=== PATIENT | male | born 1960 | race Hispanic/Latino ===

== ENCOUNTER → 2016-08-05 | Outpatient (REF) | payer MEDICARE, MEDICAID | LOC: M SFHCPLAZ 12:22 | PROVIDERS: ATTEND Family Medicine | DX: E11.9 Type 2 diabetes mellitus without complications (principal); Z86.39 Personal history of other endocrine, nutritional and metabolic disease | CPT/HCPCS: 36415; 82043; 83036; 84443; G0463 ==

== ENCOUNTER → 2016-09-15 | Outpatient (REF) | payer MEDICARE, MEDICAID | LOC: M SFHCPLAZ 14:24 | PROVIDERS: ATTEND Family Medicine | DX: N52.9 Male erectile dysfunction, unspecified (principal); E03.9 Hypothyroidism, unspecified | CPT/HCPCS: 36415; 84403; 84443; G0463 ==

== ENCOUNTER → 2016-10-29 | Outpatient (REF) | payer MEDICARE, MEDICAID | LOC: M LABDRAW1 13:55 | PROVIDERS: ATTEND Family Medicine | DX: M25.562 Pain in left knee (principal); E03.9 Hypothyroidism, unspecified; R73.01 Impaired fasting glucose ==

== ENCOUNTER → 2016-11-10 | Outpatient (REF) | payer MEDICARE, MEDICAID | LOC: M SFHCPLAZ 09:46 | PROVIDERS: ATTEND Family Medicine | DX: E11.65 Type 2 diabetes mellitus with hyperglycemia (principal) | CPT/HCPCS: 36415; 80061; 94010; G0463 ==

== ENCOUNTER → 2016-11-14 | Outpatient (CLI) | payer MEDICARE, MEDICAID ==
--- NOTE | 2016-11-14 12:00 | REP ---
Chest two views HISTORY: Shortness of breath Comparison: None The lungs are clear. The heart is normal in size. The pulmonary vasculature is normal in appearance. The bony structure is intact. IMPRESSION: No acute disease. Signed by Georges Young MD 11/14/2016 11:52 A
== END ==
LOC: M RAD 11:27
PROVIDERS: ATTEND Family Medicine
DX: R06.02 Shortness of breath (principal)

== ENCOUNTER → 2016-11-28 | Outpatient (CLI) | payer MEDICARE, MEDICAID ==
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
== END ==
LOC: M PAIN 10:00
PROVIDERS: ATTEND Anesthesiology
DX: G89.21 Chronic pain due to trauma (principal); M51.17 Intervertebral disc disorders with radiculopathy, lumbosacral region; M47.816 Spondylosis without myelopathy or radiculopathy, lumbar region; M47.817 Spondylosis without myelopathy or radiculopathy, lumbosacral region; M79.1 Myalgia; E11.42 Type 2 diabetes mellitus with diabetic polyneuropathy; E03.9 Hypothyroidism, unspecified; F51.01 Primary insomnia; F17.210 Nicotine dependence, cigarettes, uncomplicated; Z79.4 Long term (current) use of insulin; Z79.82 Long term (current) use of aspirin; Z79.899 Other long term (current) drug therapy; Z86.59 Personal history of other mental and behavioral disorders

== ENCOUNTER → 2016-12-02 | Outpatient (CLI) | payer MEDICARE, MEDICAID ==
--- NOTE | 2016-12-02 09:08 | REP ---
MR LUMBAR SPINE WITHOUT CONTRAST: HISTORY: Back pain. A rudimentary disc is present at the S1-2 level. Decreased signal intensity on T2-weighted images is present in the L5-S1 intervertebral disc. The disc is decreased in height. These findings are consistent with disc degeneration. There is no disc bulge or herniation at the L1-2 and L2-3 levels. The nerves exit the neural foramina without compression. A diffuse disc bulge is present at the L3-4 level. There is minimal compression of the thecal sac. The L3 nerves exit the neural foramina without compression. A diffuse disc bugle is present at the L4-5 level. There is minimal compression of the thecal sac. The L4 nerves exit the neural foramina without compression. A 5 mm cyst is present posterior to the left L4-5 facet joint. A diffuse disc bulge is present at the L5-S1 level. There is minimal compression of the thecal sac. There is hypertrophy of the posterior articulating facets. The L5 nerves exit the neural foramina without compression. The conus medullaris is normal in appearance terminating at the level of the T12-L1 intervertebral disc. A hemangioma is present in the L2 vertebral body. Normal signal intensity is present in the remaining lumbar vertebral bodies. IMPRESSION: Diffuse disc bulges at the L3-4 through L5-S1 levels with minimal thecal sac compression. Signed by Georges Young MD 12/02/2016 09:10 A
== END ==
LOC: M RAD 07:21
PROVIDERS: ATTEND Anesthesiology
DX: M51.86 Other intervertebral disc disorders, lumbar region (principal); M51.87 Other intervertebral disc disorders, lumbosacral region

== ENCOUNTER → 2016-12-17 | Outpatient (CLI) | payer MEDICARE, MEDICAID ==
--- NOTE | 2017-01-07 01:40 | ECWPNPC ---
PATIENT NAME: JESSICA MURRAY : 1960 GENDER: MALE VISIT DATE: 12/17/2016 DISCHARGE DATE: 12/17/16 1436 VISIT LOCKED DATE TIME: PHYSICIAN: FIDELIA ANDRADE RESOURCE: FIDELIA ANDRADE REASON FOR APPOINTMENT 1. LOW BACK PAIN-NEEDS ASSISTANCE W/PAPERWORK HISTORY OF PRESENT ILLNESS HISTORY OF PRESENT ILLNESS: PAIN THE PATIENT DESCRIBES THE PAIN... FALL RISK SCREENING: SCREENING :NO FALLS IN THE PAST YEAR TODAY'S VISIT: NOTES: RATES PAIN TODAY 7/10. DESCRIBES PAIN CENTERED ACROSS THE LOW BACK AND IS ACHING. CURRENT MEDICATIONS TAKING TRAMADOL HCL 50 MG TABLET 1 TABLET NEEDED ORALLY TWICE DAILY NEEDED FOR SEVERE PAIN. MDD: 2 TAKING CHANTIX STARTING MONTH EVON 0.5 MG X 11 & 1 MG X 42 TABLET DIRECTED ORALLY DIRECTED, NOTES: FOR SMOKING. TAKE 0.5 MG DAILY FOR THREE DAYS, THEN 0.5 MG TWICE DAILY FOR 3 DAYS, THEN 1 MG TWICE DAILY THEREAFTER. TAKING LEVOTHYROXINE SODIUM 75 MCG TABLET 1 TABLET ON AN EMPTY STOMACH IN THE MORNING ORALLY ONCE A DAY, NOTES: STOP 50 MCG TABS AND START 75 MCG TABS TAKING TERBINAFINE HCL 250 MG TABLET 1 TABLET ORALLY ONCE A DAY TAKING LAC-HYDRIN 12 % LOTION 2 GRAM, 2 PEA-SIZED AMOUNT, FOR THE BOTTOM OF EACH FOOT APPLICATION TO AFFECTED AREA EXTERNALLY TWICE A DAY TAKING GABAPENTIN 300 MG CAPSULE 1 TABLET ORALLY THREE TIMES A DAY TAKING PEN NEEDLES 1/2" 29G X 12MM MISCELLANEOUS DIRECTED SUBCUTANEOUSLY DAILY. DX: Z79.4 TAKING LISINOPRIL 2.5 MG TABLET 1 TABLET ORALLY ONCE A DAY TAKING VENLAFAXINE HCL ER 37.5 MG CAPSULE EXTENDED RELEASE 24 HOUR 1 CAPSULE WITH FOOD ORALLY ONCE A DAY TAKING ZYPREXA 5 MG TABLET 1 TABLET ORALLY AT BEDTIME, NOTES: FOR YOUR SCHIZOPHRENIA. TAKING TRAZODONE HCL 100 MG TABLET 1 TABLET AT BEDTIME ORALLY DAILY AT BEDTIME TAKING CHANTIX CONTINUING MONTH EVON 1 MG TABLET 1 TABLET ORALLY TWICE A DAY TAKING CIALIS 5 MG TABLET 1/2 TABLET ORALLY ONCE A DAY TAKING PROAIR HFA 108 (90 BASE) MCG/ACT AEROSOL SOLUTION 2 PUFFS NEEDED INHALATION EVERY 4 HRS TAKING FLUTICASONE PROPIONATE 50 MCG/ACT SUSPENSION 1 SPRAY IN EACH NOSTRIL NASALLY DAILY BEFORE BEDTIME TAKING METFORMIN HCL 500 MG TABLET 2 TABS ORALLY BEFORE BREAKFAST AND DINNER TAKING TOUJEO SOLOSTAR PENS 450 U/1.5ML PREFILLED PENS 55 UNITS SUBCUTANEOUSLY AT BREAKFAST, NOTES: CALL MD IF FASTING SUGARS ARE BELOW 80 OR GREATER THAN 150 FOR HELP WITH TITRATION. TAKING ATORVASTATIN CALCIUM 20 MG TABLET 1 TABLET ORALLY ONCE A DAY TAKING ASPIR-81 81 MG TABLET DELAYED RELEASE 1 TABLET ORALLY ONCE A DAY NOT-TAKING OXYCODONE HCL 30 MG TABLET 1 TABLET NEEDED ORALLY BID, NOTES: NO LONGER TAKING NOT-TAKING ROXICODONE 30 MG TABLET 1 TABLET NEEDED ORALLY BEFORE BEDTIME, NOTES: NO LONGER TAKING NOT-TAKING GABAPENTIN 300 MG CAPSULE 1 CAPSULE ORALLY THREE TIMES A DAY NOT-TAKING TRAMADOL HCL 50 MG TAB TAKE ONE TABLET BY MOUTH TWICE A DAY NEEDED FOR SEVERE PAIN MAXIMUM DAILY DOSE = 2 TABLETS , NOTES: DUPLICATE NOT-TAKING HUMULIN 70/30 (70-30) 100 UNIT/ML SUSPENSION INJ 30 UNITS SQ AT 9 AM AND 25 UNITS AT 9 PM SUBCUTANEOUS TWICE A DAY NOT-TAKING RESTORIL 30 MG CAPSULE 1 CAPSULE AT BEDTIME NEEDED ORALLY ONCE A DAY, NOTES: HAS NOT TAKEN IN MONTHS..WILL OBTAIN RECORDS MEDICATION LIST REVIEWED AND RECONCILED WITH THE PATIENT PAST MEDICAL HISTORY SCHIZOPHRENIA? - [place] CHRONIC PAIN GOITER S/P RESECTION IDDM, WITH POLYNEUROPATHY, ON TOUJEO 50 UNITS HS HYPOTHYROIDISM HIGH CHOLESTEROL S/P HEAD INJURY FROM FALL 2003 ALLERGIES N.K.D.A. REVIEW OF SYSTEMS REVIEWED BY: PROVIDER: FIDELIA TORO . CONSTITUTIONAL: ANY CHANGE IN YOUR MEDICAL CONDITION? NO . CHILLS NO . FEVER NO . INFECTION: DO YOU HAVE NEW INFECTIONS? NO . DO YOU HAVE HISTORY OF MRSA? NO . MUSCULOSKELETAL: ANY NEW PATTERNS OF PAIN OR NUMBNESS? YES . GASTROENTEROLOGY: ANY NEW CHANGE IN BOWEL CONTROL? NO . GENITOURINARY: ANY NEW CHANGE IN BLADDER CONTROL? NO . IS THERE A CHANCE YOU COULD BE ? NO . HEMATOLOGY/LYMPH: DO YOU TAKE ANY BLOOD THINNERS? (FOR EXAMPLE- COUMADIN, PLAVIX, AGGRENOX, PLATEL, PRADAXA, OR XARELTO) NO . WHEN WAS YOUR LAST DOSE? DATE: TIME: . NEUROLOGY: HAVE YOU FALLEN IN THE PAST 6 MONTHS? NO . ANY NEW EXTREMITY NUMBNESS OR WEAKNESS? NO . CARDIOLOGY: DO YOU HAVE A PACEMAKER OR DEFIBRILLATOR? NO . RESPIRATORY: HAVE YOU BEEN SICK IN THE PAST WEEK? NO . FEVER NO . FLU LIKE SYMPTOMS? NO . DO YOU USE ANY TYPE OF TOBACCO (SMOKE, SMOKELESS, CHEW)? ON CHANTIX STARTING SMOKING CESSATION . COUGH NO . INTEGUMENTARY: DO YOU HAVE ANY RASHES OR OPEN SORES? NO . ALLERGIC/IMMUNO: ARE YOU ALLERGIC TO SHELLFISH OR IV DYE? NO . ANY NEW ALLERGIES? NO . PSYCHIATRIC: DO YOU HAVE THOUGHTS OF HURTING YOURSELF OR SOMEONE ELSE? NO . ARE YOU ABUSED, NEGLECTED, OR IN AN UNSAFE ENVIRONMENT? NO . ENDOCRINOLOGY: ARE YOU DIABETIC? YES - BLOOD SUGARS 90-115 . OTHER: DO YOU NEED ANY PRESCRIPTIONS? YES . IF YES, PLEASE LIST: PAIN MEDICATIONS (TOOK OXY AT OTHER CLINIC) . ANY NEW PROBLEMS WITH YOUR MEDICATIONS? NO . WHEN DID YOU LAST EAT? ____ . WHEN DID YOU LAST DRINK? ____ . WHAT DID YOU LAST DRINK? ____ . NAME OF PERSON DRIVING YOU HOME? ____ . DO YOU HAVE ANY OTHER QUESTIONS OR CONCERNS NO . VITAL SIGNS WT 213 LBS, HT 5'10.5", BMI 30.13 INDEX, BP 112/67 MM HG, HR 62 /MIN, RR 18 /MIN, OXYGEN SAT % 99, REVIEWED BY: NL. EXAMINATION GENERAL EXAMINATION: PSYCHALERT , ORIENTED X 3 . LUNGS:CLEAR TO AUSCULTATION BILATERALLY. HEART:HEART RATE REGULAR. MUSCULOSKELETAL:MUSCLE STRENGTH TESTING 5/5 BILATERAL LOWER EXTREMITIES. TENDER TO PALPATION OVER LUMBOSACRAL AXIS. 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 SPONDYLOSIS WITHOUT MYELOPATHY OR RADICULOPATHY, LUMBOSACRAL REGION INJECTION FACET JOINT/NERVE LUMBAR/SACRALFIDELIA ANDRADE 12/17/2016 2:18:14 PM > BILATERAL LUMBAR FACET BLOCK - THERAPEUTIC PREVENTIVE MEDICINE DIUSCUSSED PREPROCEDURE CARE WITH PT AND REVIEWED WITH HIS FAMILY / EXPRESSED UNDERSTANDING. PROCEDURE CODES FA211 ESTABILISHED PATIENT [facility] CHARGE G8730 PAIN ASSESS POS TOOL F/U PLAN DOC G8427 DOC MEDS VERIFIED W/PT OR RE DISPOSITION & COMMUNICATION FOLLOW UP AFTER INJECTION (REASON: CHECK AUTH FOR PT AND THERAPEUTIC LUMBAR FACET BLOCK L4-5 AND L5-S1) ELECTRONICALLY SIGNED BY DEONTE FAY ON 01/06/2017 AT 06:13 PM EDT DISCLAIMER : THIS IS A VISIT SUMMARY EXTRACTED FROM THE [employer] CHART. IT IS NOT A COPY OF THE [employer] PROGRESS NOTE. QAMAR
== END ==
LOC: M PAIN 13:15
PROVIDERS: ATTEND Nurse Practitioner Family
DX: G89.29 Other chronic pain (principal); M51.17 Intervertebral disc disorders with radiculopathy, lumbosacral region; M47.816 Spondylosis without myelopathy or radiculopathy, lumbar region; M47.817 Spondylosis without myelopathy or radiculopathy, lumbosacral region; M79.1 Myalgia; Z87.820 Personal history of traumatic brain injury; Z79.4 Long term (current) use of insulin; Z79.82 Long term (current) use of aspirin; Z79.899 Other long term (current) drug therapy

== ENCOUNTER → 2016-12-31 | Outpatient (CLI) | payer MEDICARE, MEDICAID ==
[~2016-12-31] MED LIST: BUPIVACAINE HCL 0.25% 30 ML VIAL As Ordered ONE; ISOVUE-M 300 61% 15ML VIAL (Q9967) As Ordered ONE; LIDOCAINE 1% SDV INJ 30 ML VIAL As Ordered ONE; TRIAMCINOLONE ACETONIDE SUSP 40 MG/ML VIAL (J3301) As Ordered ONE; diazePAM 5 MG TAB As Ordered ONE; oxyCODONE 5MG TAB As Ordered ONE
--- NOTE | 2016-12-31 13:32 | REP ---
Partial lumbar spine series: Single view . History: Injection procedure for pain. 19 seconds of fluoroscopy time is reported. Findings: A single fluoroscopically obtained last image hold procedural spot radiograph of the lumbar spine documents needle position and contrast injection associated with injection procedure. Signed by Reji Robles MD 12/31/2016 01:23 P
--- NOTE | 2017-01-01 00:02 | ECWPNPC ---
PATIENT NAME: JESSICA MURRAY : 1960 GENDER: MALE VISIT DATE: 12/31/2016 DISCHARGE DATE: 12/31/16 1326 VISIT LOCKED DATE TIME: PHYSICIAN: RUBY FERNANDEZ RESOURCE: RUBY FERNANDEZ REASON FOR APPOINTMENT 1. KEEGAN LUMBER FACET, THERA CURRENT MEDICATIONS TAKING LEVOTHYROXINE SODIUM 75 MCG TABLET 1 TABLET ON AN EMPTY STOMACH IN THE MORNING ORALLY ONCE A DAY, NOTES: 12-30-16 1500 TAKING TERBINAFINE HCL 250 MG TABLET 1 TABLET ORALLY ONCE A DAY, NOTES: ? TAKING LAC-HYDRIN 12 % LOTION 2 GRAM, 2 PEA-SIZED AMOUNT, FOR THE BOTTOM OF EACH FOOT APPLICATION TO AFFECTED AREA EXTERNALLY TWICE A DAY, NOTES: NONE TAKING GABAPENTIN 300 MG CAPSULE 1 TABLET ORALLY THREE TIMES A DAY, NOTES: NONE TAKING PEN NEEDLES 1/2" 29G X 12MM MISCELLANEOUS DIRECTED SUBCUTANEOUSLY DAILY. DX: Z79.4 TAKING LISINOPRIL 2.5 MG TABLET 1 TABLET ORALLY ONCE A DAY, NOTES: 12-30-16 1500 TAKING VENLAFAXINE HCL ER 37.5 MG CAPSULE EXTENDED RELEASE 24 HOUR 1 CAPSULE WITH FOOD ORALLY ONCE A DAY, NOTES: NONE TAKING ZYPREXA 5 MG TABLET 1 TABLET ORALLY AT BEDTIME, NOTES: 12-30-161499 TAKING TRAZODONE HCL 100 MG TABLET 1 TABLET AT BEDTIME ORALLY DAILY AT BEDTIME, NOTES: 12-29-16 TAKING CHANTIX CONTINUING MONTH EVON 1 MG TABLET 1 TABLET ORALLY TWICE A DAY TAKING CIALIS 5 MG TABLET 1/2 TABLET ORALLY ONCE A DAY TAKING PROAIR HFA 108 (90 BASE) MCG/ACT AEROSOL SOLUTION 2 PUFFS NEEDED INHALATION EVERY 4 HRS, NOTES: 12-30-16 TAKING FLUTICASONE PROPIONATE 50 MCG/ACT SUSPENSION 1 SPRAY IN EACH NOSTRIL NASALLY DAILY BEFORE BEDTIME, NOTES: 12-30-16 2100 TAKING METFORMIN HCL 500 MG TABLET 2 TABS ORALLY BEFORE BREAKFAST AND DINNER, NOTES: 12-30-16 0900 TAKING TOUJEO SOLOSTAR PENS 450 U/1.5ML PREFILLED PENS 55 UNITS SUBCUTANEOUSLY AT BREAKFAST, NOTES: 12-30-16 1800 TAKING ATORVASTATIN CALCIUM 20 MG TABLET 1 TABLET ORALLY ONCE A DAY, NOTES: 12-29-16 2100 TAKING ASPIR-81 81 MG TABLET DELAYED RELEASE 1 TABLET ORALLY ONCE A DAY, NOTES: 12-30-16 0900 TAKING BACLOFEN 10 MG TABLET 1 TABLET WITH FOOD OR MILK ORALLY THREE TIMES A DAY, NOTES: 12-30-162099 TAKING TRAMADOL HCL 50 MG TABLET 1 TABLET NEEDED ORALLY TWICE DAILY NEEDED FOR SEVERE PAIN. MDD: 2, NOTES: 12-30-162099 NOT-TAKING CHANTIX STARTING MONTH EVON 0.5 MG X 11 & 1 MG X 42 TABLET DIRECTED ORALLY DIRECTED, NOTES: 12-29-16 DISCONTINUED OXYCODONE HCL 30 MG TABLET 1 TABLET NEEDED ORALLY BID, NOTES: NO LONGER TAKING DISCONTINUED ROXICODONE 30 MG TABLET 1 TABLET NEEDED ORALLY BEFORE BEDTIME, NOTES: NO LONGER TAKING DISCONTINUED GABAPENTIN 300 MG CAPSULE 1 CAPSULE ORALLY THREE TIMES A DAY DISCONTINUED TRAMADOL HCL 50 MG TAB TAKE ONE TABLET BY MOUTH TWICE A DAY NEEDED FOR SEVERE PAIN MAXIMUM DAILY DOSE = 2 TABLETS , NOTES: DUPLICATE DISCONTINUED HUMULIN 70/30 (70-30) 100 UNIT/ML SUSPENSION INJ 30 UNITS SQ AT 9 AM AND 25 UNITS AT 9 PM SUBCUTANEOUS TWICE A DAY DISCONTINUED RESTORIL 30 MG CAPSULE 1 CAPSULE AT BEDTIME NEEDED ORALLY ONCE A DAY, NOTES: HAS NOT TAKEN IN MONTHS..WILL OBTAIN RECORDS MEDICATION LIST REVIEWED AND RECONCILED WITH THE PATIENT PAST MEDICAL HISTORY SCHIZOPHRENIA? - [place] CHRONIC PAIN GOITER S/P RESECTION IDDM, WITH POLYNEUROPATHY, ON TOUJEO 50 UNITS HS HYPOTHYROIDISM HIGH CHOLESTEROL S/P HEAD INJURY FROM FALL 2003 ALLERGIES N.K.D.A. VITAL SIGNS WT 208 LBS, HT 5'10.5", BMI 29.42 INDEX, BP 99/58 MM HG, HR 58 /MIN, RR 18 /MIN, TEMP 97.5 F, OXYGEN SAT % 96%, NA INITIALS AW 1111, REVIEWED BY: CM. ASSESSMENTS SPONDYLOSIS OF LUMBAR REGION WITHOUT MYELOPATHY OR RADICULOPATHY - M47.816 (PRIMARY) SPONDYLOSIS OF LUMBOSACRAL REGION WITHOUT MYELOPATHY OR RADICULOPATHY - M47.817 PROCEDURES PN LUMBAR FACET BLOCK THERAPEUTIC PRE PROCEDURE DIAGNOSIS LUMBAR SPONDYLOSIS, LUMBOSACRAL SPONDYLOSIS POST PROCEDURE DIAGNOSIS LUMBAR SPONDYLOSIS, LUMBOSACRAL SPONDYLOSIS PROCEDURE RIGHT L4-L5 AND RIGHT L5-S1 LUMBAR FACET THERAPEUTIC BLOCK SURGEON DR. RUBY FERNANDEZ SOAKERS SUPERVISOR NONE ANESTHESIA LOCAL PRE PROCEDURE NOTE THE PATIENT HAS A HISTORY OF CHRONIC LOW BACK PAIN. I EVALUATE THE PATIENT AND REVIEWED THE CHART. I WENT OVER THE RISKS, ALTERNATIVES, AND BENEFITS ASSOCIATED WITH THIS PROCEDURE. THE PATIENT WOULD LIKE TO PROCEED AND GIVE CONSENT TO PERFORMED THE PROCEDURE. THE PATIENT DENIES UNEXPLAINABLE WEIGHT LOSS, FEVER, CHILLS, OR NEW CHANGES IN URINARY OR BOWEL CONTROL DESCRIPTION OF PROCEDURE THE PATIENT WAS BROUGHT TO THE PROCEDURE ROOM AND PLACED IN THE PRONE POSITION. THE LUMBOSACRAL AREA WAS CLEANED WITH CHLORAPREP SOLUTION AND DRAPED ASEPTICALLY. THE PROCEDURE WAS DONE UNDER STERILE CONDITIONS. I CHECKED LATERALITY AND THE LEVEL WHERE THE PROCEDURE WAS GOING TO BE PERFORMED WITH THE PATIENT AND THE SUPPORTING STAFF AT THE MOMENT OF THE TIME OUT IN THE PROCEDURE ROOM. UNDER FLUOROSCOPIC GUIDANCE, THE TARGET POINT WAS SELECTED AT THE RIGHT L4-L5 AND RIGHT L5-S1 FACET JOINT. TARGET POINT WAS SELECTED AFTER LATERAL ROTATION AND TILT OF THE MAGNIFIER OF THE C-ARM. LIDOCAINE 0.5% WAS USED TO NUMB THE SKIN AND THE SUBCUTANEOUS TISSUE BELOW IT. SPINAL NEEDLES, 22-GAUGE, WERE ADVANCED UNDER FLUOROSCOPIC GUIDANCE AND FOLLOWING PATIENT FEEDBACK UNTIL THE TARGETS WERE TOUCHED. THE POSITION OF THE NEEDLES WAS VERIFIED WITH AP AND LATERAL VIEWS. AFTER PROPER POSITION OF THE NEEDLES WAS ACHIEVED, ISOVUE-M DYE 30% 0.1 ML WAS INJECTED SHOWING ADEQUATE SPREAD OF THE DYE. THEN A SOLUTION OF 1.9 ML OF BUPIVACAINE 0.125% OF KENALOG 10 MG WAS INJECTED AT EACH SITE. THERE WAS NO EVIDENCE OF BLOOD, PARESTHESIA OR CEREBROSPINAL FLUID DURING THE PROCEDURE. THE PATIENT WAS SENT TO THE RECOVERY ROOM. THE PATIENT WAS MOVING THE EXTREMITIES AND DOING WELL. THERE WAS NO COMPLICATION DURING THE PROCEDURE. FLUOROSCOPY TIME WAS 19 SECONDS POST PROCEDURE NOTE THE PATIENT WILL BE SEEN IN A FOLLOW UP IN THE NEXT FEW WEEKS. INSTRUCTIONS WERE GIVEN, QUESTIONS WERE ANSWERED, AND THE PATIENT EXPRESSED UNDERSTANDING AND AGREES WITH THE PLAN. I, PHUC GREER, DOCUMENTED THE ABOVE INFORMATION ACTING A SCRIBE FOR DR. FERNANDEZ. I HAVE REVIEWED THE ABOVE DOCUMENT, WRITTEN BY PHUC PETER AND I VERIFY THAT IT IS ACCURATE DIAGNOSTIC IMAGING [facility] FACET BLOCK (PAIN)[id number] PROCEDURE CODES 39032 INJ PARAVERT F JNT L/S 1 LEV 43597 INJ PARAVERT F JNT L/S 2 LEV 6045F RADXPS IN END [id number] PXD DISPOSITION & COMMUNICATION FOLLOW UP 3 WEEKS ELECTRONICALLY SIGNED BY RUBY FERNANDEZ MD ON 12/31/2016 AT 09:23 PM EDT DISCLAIMER : THIS IS A VISIT SUMMARY EXTRACTED FROM THE [employer] CHART. IT IS NOT A COPY OF THE [employer] PROGRESS NOTE. QAMAR
== END ==
LOC: M PAIN 11:00
PROVIDERS: ATTEND Anesthesiology
DX: G89.29 Other chronic pain (principal); M47.816 Spondylosis without myelopathy or radiculopathy, lumbar region; M47.817 Spondylosis without myelopathy or radiculopathy, lumbosacral region; F25.9 Schizoaffective disorder, unspecified; E11.9 Type 2 diabetes mellitus without complications; E03.9 Hypothyroidism, unspecified; F51.01 Primary insomnia; F17.200 Nicotine dependence, unspecified, uncomplicated; Z79.4 Long term (current) use of insulin; Z79.82 Long term (current) use of aspirin; Z79.899 Other long term (current) drug therapy
CPT/HCPCS: 64493; 64494; J3301; Q9967

== ENCOUNTER 2017-01-08 07:13 | Outpatient (RCR) | payer MEDICARE, MEDICAID | END 2017-01-10 | LOC: M PT 07:13 | PROVIDERS: ATTEND Nurse Practitioner Family | DX: Z51.89 Encounter for other specified aftercare (principal); M51.17 Intervertebral disc disorders with radiculopathy, lumbosacral region; M47.816 Spondylosis without myelopathy or radiculopathy, lumbar region; M47.817 Spondylosis without myelopathy or radiculopathy, lumbosacral region; M79.1 Myalgia | CPT/HCPCS: 97110; 97140; 97162; G8978; G8979 ==

== ENCOUNTER 2017-01-29 08:22 | Outpatient (RCR) | payer MEDICARE, MEDICAID | END 2017-02-10 | LOC: M PT 08:22 | PROVIDERS: ATTEND Nurse Practitioner Family | DX: Z51.89 Encounter for other specified aftercare (principal); M79.1 Myalgia; M51.17 Intervertebral disc disorders with radiculopathy, lumbosacral region; M47.816 Spondylosis without myelopathy or radiculopathy, lumbar region; M47.817 Spondylosis without myelopathy or radiculopathy, lumbosacral region ==

== ENCOUNTER → 2017-02-24 | Outpatient (CLI) | payer MEDICARE, MEDICAID ==
--- NOTE | 2017-03-12 00:38 | ECWPNPC ---
PATIENT NAME: JESSICA MURRAY : 1960 GENDER: MALE VISIT DATE: 02/24/2017 DISCHARGE DATE: 02/24/17 0951 VISIT LOCKED DATE TIME: PHYSICIAN: FIDELIA ANDRADE RESOURCE: FIDELIA ANDRADE REASON FOR APPOINTMENT 1. MEDS HISTORY OF PRESENT ILLNESS HISTORY OF PRESENT ILLNESS: PAIN THE PATIENT DESCRIBES THE PAIN... FALL RISK SCREENING: SCREENING :NO FALLS IN THE PAST YEAR TODAY'S VISIT: NOTES: RATES PAIN TODAY 8/10. DESCRIBES PAIN CONSTANT, SHARP AND STABBING. PAIN IS CENTED OVER LUMBAR SPINEIS S/P BI;ATERAL LUMBAR FACET BLOCK COMPLETED ON 12/31/16. REPORTS THIS WAS HELPFUL AT DECREASING PAIN IN LOW BACK. . CURRENT MEDICATIONS TAKING CHANTIX CONTINUING MONTH EVON 1 MG TABLET 1 TABLET ORALLY TWICE A DAY TAKING CHANTIX STARTING MONTH EVON 0.5 MG X 11 & 1 MG X 42 TABLET DIRECTED ORALLY DIRECTED TAKING TERBINAFINE HCL 250 MG TABLET 1 TABLET ORALLY ONCE A DAY, NOTES: ? TAKING PEN NEEDLES 1/2" 29G X 12MM MISCELLANEOUS DIRECTED SUBCUTANEOUSLY DAILY. DX: Z79.4 TAKING TRAZODONE HCL 100 MG TABLET 1 TABLET AT BEDTIME ORALLY DAILY AT BEDTIME TAKING CIALIS 5 MG TABLET 1/2 TABLET ORALLY ONCE A DAY TAKING PROAIR HFA 108 (90 BASE) MCG/ACT AEROSOL SOLUTION 2 PUFFS NEEDED INHALATION EVERY 4 HRS TAKING FLUTICASONE PROPIONATE 50 MCG/ACT SUSPENSION 1 SPRAY IN EACH NOSTRIL NASALLY DAILY BEFORE BEDTIME TAKING ADVAIR HFA 115-21 MCG/ACT AEROSOL 2 PUFFS INHALATION TWICE A DAY TAKING AEROCHAMBER W/FLOWSIGNAL - MISCELLANEOUS DIRECTED USE WITH ALBUTEROL AND ADVAIR DIRECTED. DX J44.1 TAKING TRAMADOL HCL 50 MG TABLET 1 TABLET NEEDED ORALLY TWICE DAILY NEEDED FOR SEVERE PAIN. MDD: 2 TAKING VENLAFAXINE HCL ER 75 MG TABLET EXTENDED RELEASE 24 HOUR 1 CAPSULE WITH FOOD ORALLY ONCE A DAY TAKING METFORMIN HCL 500 MG TABLET 2 TABS ORALLY BEFORE BREAKFAST AND DINNER TAKING TOUJANICE SOLOSTAR PENS 450 U/1.5ML PREFILLED PENS 28 UNITS AT BREAKFAST AND 20 UNITS AT DINNER SUBCUTANEOUSLY TWICE DAILY DIRECTED TAKING ATORVASTATIN CALCIUM 20 MG TABLET 1 TABLET ORALLY ONCE A DAY TAKING ASPIR-81 81 MG TABLET DELAYED RELEASE 1 TABLET ORALLY ONCE A DAY TAKING LEVOTHYROXINE SODIUM 75 MCG TABLET 1 TABLET ON AN EMPTY STOMACH IN THE MORNING ORALLY ONCE A DAY, NOTES: [id number] TAKING LAC-HYDRIN 12 % LOTION 2 GRAM, 2 PEA-SIZED AMOUNT, FOR THE BOTTOM OF EACH FOOT APPLICATION TO AFFECTED AREA EXTERNALLY TWICE A DAY, NOTES: NONE TAKING GABAPENTIN 300 MG CAPSULE 2 TABLET ORALLY THREE TIMES A DAY, NOTES: NONE TAKING LISINOPRIL 2.5 MG TABLET 1 TABLET ORALLY ONCE A DAY TAKING ZYPREXA 5 MG TABLET 1 TABLET ORALLY AT BEDTIME TAKING BACLOFEN 10 MG TABLET 1 TABLET WITH FOOD OR MILK ORALLY THREE TIMES A DAY MEDICATION LIST REVIEWED AND RECONCILED WITH THE PATIENT PAST MEDICAL HISTORY SCHIZOPHRENIA? - [place] CHRONIC PAIN GOITER S/P RESECTION IDDM, WITH POLYNEUROPATHY, ON TOUJEO 50 UNITS HS HYPOTHYROIDISM HIGH CHOLESTEROL S/P HEAD INJURY FROM FALL 2003 ALLERGIES N.K.D.A. SOCIAL HISTORY GENERAL: TOBACCO USE ARE YOU A:CURRENT SMOKER HOW MANY CIGARETTES A DAY DO YOU SMOKE?5 OR LESS HOW SOON AFTER YOU WAKE UP DO YOU SMOKE YOUR FIRST CIGARETTE?AFTER 60 MIN HOW OFTEN DO YOU SMOKE CIGARETTES?EVERY DAY PATIENT COUNSELED ON THE DANGERS OF TOBACCO USE AND URGED TO QUIT:08/05/2016 ARE YOU INTERESTED IN QUITTING?READY TO QUIT PREVIOUS QUIT ATTEMPTS?YES, MORE THAN 6 MONTHS AGO. COUNSELED THE PATIENT ON TOBACCO USE, CESSATION [id number]/25/2017 SMOKING CESSATION INFORMATION GIVEN08/05/2016 BMI CARE GOAL FOLLOW-UP ABOVE NORMAL BMI FOLLOW-UPGIVING ENCOURAGEMENT TO EXERCISE ALCOHOL SCREENING DID YOU HAVE A DRINK CONTAINING ALCOHOL IN THE PAST YEAR?NO POINTS0 INTERPRETATIONNEGATIVE RECREATIONAL DRUG USE DRUG USE?NO CAFFEINE CAFFEINE USE?YES COFFEE- 1 CUP A DAY, TEA- TWICE A DAY, SODA- 3 CANS A DAY SEXUAL HX HAD SEX IN THE LAST 12 MONTHS (VAGINAL, ORAL, OR ANAL)?NO HAVE YOU EVER HAD AN STD?NO HIV / HEP-C SCREENING HIV TEST OFFERED TO PATIENT:YES DATE OFFERED:08/05/2016 TEST ACCEPTED:NO REASON:PATIENT DECLINED HEP-C TEST OFFERED TO PATIENT:YES DATE OFFERED:08/05/2016 TEST ACCEPTED:NO REASON:PATIENT DECLINED OCCUPATION: FORMERLY WORKED IN CONSTRUCTION; 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 DIET: CARBOHYDRATE CONTROLLED. EXERCISE: WALKS. MARITAL STATUS: SINGLE; HAS A GIRLFRIEND, . OTHERS AT HOME: LIVES WITH GUSIICAMILA. SHINTO [id number] JEWISH LANGUAGE LANGUAGES SPOKEN:BOTH KOREAN AND WOLOF LEARNING BARRIERS / SPECIAL NEEDS CHANGE FROM LAST VISIT?NO BARRIERS TO LEARNING?NO HEARING IMPAIRED?NO VISION IMPAIRED?NO COGNITIVELY IMPAIRED?NO READINESS TO LEARN?YES LEARNING PREFERENCES?YES :TAPES/VIDEOS, DEMONSTRATION/VERBAL INSTRUCTION LEARNING CAPABILITIES PRESENT?YES NEEDS HELP READING EMOTIONAL BARRIERS?NO SPECIAL DEVICES?YES :CANE, BRACE MARKETING DEVELOPMENT REPRESENTATIVE NEEDED?NO PAIN CLINIC PFS, CLERGY, PUBLIC HEALTH REFERRALS PFS REFERRAL NEEDED?NO CLERGY REFERRAL NEEDED?NO PUBLIC HEALTH REFERRAL NEEDED?NO HAS THE PATIENT BEEN EDUCATED REGARDING HIS/HER PLAN OF CARE?YES HAS THE PATIENT BEEN EDUCATED REGARDING PAIN, THE RISK FOR PAIN, THE IMPORTANCE OF EFFECTIVE PAIN MANAGEMENT, AND THE PAIN ASSESSMENT PROCESS?YES REVIEW OF SYSTEMS REVIEWED BY: PROVIDER: . CONSTITUTIONAL: ANY CHANGE IN YOUR MEDICAL CONDITION? NO . CHILLS NO . FEVER NO . INFECTION: DO YOU HAVE NEW INFECTIONS? NO . DO YOU HAVE HISTORY OF MRSA? NO . MUSCULOSKELETAL: ANY NEW PATTERNS OF PAIN OR NUMBNESS? NO . GASTROENTEROLOGY: ANY NEW CHANGE IN BOWEL CONTROL? NO . GENITOURINARY: ANY NEW CHANGE IN BLADDER CONTROL? NO . IS THERE A CHANCE YOU COULD BE ? NO . HEMATOLOGY/LYMPH: DO YOU TAKE ANY BLOOD THINNERS? (FOR EXAMPLE- COUMADIN, PLAVIX, AGGRENOX, PLATEL, PRADAXA, OR XARELTO) NO . WHEN WAS YOUR LAST DOSE? DATE: TIME: . NEUROLOGY: HAVE YOU FALLEN IN THE PAST 6 MONTHS? NO . ANY NEW EXTREMITY NUMBNESS OR WEAKNESS? NO . CARDIOLOGY: DO YOU HAVE A PACEMAKER OR DEFIBRILLATOR? NO . RESPIRATORY: HAVE YOU BEEN SICK IN THE PAST WEEK? NO . FEVER NO . FLU LIKE SYMPTOMS? NO . COUGH NO . INTEGUMENTARY: DO YOU HAVE ANY RASHES OR OPEN SORES? NO . ALLERGIC/IMMUNO: ARE YOU ALLERGIC TO SHELLFISH OR IV DYE? NO . ANY NEW ALLERGIES? NO . PSYCHIATRIC: DO YOU HAVE THOUGHTS OF HURTING YOURSELF OR SOMEONE ELSE? NO . ARE YOU ABUSED, NEGLECTED, OR IN AN UNSAFE ENVIRONMENT? NO . ENDOCRINOLOGY: ARE YOU DIABETIC? YES . OTHER: DO YOU NEED ANY PRESCRIPTIONS? YES " I NEED HELP WITH BACK PAIN" . IF YES, PLEASE LIST: ____ . ANY NEW PROBLEMS WITH YOUR MEDICATIONS? NO . WHEN DID YOU LAST EAT? ____ . WHEN DID YOU LAST DRINK? ____ . WHAT DID YOU LAST DRINK? ____ . NAME OF PERSON DRIVING YOU HOME? ____ . DO YOU HAVE ANY OTHER QUESTIONS OR CONCERNS NO . SKIN: DO YOU HAVE ANY RASHES OR OPEN SORES? STATES RASH UNDER ARMS . VITAL SIGNS WT 208.0 LBS, HT 5'10.5", BMI 29.42 INDEX, BP 120/59 MM HG, HR 59 /MIN, RR 18 /MIN, TEMP 97.3 F, OXYGEN SAT % 98%, NA INITIALS TL 0857. 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 HAS BEEN TO PHYSICAL THERAPY. STATES IS DOING HIS EXERCISES. USE ASPER CREME, KELLY ICE, OR BIOFREEZE. WALK EVERY DAY. PROCEDURE CODES FA211 ESTABILISHED PATIENT [facility] CHARGE DISPOSITION & COMMUNICATION FOLLOW UP 6 MONTH (REASON: BACK PAIN) ELECTRONICALLY SIGNED BY DEONTE FAY ON 03/10/2017 AT 08:49 AM EST DISCLAIMER : THIS IS A VISIT SUMMARY EXTRACTED FROM THE [employer] CHART. IT IS NOT A COPY OF THE [employer] PROGRESS NOTE. QAMAR
== END | disposition home or self-care (01) ==
LOC: M PAIN 09:00
PROVIDERS: ATTEND Nurse Practitioner Family
DX: G89.29 Other chronic pain (principal); M79.1 Myalgia; M51.17 Intervertebral disc disorders with radiculopathy, lumbosacral region; M47.816 Spondylosis without myelopathy or radiculopathy, lumbar region; M47.817 Spondylosis without myelopathy or radiculopathy, lumbosacral region; Z86.39 Personal history of other endocrine, nutritional and metabolic disease; E11.42 Type 2 diabetes mellitus with diabetic polyneuropathy; E03.9 Hypothyroidism, unspecified; E78.00 Pure hypercholesterolemia, unspecified; Z79.899 Other long term (current) drug therapy; Z79.82 Long term (current) use of aspirin; Z79.4 Long term (current) use of insulin; F17.210 Nicotine dependence, cigarettes, uncomplicated

== ENCOUNTER 2017-04-15 06:00 | Day surgery (SDC) | payer MEDICARE, MEDICAID ==
[2017-04-15] MEDS: LIDOCAINE 3.5 % 1ML OPHTH TOPICAL GEL OU (06:31)
[2017-04-15] MEDS: LR 1,000 ML IV (06:31)
[2017-04-15 06:39] LABS: BEDSIDE GLUCOSE 145 MG/DL (70-105)
[2017-04-15] MEDS: TETRACAINE 0.5% OPHTH SOLN 4ML As Ordered (07:12)
[2017-04-15] MEDS ORDERED: MIDAZOLAM INJ 2 MG/2 ML VIAL (J2250) As Ordered (07:49)
[2017-04-15] MEDS ORDERED: DESFLURANE 240 ML INHALANT As Ordered (07:49)
[2017-04-15] MEDS ORDERED: GLYCOPYRROLATE INJ 0.2 MG/ML 2 ML VIAL As Ordered (07:49)
[2017-04-15] MEDS ORDERED: PROPOFOL 200 MG/20 ML VIAL As Ordered (07:49)
[2017-04-15] MEDS ORDERED: fentaNYL 100 MCG/2 ML INJECTION (J3010) As Ordered (07:49)
[2017-04-15] MEDS ORDERED: LIDOCAINE 2% INJ 100 MG/5 ML SDV (FOR ANES.) As Ordered (07:49)
[2017-04-15] MEDS: POVIDONE-IODINE 5% OPHTH PREP SOL 30ML As Ordered (07:55)
[2017-04-15] MEDS: ERYTHROMYCIN OPHTH OINT As Ordered (08:25)
[2017-04-15] MEDS: LIDOCAINE 2% W/EPIN INJ 20ML **PRES FREE As Ordered (08:28)
== END 2017-04-15 09:49 | disposition home or self-care (01) ==
LOC: M SDC 06:00
DX: H02.401 Unspecified ptosis of right eyelid (principal); T88.59XD Other complications of anesthesia, subsequent encounter; I10 Essential (primary) hypertension; E78.00 Pure hypercholesterolemia, unspecified; E10.9 Type 1 diabetes mellitus without complications; E03.9 Hypothyroidism, unspecified; R06.02 Shortness of breath; Z79.899 Other long term (current) drug therapy; Z79.84 Long term (current) use of oral hypoglycemic drugs; Z79.4 Long term (current) use of insulin; Z72.0 Tobacco use
CPT/HCPCS: 67904

== ENCOUNTER → 2017-05-06 | Outpatient (REF) | payer MEDICARE, MEDICAID | LOC: M SFHCPLAZ 08:39 | DX: E11.9 Type 2 diabetes mellitus without complications (principal); Z53.8 Procedure and treatment not carried out for other reasons ==

== ENCOUNTER → 2017-05-18 | Outpatient (CLI) | payer MEDICARE, MEDICAID, OTHER ==
[2017-05-18 10:58] LABS: ESTIMATED AVERAGE GLUCOSE 169 MG/DL (60-110); HEMOGLOBIN A1c 7.5 %
== END ==
LOC: M LAB 08:04
DX: E11.9 Type 2 diabetes mellitus without complications (principal)
CPT/HCPCS: 83036

== ENCOUNTER → 2017-07-08 | Outpatient (CLI) | payer MEDICARE, MEDICAID | LOC: M SLEEP 18:59 | DX: G47.30 Sleep apnea, unspecified (principal) | CPT/HCPCS: 95810 ==

== ENCOUNTER → 2017-08-06 | Outpatient (REF) | payer MEDICARE, MEDICAID ==
[2017-08-06 11:40] LABS: BASO # 0.1 10^3/uL (0.0-0.2); BASO % 0.7 % (0.0-1.0); EOS # 0.3 10^3/uL (0.0-0.50); EOS % 3.1 % (0.0-3.0); HEMATOCRIT 42.9 % (42.0-52.0); HEMOGLOBIN 14.8 g/dl (13.5-17.5); IMMATURE GRANULOCYTE % 0.7 % (0-3.0); LYMPH # 2.9 10^3/uL (1.5-4.5); LYMPH % 26.6 % (24.0-44.0); MEAN CORPUSCULAR HEMOGLOBIN 29.7 pg (27.0-33.0); MEAN CORPUSCULAR HGB CONC 34.5 g/dl (32.0-36.5); MEAN CORPUSCULAR VOLUME 86.1 fl (80.0-96.0); MONO # 0.9 10^3/uL (0.0-0.8); MONO % 8.3 % (0.0-5.0); NEUTROPHILS # 6.5 10^3/uL (1.8-7.7); NEUTROPHILS % 60.6 % (36.0-66.0); PLATELET COUNT, AUTOMATED 219 10^3/uL (150-450); RED BLOOD COUNT 4.98 10^6/uL (4.30-6.10); RED CELL DISTRIBUTION WIDTH 12.8 % (11.5-14.5); WHITE BLOOD COUNT 10.8 10^3/uL (4.0-10.0)
[2017-08-06 11:58] LABS: ANION GAP 6 MEQ/L (8-16); BLOOD UREA NITROGEN 15 MG/DL (7-18); CALCIUM LEVEL 8.9 MG/DL (8.5-10.1); CARBON DIOXIDE LEVEL 27 MEQ/L (21-32); CHLORIDE LEVEL 107 MEQ/L (98-107); CREATININE FOR GFR 1.29 MG/DL (0.70-1.30); GLOMERULAR FILTRATION RATE > 60.0 (>56); GLUCOSE, FASTING 216 MG/DL (70-100); POTASSIUM SERUM 4.3 MEQ/L (3.5-5.1); SODIUM LEVEL 140 MEQ/L (136-145)
[2017-08-06 12:30] LABS: CREATININE, URINE 90.5 MG/DL; MALB URINE SIEMENS 45.9 MG/L; MAU/CREAT RATIO 50.7 MCG/MG (0.0-30.0)
[2017-08-06 12:56] LABS: ESTIMATED AVERAGE GLUCOSE 197 MG/DL (60-110); HEMOGLOBIN A1c 8.5 %
== END ==
LOC: M SFHCPLAZ 10:30
DX: F20.9 Schizophrenia, unspecified (principal); E11.65 Type 2 diabetes mellitus with hyperglycemia
CPT/HCPCS: 83036

== ENCOUNTER → 2017-08-31 | Outpatient (CLI) | payer MEDICARE, MEDICAID | LOC: M SLEEP 19:49 | DX: G47.33 Obstructive sleep apnea (adult) (pediatric) (principal) | CPT/HCPCS: 95811 ==

== ENCOUNTER → 2017-09-11 | Outpatient (CLI) | payer MEDICARE, MEDICAID | LOC: M PAIN 09:15 | DX: G89.29 Other chronic pain (principal); M79.1 Myalgia; M51.17 Intervertebral disc disorders with radiculopathy, lumbosacral region; M47.816 Spondylosis without myelopathy or radiculopathy, lumbar region; M47.817 Spondylosis without myelopathy or radiculopathy, lumbosacral region; F20.9 Schizophrenia, unspecified; E11.42 Type 2 diabetes mellitus with diabetic polyneuropathy; E89.0 Postprocedural hypothyroidism; E78.00 Pure hypercholesterolemia, unspecified; F17.210 Nicotine dependence, cigarettes, uncomplicated; Z79.84 Long term (current) use of oral hypoglycemic drugs; Z79.82 Long term (current) use of aspirin; Z79.899 Other long term (current) drug therapy | CPT/HCPCS: G0463 ==

== ENCOUNTER → 2018-02-02 | Outpatient (REF) | payer MEDICARE, MEDICAID | LOC: M SFHCPLAZ 08:40 | DX: E11.65 Type 2 diabetes mellitus with hyperglycemia (principal); Z53.8 Procedure and treatment not carried out for other reasons ==

== ENCOUNTER → 2018-03-10 | Outpatient (REF) | payer MEDICARE, MEDICAID ==
[2018-03-10 14:03] LABS: ESTIMATED AVERAGE GLUCOSE 154 MG/DL (60-110)
== END ==
LOC: M SFHCPLAZ 09:03
DX: E11.65 Type 2 diabetes mellitus with hyperglycemia (principal)
CPT/HCPCS: 83036

== ENCOUNTER → 2018-06-09 | Outpatient (REF) | payer MEDICARE, MEDICAID ==
[~2018-06-09] MED LIST changes: +ATOR1TAB21 PO; +BACL10TA2 PO; -BUPIVACAINE HCL 0.25% 30 ML VIAL As Ordered ONE; +FLUTISP; +GABA600T4 PO; -ISOVUE-M 300 61% 15ML VIAL (Q9967) As Ordered ONE; +LEVO75TA4 PO; -LIDOCAINE 1% SDV INJ 30 ML VIAL As Ordered ONE; +LISI-542 PO; +METF10004 PO; +OLAN5TAB PO; +PROAAER10 INH; +TOUJ1.2I SC; +TRAM50TA2 PO; +TRAZ-163 PO; -TRIAMCINOLONE ACETONIDE SUSP 40 MG/ML VIAL (J3301) As Ordered ONE; +VENL37.598 PO; -diazePAM 5 MG TAB As Ordered ONE; -oxyCODONE 5MG TAB As Ordered ONE
[2018-06-09 13:47] LABS: BLOOD UREA NITROGEN 20 MG/DL (7-18); CALCIUM LEVEL 8.7 MG/DL (8.5-10.1); CARBON DIOXIDE LEVEL 26 MEQ/L (21-32); CHLORIDE LEVEL 104 MEQ/L (98-107); GLOMERULAR FILTRATION RATE > 60.0 (>56); GLUCOSE, FASTING 105 MG/DL (70-100); POTASSIUM SERUM 4.5 MEQ/L (3.5-5.1); SODIUM LEVEL 139 MEQ/L (136-145)
[2018-06-09 14:16] LABS: HEMOGLOBIN A1c 6.9 %
== END ==
LOC: M LABDRAWP 11:50
PROVIDERS: ATTEND Dietitian, Registered Nutrition, Metabolic
DX: Z51.81 Encounter for therapeutic drug level monitoring (principal); Z79.899 Other long term (current) drug therapy; E11.65 Type 2 diabetes mellitus with hyperglycemia

== ENCOUNTER → 2018-06-16 | Outpatient (CLI) | payer MEDICARE, MEDICAID ==
--- NOTE | 2018-07-02 02:03 | ECWPNPC ---
PATIENT NAME: JESSICA MURRAY : 1960 GENDER: MALE VISIT DATE: 06/16/2018 DISCHARGE DATE: 06/16/18 1119 VISIT LOCKED DATE TIME: PHYSICIAN: VAN DIMAS RESOURCE: VAN DIMAS REASON FOR APPOINTMENT 1. LOW BACK PAIN KEEP APPT LONG. FORMER SW PT. HISTORY OF PRESENT ILLNESS HISTORY OF PRESENT ILLNESS: HERE FOR 6 MONTH F/U OF CHRONIC LOW BACK PAIN.RATING LBP /10.FINDS CURRENT CHRONIC PAIN MEDICINE TRAMADOL AND BACLOFEN EFFECTIVE AT REDUCING PAIN AND KEEPING HIM FUNCTIONAL. PAIN THE PATIENT DESCRIBES THE PAIN... FALL RISK SCREENING: SCREENING : NO FALLS IN THE PAST YEAR. CURRENT MEDICATIONS TAKING CHANTIX CONTINUING MONTH EVON 1 MG TABLET 1 TABLET ORALLY TWICE A DAY, NOTES: HAS NOT STARTED YET TAKING AEROCHAMBER W/FLOWSIGNAL - MISCELLANEOUS DIRECTED USE WITH ALBUTEROL AND ADVAIR DIRECTED. DX J44.1 TAKING LEVOTHYROXINE SODIUM 75 MCG TABLET 1 TABLET ON AN EMPTY STOMACH IN THE MORNING ORALLY ONCE A DAY TAKING GABAPENTIN 300 MG CAPSULE 2 TABLET ORALLY THREE TIMES A DAY TAKING AQUAPHOR - OINTMENT DIRECTED EXTERNALLY BID TAKING ZYPREXA 5 MG TABLET 1 TABLET ORALLY AT BEDTIME TAKING PROAIR HFA 108 (90 BASE) MCG/ACT AEROSOL SOLUTION 2 PUFFS NEEDED INHALATION EVERY 4 HRS TAKING ADVAIR HFA 115-21 MCG/ACT AEROSOL 2 PUFFS INHALATION TWICE A DAY TAKING BACLOFEN 10 MG TABLET 1 TABLET WITH FOOD OR MILK ORALLY THREE TIMES A DAY TAKING VENLAFAXINE HCL ER 75 MG TABLET EXTENDED RELEASE 24 HOUR 1 CAPSULE WITH FOOD ORALLY ONCE A DAY TAKING ATORVASTATIN CALCIUM 20 MG TABLET 1 TABLET ORALLY ONCE A DAY TAKING LISINOPRIL 2.5 MG TABLET 1 TABLET ORALLY ONCE A DAY TAKING TERBINAFINE HCL 250 MG TABLET 1 TABLET ORALLY ONCE A DAY TAKING KETOCONAZOLE 2 % CREAM 1 APPLICATION TO BOTH FEET EXTERNALLY TWICE DAILY TAKING METFORMIN HCL 500 MG TABLET 2 TABS ORALLY BEFORE BREAKFAST AND DINNER TAKING JARDIANCE 25 MG TABLET 1 TABLET ORALLY ONCE A DAY TAKING ASPIR-81 81 MG TABLET DELAYED RELEASE 1 TABLET ORALLY ONCE A DAY TAKING TRAMADOL HCL 50 MG TABLET 1 TABLET NEEDED ORALLY TWICE DAILY NEEDED FOR SEVERE PAIN. MDD: 2. CODE D TAKING TRAZODONE HCL 100 MG TABLET 1 TABLET AT BEDTIME ORALLY DAILY AT BEDTIME TAKING TRAZODONE HCL 100 MG TABLET 1 TABLET AT BEDTIME ORALLY BID TAKING PEN NEEDLES 31G X 5 MM MISCELLANEOUS DIRECTED SUBCUTANEOUSLY TWICE DAILY WITH INSULIN. DX: Z79.4 NOT-TAKING FLUTICASONE PROPIONATE 50 MCG/ACT SUSPENSION 1 SPRAY IN EACH NOSTRIL NASALLY DAILY BEFORE BEDTIME UNKNOWN CHANTIX STARTING MONTH EVON 0.5 MG X 11 & 1 MG X 42 TABLET DIRECTED ORALLY DIRECTED UNKNOWN PEN NEEDLES 1/2" 29G X 12MM MISCELLANEOUS DIRECTED SUBCUTANEOUSLY DAILY. DX: Z79.4 UNKNOWN TERBINAFINE HCL 250 MG TABLET 1 TABLET ORALLY ONCE A DAY, NOTES: TAKE 1 TAB DAILY FOR ONYCHOMYCOSIS (TOENAIL FUNGUS) UNKNOWN TRIAMCINOLONE ACETONIDE 0.1 % OINTMENT 1 APPLICATION TO AFFECTED AREA EXTERNALLY TWICE A DAY UNKNOWN MAY HAVE - - ONE TOUCH VERIO STIPS SUBCUTANEOUSLY THREE TIMES DAILY BEFORE MEALS. DX: Z79.4 UNKNOWN FLUOCINONIDE 0.05 % OINTMENT DIRECTED EXTERNALLY BID, NOTES: APPLY TWICE DAILY TO THICKENED AND CRACKING AREAS OF HANDS AND GREAT TOES TWICE DAILYI FOR 14 DAYS. UNKNOWN LAC-HYDRIN 12 % LOTION 2 GRAM, 2 PEA-SIZED AMOUNT, FOR THE BOTTOM OF EACH FOOT APPLICATION TO AFFECTED AREA EXTERNALLY TWICE A DAY UNKNOWN BLOOD GLUCOSE TEST - STRIP DIRECTED IN VITRO TWICE DAILY BEFORE BREAKFAST AND DINNER. DX Z79.4 UNKNOWN LANCET DEVICE - MISCELLANEOUS DIRECTED CHECK ON SIDE OF FINGER BEFORE BREAKFAST AND DINNER. DX: Z79.4 UNKNOWN TOUJEO SOLOSTAR PENS 450 U/1.5ML PREFILLED PENS 26 UNITS AT BREAKFAST AND 20 UNITS AT DINNER SUBCUTANEOUSLY TWICE DAILY DIRECTED UNKNOWN CIALIS 5 MG TABLET 1/2 TABLET ORALLY ONCE A DAY UNKNOWN TRIAMCINOLONE ACETONIDE 0.025 % CREAM 1 APPLICATION TO HANDS AND RASH AREA EXTERNALLY TWICE A DAY MEDICATION LIST REVIEWED AND RECONCILED WITH THE PATIENT ALLERGIES NO[ALLERGIES VERIFIED] REVIEW OF SYSTEMS REVIEWED BY: PROVIDER: VAN TORO . CONSTITUTIONAL: ANY CHANGE IN YOUR MEDICAL CONDITION? NO . CHILLS NO . FEVER NO . INFECTION: DO YOU HAVE NEW INFECTIONS? NO . DO YOU HAVE HISTORY OF MRSA? NO . MUSCULOSKELETAL: ANY NEW PATTERNS OF PAIN OR NUMBNESS? YES MIDDLE OF BACK IS HURTING . GASTROENTEROLOGY: ANY NEW CHANGE IN BOWEL CONTROL? NO . GENITOURINARY: ANY NEW CHANGE IN BLADDER CONTROL? NO . IS THERE A CHANCE YOU COULD BE ? NO . HEMATOLOGY/LYMPH: DO YOU TAKE ANY BLOOD THINNERS? (FOR EXAMPLE- COUMADIN, PLAVIX, AGGRENOX, PLATEL, PRADAXA, OR XARELTO) NO . WHEN WAS YOUR LAST DOSE? DATE: TIME: . NEUROLOGY: HAVE YOU FALLEN IN THE PAST 12 MONTHS? NO . ANY NEW EXTREMITY NUMBNESS OR WEAKNESS? NO . CARDIOLOGY: DO YOU HAVE A PACEMAKER OR DEFIBRILLATOR? NO . RESPIRATORY: HAVE YOU BEEN SICK IN THE PAST WEEK? NO . FEVER NO . FLU LIKE SYMPTOMS? NO . COUGH NO . INTEGUMENTARY: DO YOU HAVE ANY RASHES OR OPEN SORES? NO . ALLERGIC/IMMUNO: ARE YOU ALLERGIC TO IV DYE? NO . ANY NEW ALLERGIES? NO . PSYCHIATRIC: DO YOU HAVE THOUGHTS OF HURTING YOURSELF OR SOMEONE ELSE? NO . ARE YOU ABUSED, NEGLECTED, OR IN AN UNSAFE ENVIRONMENT? NO . ENDOCRINOLOGY: ARE YOU DIABETIC? YES . OTHER: DO YOU NEED ANY PRESCRIPTIONS? NO . IF YES, PLEASE LIST: ____ . ANY NEW PROBLEMS WITH YOUR MEDICATIONS? NO . WHEN DID YOU LAST EAT? ____ . WHEN DID YOU LAST DRINK? ____ . WHAT DID YOU LAST DRINK? ____ . NAME OF PERSON DRIVING YOU HOME? ____ . DO YOU HAVE ANY OTHER QUESTIONS OR CONCERNS NO . VITAL SIGNS WT 192 LBS, HT 5' 10.5", BMI 27.16 INDEX, BP 89/54 MM HG, HR 69 /MIN, RR 18 /MIN, TEMP 97.1 F, OXYGEN SAT % 99%, NA INITIALS SC 10:32. EXAMINATION GENERAL EXAMINATION: GENERAL APPEARANCE:AWAKE,ALERT ,PLEAASANT . PSYCHAFFECT NORMAL . LUNGS:LUNG BANKS ARE CLEAR TO AUSCULTATION BILATERALLY. GOOD MOVEMENT OF AIR . HEART:S1, S2 IN A REGULAR RATE AND RHYTHM. NO SIGNIFICANT MURMURS, RUBS OR GALLOPS NOTED . ASSESSMENTS LUMBAGO WITH SCIATICA, LEFT SIDE - M54.42 TREATMENT LUMBAGO WITH SCIATICA, LEFT SIDE CONTINUE BACLOFEN TABLET, 10 MG, 1 TABLET WITH FOOD OR MILK, ORALLY, THREE TIMES A DAY CONTINUE TRAMADOL HCL TABLET, 50 MG, 1 TABLET NEEDED, ORALLY, TWICE DAILY NEEDED FOR SEVERE PAIN. MDD: 2 CODE D NOTES: ISTOP REGISTRY REVIEWED AND DEMONSTRATES COMPLLIANCE. BRINGS IN MEDICATIONS WHICH IS APPROPRIATE FOR WHAT WAS DISPENSED. RECENT URINE TOXICOLOGY REVIEWED. NO UNAUTHORIZED MEDICATIONS. NO ILLICIT SUBSTANCES AND PRESCRIBED MEDICATIONS WERE PRESENT. , RISKS AND BENEFITS OF NARCOTIC/OPIOD MEDICATIONS WERE REVIEWED WITH PATIENT - THIS INCLUDES BUT IS NOT LIMITED TO RISK OF DEPENDANCE/DEVELOPMENT OF ADDICTION, MOOD DISTURBANCE AND DEPRESSION, OSTEOPOROSIS, HORMONAL AND LABIDAL CHANGES, RESPIRATORY DEPRESSION AND . PATIENT IS ADVISED NOT TO DRIVE OR DRINK ALCOHOL WHILE ON THESE MEDICATIONS. PROCEDURE CODES FA211 ESTABILISHED PATIENT [facility] CHARGE DISPOSITION & COMMUNICATION FOLLOW UP 6 MONTHS ELECTRONICALLY SIGNED BY CORTEZ JARA ON 07/01/2018 AT 04:24 PM EDT DISCLAIMER : THIS IS A VISIT SUMMARY EXTRACTED FROM THE [employer] CHART. IT IS NOT A COPY OF THE [facility] PROGRESS NOTE. QAMAR
== END ==
LOC: M PAIN 10:30
PROVIDERS: ATTEND Nurse Practitioner Family
DX: M54.42 Lumbago with sciatica, left side (principal); G89.29 Other chronic pain; E11.9 Type 2 diabetes mellitus without complications; Z79.84 Long term (current) use of oral hypoglycemic drugs; Z79.82 Long term (current) use of aspirin; Z79.899 Other long term (current) drug therapy

== ENCOUNTER → 2018-09-07 | Outpatient (REF) | payer MEDICARE, MEDICAID ==
[2018-09-07 14:15] LABS: BILIRUBIN,TOTAL 0.5 MG/DL (0.2-1.0); CALCIUM LEVEL 9.5 MG/DL (8.5-10.1); CHOLESTEROL RISK RATIO 5.322 (<5); CREATININE FOR GFR 1.36 MG/DL (0.70-1.30); GLOMERULAR FILTRATION RATE 57.3 (>56); MAU/CREAT RATIO 97.1 MCG/MG (0.0-30.0); POTASSIUM SERUM 4.3 MEQ/L (3.5-5.1); THYROID STIMULATING HORMONE 1.02 uIU/ML (0.358-3.740); THYROXINE (T4) 8.5 UG/DL (4.5-12.0); TOTAL PROTEIN 7.4 GM/DL (6.4-8.2); TOTAL T3 140.2 NG/DL (60.0-181.0)
[2018-09-07 14:35] LABS: HEMOGLOBIN A1c 6.7 %
== END ==
LOC: M SFHCPLAZ 11:35
PROVIDERS: ATTEND Dietitian, Registered Nutrition, Metabolic
DX: E11.42 Type 2 diabetes mellitus with diabetic polyneuropathy (principal); E03.9 Hypothyroidism, unspecified

== ENCOUNTER → 2018-12-01 | Outpatient (REF) | payer MEDICARE, MEDICAID ==
[2018-12-01 13:43] LABS: CREATININE FOR GFR 1.34 MG/DL (0.70-1.30); GLOMERULAR FILTRATION RATE 58.3 (>56); POTASSIUM SERUM 4.2 MEQ/L (3.5-5.1)
[2018-12-01 14:08] LABS: CREATININE, URINE 84.7 MG/DL; MALB URINE SIEMENS 13.6 MG/L
[2018-12-01 14:14] LABS: HEMOGLOBIN A1c 7.5 %
== END ==
LOC: M SFHCPLAZ 08:57
PROVIDERS: ATTEND Family Medicine
DX: E11.42 Type 2 diabetes mellitus with diabetic polyneuropathy (principal)

== ENCOUNTER → 2018-12-17 | Outpatient (CLI) | payer MEDICARE, MEDICAID ==
--- NOTE | 2018-12-31 03:02 | ECWPNPC ---
PATIENT NAME: JESSICA MURRAY : 1960 GENDER: MALE VISIT DATE: 12/17/2018 DISCHARGE DATE: 12/17/18934 VISIT LOCKED DATE TIME: PHYSICIAN: VAN DIMAS RESOURCE: VAN DIMAS DISCLAIMER : THIS IS A VISIT SUMMARY EXTRACTED FROM THE [facility] PDF CHART. IT IS NOT A COPY OF THE [facility] PDF PROGRESS NOTE. MTDD
== END ==
LOC: M PAIN 08:45
PROVIDERS: ATTEND Nurse Practitioner Family
DX: M54.42 Lumbago with sciatica, left side (principal); G89.29 Other chronic pain; Z86.59 Personal history of other mental and behavioral disorders; E11.42 Type 2 diabetes mellitus with diabetic polyneuropathy; E03.9 Hypothyroidism, unspecified; E78.00 Pure hypercholesterolemia, unspecified; F17.210 Nicotine dependence, cigarettes, uncomplicated; Z79.82 Long term (current) use of aspirin; Z79.4 Long term (current) use of insulin; Z79.899 Other long term (current) drug therapy

== ENCOUNTER → 2019-01-26 | Outpatient (CLI) | payer MEDICARE ==
--- NOTE | 2019-01-27 00:33 | REP ---
Clinical: Pain. Trauma. Technique: AP, lateral, bilateral oblique views of the left foot. Findings: Nondisplaced fracture of the first toe proximal phalanx noted. Underlying age-related degenerative changes. Impression: Nondisplaced fracture of the first toe proximal phalanx. Electronically Signed by Jf aFye MD 01/27/2019 12:25 A
== END ==
LOC: M ADAMS 13:01
PROVIDERS: ATTEND Physician Assistant
DX: S92.405A Nondisplaced unspecified fracture of left great toe, initial encounter for closed fracture (principal); X58.XXXA Exposure to other specified factors, initial encounter; Y92.9 Unspecified place or not applicable

== ENCOUNTER → 2019-05-05 | Outpatient (REF) | payer MEDICARE, MEDICAID ==
[~2019-05-05] MED LIST changes: -TRAZ-163 PO; +TRAZ-257 PO
[2019-05-05 13:38] LABS: BASO # 0.1 10^3/uL (0.0-0.2); BASO % 0.9 % (0.0-1.0); EOS # 0.3 10^3/uL (0.0-0.5); EOS % 2.5 % (0.0-3.0); HEMATOCRIT 45.8 % (42.0-52.0); HEMOGLOBIN 14.9 g/dl (13.5-17.5); LYMPH # 3.4 10^3/uL (1.5-5.0); LYMPH % 26.6 % (24.0-44.0); MEAN CORPUSCULAR HEMOGLOBIN 29.2 pg (27.0-33.0); MEAN CORPUSCULAR HGB CONC 32.5 g/dl (32.0-36.5); MEAN CORPUSCULAR VOLUME 89.8 fl (80.0-96.0); MONO # 1.1 10^3/uL (0.0-0.8); MONO % 8.6 % (0.0-5.0); NEUTROPHILS # 7.7 10^3/uL (1.5-8.5); PLATELET COUNT, AUTOMATED 294 10^3/uL (150-450); WHITE BLOOD COUNT 12.6 10^3/uL (4.0-10.0)
[2019-05-05 13:52] LABS: HEMOGLOBIN A1c 7.2 %
[2019-05-05 14:10] LABS: ALBUMIN 3.6 GM/DL (3.2-5.2); BILIRUBIN,TOTAL 0.4 MG/DL (0.2-1.0); CALCIUM LEVEL 9.2 MG/DL (8.5-10.1); CHOLESTEROL RISK RATIO 3.785 (<5); CREATININE FOR GFR 1.43 MG/DL (0.70-1.30); GLOMERULAR FILTRATION RATE 53.9 (>56); POTASSIUM SERUM 4.4 MEQ/L (3.5-5.1); TOTAL PROTEIN 7.4 GM/DL (6.4-8.2)
[2019-05-05 14:15] LABS: MALB URINE SIEMENS 50.3 MG/L; MAU/CREAT RATIO 48.3 MCG/MG (0.0-30.0)
== END ==
LOC: M SFHCPLAZ 11:34
PROVIDERS: ATTEND Physician Assistant Medical
DX: E11.42 Type 2 diabetes mellitus with diabetic polyneuropathy (principal); Z13.220 Encounter for screening for lipoid disorders; F17.200 Nicotine dependence, unspecified, uncomplicated
CPT/HCPCS: 36415; 80053; 80061; 82043; 83036; 85025; G0463

== ENCOUNTER → 2019-08-04 | Outpatient (REF) | payer MEDICARE, MEDICAID ==
[2019-08-04 11:05] LABS: ALBUMIN 3.6 GM/DL (3.2-5.2); BILIRUBIN,TOTAL 0.6 MG/DL (0.2-1.0); CALCIUM LEVEL 9.2 MG/DL (8.5-10.1); CREATININE FOR GFR 1.35 MG/DL (0.70-1.30); GLOMERULAR FILTRATION RATE 57.6 (>56); POTASSIUM SERUM 4.1 MEQ/L (3.5-5.1); TOTAL PROTEIN 7.5 GM/DL (6.4-8.2)
[2019-08-04 11:16] LABS: HEMOGLOBIN A1c 6.9 %
== END ==
LOC: M SFHCPLAZ 08:14
PROVIDERS: ATTEND Physician Assistant Medical
DX: E11.42 Type 2 diabetes mellitus with diabetic polyneuropathy (principal); N18.3 Chronic kidney disease, stage 3 (moderate)
CPT/HCPCS: 80053; 83036; G0463

== ENCOUNTER → 2019-10-31 | Outpatient (CLI) | payer MEDICARE, MEDICAID ==
[~2019-10-31] MED LIST changes: +ASPI-161 PO; +JARD1TAB PO; +LISI2.5T2 PO; +METF-839 PO; +OXYC10TA12 PO; +PATIENT COMMENT
== END ==
LOC: M LABSMTC 12:25
PROVIDERS: ATTEND Pediatrics
DX: Z11.59 Encounter for screening for other viral diseases (principal); Z20.828 Contact with and (suspected) exposure to other viral communicable diseases

== ENCOUNTER 2020-02-06 23:51 | Inpatient (IN) | payer MEDICARE, MEDICAID ==
[~2020-02-06] VITALS: Ht 177.8 cm; Wt 73.3 kg
[~2020-02-06 23:51] MED LIST changes: -ASPI-161 PO; -JARD1TAB PO; -LISI2.5T2 PO; -METF-839 PO; -OXYC10TA12 PO; -PATIENT COMMENT
[2020-02-07] MEDS ORDERED: NS 1,000 ML IV ONE ×2 (00:15→02:00)
[2020-02-07 01:28] LABS: BASO # 0.1 10^3/uL (0.0-0.2); BASO % 0.4 % (0.0-1.0); EOS % 0.1 % (0.0-3.0); HEMATOCRIT 49.6 % (42.0-52.0); HEMOGLOBIN 16.3 g/dl (13.5-17.5); LYMPH # 1.2 10^3/uL (1.5-5.0); LYMPH % 6.2 % (24.0-44.0); MEAN CORPUSCULAR HEMOGLOBIN 28.6 pg (27.0-33.0); MEAN CORPUSCULAR HGB CONC 32.9 g/dl (32.0-36.5); MONO # 1.1 10^3/uL (0.0-0.8); MONO % 5.5 % (0.0-5.0); NEUTROPHILS # 17.3 10^3/uL (1.5-8.5); NEUTROPHILS % 86.8 % (36.0-66.0); PLATELET COUNT, AUTOMATED 386 10^3/uL (150-450); WHITE BLOOD COUNT 19.9 10^3/uL (4.0-10.0)
[2020-02-07 01:40] LABS: OSMOLALITY SERUM 296 MOSM/KG (275-295)
[2020-02-07 01:53] LABS: ALBUMIN 2.9 GM/DL (3.2-5.2); ALT/SGPT 13 U/L (12-78); BILIRUBIN,DIRECT 0.1 MG/DL (0.0-0.2); BILIRUBIN,TOTAL 0.7 MG/DL (0.2-1.0); BLOOD UREA NITROGEN 28 MG/DL (7-18); CALCIUM LEVEL 7.4 MG/DL (8.8-10.2); CARBON DIOXIDE LEVEL 13 MEQ/L (21-32); CHLORIDE LEVEL 111 MEQ/L (98-107); CPK CREATINE PHOSPHOKINASE 130 U/L (39-308); CREATININE FOR GFR 2.07 MG/DL (0.70-1.30); ETHYL ALCOHOL (ETHANOL) < 0.003 % (0.000-0.010); GLUCOSE, FASTING 198 MG/DL (70-100); MB/CK RELATIVE INDEX 2.31 (< OR =4); SODIUM LEVEL 137 MEQ/L (136-145); TOTAL PROTEIN 6.8 GM/DL (6.4-8.2); TROPONIN I < 0.02 NG/ML (< 0.10)
[2020-02-07] MEDS ORDERED: POTASSIUM CHLORIDE 10 MEQ SR TABLET PO ONE (02:00)
[2020-02-07] MEDS ORDERED: ONDANSETRON 4MG/2ML VIAL IV ONE (02:30)
--- NOTE | 2020-02-07 02:36 | REPVR ---
PROCEDURE INFORMATION: Exam: CT Cervical Spine Without Contrast Exam date and time: 02/07/2020 2:10 AM Age: 60 years old Clinical indication: Injury or trauma; Fall; Blunt trauma TECHNIQUE: Imaging protocol: Computed tomography images of the cervical spine without contrast. Radiation optimization: All CT scans at this facility use at least one of these dose optimization techniques: automated exposure control; mA and/or kV adjustment per patient size (includes targeted exams where dose is matched to clinical indication); or iterative reconstruction. COMPARISON: No relevant prior studies available. FINDINGS: Bones/joints: No traumatic segmental malalignment of cervical spine or craniocervical junction. Vertebral body height is maintained at all levels. No acute fracture. No destructive or blastic cervical spine osseous lesion. Discs/Spinal canal/Neural foramina: Intervertebral disc height is decreased at multiple levels, particularly C5-C6 and C6-C7, with typical degenerative pattern and associated endplate, articular pillar and uncovertebral spurs. Moderately severe osseous neural foraminal stenoses left C5-C6 and bilateral C6-C7 Soft tissues: Soft tissues show no concerning abnormality or asymmetry. Lungs: No concerning abnormality of the imaged lung apices. IMPRESSION: 1. No acute fracture or traumatic subluxation of the cervical spine. 2. Multilevel degenerative disc and articular pillar arthropathy. Electronically signed by: Sammy Mark On 02/07/2020 02:35:56 AM
--- NOTE | 2020-02-07 02:39 | REPVR ---
PROCEDURE INFORMATION: Exam: CT Abdomen And Pelvis Without Contrast Exam date and time: 02/07/2020 2:10 AM Age: 60 years old Clinical indication: Injury or trauma; Fall; Blunt; Rlq TECHNIQUE: Imaging protocol: Computed tomography of the abdomen and pelvis without contrast. Radiation optimization: All CT scans at this facility use at least one of these dose optimization techniques: automated exposure control; mA and/or kV adjustment per patient size (includes targeted exams where dose is matched to clinical indication); or iterative reconstruction. COMPARISON: No relevant prior studies available. FINDINGS: Mediastinal space: Small hiatal hernia is present. Liver: Noncontrast liver shows no obvious lesion. Gallbladder and bile ducts: Gallbladder is present and shows no evidence of gallstone. Pancreas: Noncontrast pancreas shows no obvious mass or adjacent fluid. Spleen: Noncontrast spleen shows no obvious focal deformity. Adrenal glands: Adrenal glands are normal in appearance. Kidneys and ureters: Kidneys show no stone or hydronephrosis. Stomach and bowel: Small bowel is dilated up to 3.8 cm, and fluid-filled. Proximal colon is also dilated. In the mid ascending colon there is a mass measuring 7 x 5 cm cross-sectional consistent with primary malignancy, measuring 5 cm in length. Coronal images demonstrate typical "apple-core" morphology. Distal to the mass, the colon is decompressed. Appendix: Appendix is fluid-filled and dilated, likely secondary to the proximal ascending colonic mass. No inflammation. Intraperitoneal space: . No free air. Vasculature: Atherosclerotic change present in the aorta, without aneurysm. Lymph nodes: Small, nonspecific mesenteric lymph nodes are present. Urinary bladder: Urinary bladder appears normal. Reproductive: Dystrophic prostate calcifications are noted. Bones/joints: No acute pelvic fracture or malalignment. No acute lumbar spine fracture. Degenerative changes are seen in the lumbar spine with disc height loss, endplate osteophytes and hypertrophic facet arthropathy. Soft tissues: No intra-abdominal hematoma. No pelvic hematoma. Other findings: Limited trauma evaluation without IV contrast. IMPRESSION: 1. No CT evidence of acute abdominal or pelvic trauma. 2. 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 Electronically signed by: Sammy Mark On 02/07/2020 02:39:23 AM
--- NOTE | 2020-02-07 02:39 | REPVR ---
PROCEDURE INFORMATION: Exam: CT Lumbar Spine Without Contrast Exam date and time: 02/07/2020 2:10 AM Age: 60 years old Clinical indication: Injury or trauma; Fall; Blunt trauma (contusions or hematomas) TECHNIQUE: Imaging protocol: Computed tomography images of the lumbar spine without contrast. Radiation optimization: All CT scans at this facility use at least one of these dose optimization techniques: automated exposure control; mA and/or kV adjustment per patient size (includes targeted exams where dose is matched to clinical indication); or iterative reconstruction. COMPARISON: MRI-Spine, L.S. without con 12/02/2016 7:36 AM FINDINGS: Vertebrae: Transitional vertebral segment is present at the lumbosacral junction. No segmental lumbar vertebral malalignment. Vertebral body height and morphology is maintained. No acute fracture or destructive process. Discs/Spinal canal/Neural foramina: Intervertebral disc height is maintained for age. Vasculature: No dilatation of the imaged distal abdominal aorta. Other findings: No significant abnormality of the imaged retroperitoneum. IMPRESSION: No fracture or other acute abnormality involving the lumbar spine. Electronically signed by: Sammy Mark On 02/07/2020 02:40:08 AM
--- NOTE | 2020-02-07 02:41 | REPVR ---
PROCEDURE INFORMATION: Exam: CT Chest Without Contrast Exam date and time: 02/07/2020 2:10 AM Age: 60 years old Clinical indication: Injury or trauma; Fall; Blunt trauma (contusions or hematomas) TECHNIQUE: Imaging protocol: Computed tomography of the chest without contrast. Radiation optimization: All CT scans at this facility use at least one of these dose optimization techniques: automated exposure control; mA and/or kV adjustment per patient size (includes targeted exams where dose is matched to clinical indication); or iterative reconstruction. COMPARISON: CR Chest, 2 view PA, Lat 11/14/2016 11:48 AM FINDINGS: Lungs: No evidence of lung contusion, aspiration or concerning lung mass. Pleural space: No hemothorax or pneumothorax. Heart: No overt cardiac enlargement or abnormal volume of pericardial fluid. . Mediastinal space: No mediastinal hematoma. Aorta: No abnormal dilatation of the thoracic aorta. Lymph nodes: No enlarged mediastinal lymph nodes. Stomach and bowel: Esophagus is distended with fluid secondary to the small bowel obstruction and gastric distension. Bones/joints: No acute displaced fractures involving ribs, sternum, manubrium, thoracic spine or shoulder girdle. Limitations: Limited trauma evaluation without IV contrast IMPRESSION: 1. No CT evidence of acute thoracic trauma. 2. No CT evidence of intrathoracic metastatic disease related to the patient's ascending colon neoplasm Electronically signed by: Sammy Mark On 02/07/2020 02:41:54 AM
--- NOTE | 2020-02-07 02:43 | REPVR ---
PROCEDURE INFORMATION: Exam: CT Thoracic Spine Without Contrast Exam date and time: 02/07/2020 2:10 AM Age: 60 years old Clinical indication: Injury or trauma; Fall; Blunt trauma (contusions or hematomas) TECHNIQUE: Imaging protocol: Computed tomography images of the thoracic spine without contrast. Radiation optimization: All CT scans at this facility use at least one of these dose optimization techniques: automated exposure control; mA and/or kV adjustment per patient size (includes targeted exams where dose is matched to clinical indication); or iterative reconstruction. COMPARISON: No relevant prior studies available. FINDINGS: Vertebrae: No segmental malalignment of the vertebral bodies. Vertebral body height is maintained. No fracture or destructive process. Discs/Spinal canal/Neural foramina: Multi-level, age-related thoracic degenerative disc disease is present. Soft tissues: No paraspinous soft tissue mass or focal soft tissue edema. IMPRESSION: No fracture or other acute abnormality involving the thoracic spine. Electronically signed by: Sammy Mark On 02/07/2020 02:43:00 AM
--- NOTE | 2020-02-07 02:44 | REPVR ---
PROCEDURE INFORMATION: Exam: CT Head Without Contrast Exam date and time: 02/07/2020 2:10 AM Age: 60 years old Clinical indication: Injury or trauma; Fall; Blunt trauma (contusions or hematomas) TECHNIQUE: Imaging protocol: Computed tomography of the head without contrast. Radiation optimization: All CT scans at this facility use at least one of these dose optimization techniques: automated exposure control; mA and/or kV adjustment per patient size (includes targeted exams where dose is matched to clinical indication); or iterative reconstruction. COMPARISON: No relevant prior studies available. FINDINGS: Brain: No intracranial mass, focal mass effect or midline shift. No acute intracranial hemorrhage. Mild decreased attenuation in periventricular/centrum semiovale white matter. No focal effacement of cortical sulci to indicate acute cortical infarct. Cerebral ventricles: Prominent ventricles and CSF spaces suggest parenchymal volume loss. Bones/joints: No calvarial fracture or destructive process. Visualized globes and orbits are unremarkable aside from old left lamina papyracea fractures.. Paranasal sinuses: Visualized paranasal sinuses are unremarkable. Mastoid air cells: Mastoid air cells are normally aerated. Soft tissues: No focal extracranial soft tissue swelling. IMPRESSION: 1. No acute intracranial abnormality. 2. Atrophy and chronic microangiopathic change in supratentorial white matter. Electronically signed by: Sammy Mark On 02/07/2020 02:43:59 AM
[2020-02-07] MEDS ORDERED: PIPERACILLIN/TAZOBACTAM SOD 4.5 GM in D5W MINI-BAG PLUS 50 ML IV ONE (03:00)
[2020-02-07] MEDS ORDERED: GLUCOSE 4GM CHEW TABLET PO PRN (03:15)
[2020-02-07] MEDS ORDERED: DEXTROSE 50% 50 ML SYRINGE IV PRN (03:15)
[2020-02-07] MEDS ORDERED: GLUCAGON INJ 1MG VIAL SC PRN (03:15)
[2020-02-07] MEDS ORDERED: ONDANSETRON 4MG/2ML VIAL IV PRN (03:15)
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
[2020-02-07] MEDS ORDERED: JARD1TAB PO (04:16)
[2020-02-07] MEDS ORDERED: OXYC10TA12 PO (04:16)
[2020-02-07] MEDS ORDERED: LISI2.5T2 PO (04:16)
[2020-02-07] MEDS ORDERED: ASPI-161 PO (04:16)
[2020-02-07] MEDS ORDERED: METF-839 PO (04:16)
[2020-02-07] MEDS ORDERED: PATIENT COMMENT (04:18)
--- NOTE | 2020-02-07 04:53 | REPVR ---
PROCEDURE INFORMATION: Exam: XR Right Knee Exam date and time: 02/07/2020 4:27 AM Age: 60 years old Clinical indication: Pain; Knee; Right; Additional info: Fall contusion rule out fracture TECHNIQUE: Imaging protocol: XR Right knee. Views: 4 or more views. COMPARISON: No relevant prior studies available. FINDINGS: Bones/joints: Question of bone infarct in the distal femur. No fractures. No joint effusions. The joint space demonstrates slight narrowing of the medial compartment. Soft tissues: Normal. IMPRESSION: 1. Question of old bone infarct in the distal femur. 2. Early degenerative change of the right knee. 3. Otherwise negative right knee. No fracture. Electronically signed by: Irving Weaver On 02/07/2020 04:53:16 AM
[2020-02-07 05:05] LABS: INR 1.16; PROTHROMBIN TIME 15.1 SECONDS (12.5-14.3)
[2020-02-07 05:06] LABS: PARTIAL THROMBOPLASTIN TIME 27.5 SECONDS (24.2-38.5)
[2020-02-07 05:20] LABS: CK-MB VALUE MASS 6.2 NG/ML (<3.6); CPK CREATINE PHOSPHOKINASE 213 U/L (39-308); MAGNESIUM LEVEL 2.1 MG/DL (1.8-2.4); MB/CK RELATIVE INDEX 2.91 (< OR =4); TROPONIN I < 0.02 NG/ML (< 0.10)
[2020-02-07] MEDS: HumaLOG INSULIN (NovoLOG) PER UNIT SC SCH ×3 (06:00→18:00)
[2020-02-07] MEDS ORDERED: ALBUTEROL 90 MCG/ACT 8GM HFA INHALER INH PRN (07:15)
[2020-02-07 07:56] LABS: THYROID STIMULATING HORMONE 0.023 uIU/ML (0.358-3.740)
[2020-02-07 08:00] VITALS: BP 154/63
[2020-02-07 09:00] LABS: AMPHETAMINES LEVEL URINE NEGATIVE (NEGATIVE); BARBITURATES URINE NEGATIVE (NEGATIVE); BENZODIAZEPINES URINE NEGATIVE (NEGATIVE); CANNABINOIDS URINE POSITIVE (NEGATIVE); COCAINE METABOLITE URINE NEGATIVE (NEGATIVE); METHADONE URINE NEGATIVE (NEGATIVE); OPIATES URINE NEGATIVE (NEGATIVE); PHENCYCLIDINE URINE NEGATIVE (NEGATIVE)
[2020-02-07] MEDS: POTASSIUM CHLORIDE INJ 40 MEQ in LR 1,000 ML IV SCH ×2 (09:33→14:12)
[2020-02-07] MEDS: PIPERACILLIN/TAZOBACTAM SOD 3.375 GM in D5W MINI-BAG PLUS 50 ML IV SCH ×3 (09:33→21:54)
[2020-02-07] MEDS: LEVEMIR (INSULIN DETEMIR) 1 UNITS/0.01ML SC SCH ×2 (09:34→21:00)
[2020-02-07] MEDS: GABAPENTIN 300 MG CAP PO SCH ×2 (09:34→21:53)
--- NOTE | 2020-02-07 09:36 | ECGEPIP ---
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
[2020-02-07 10:03] LABS: TOTAL 25(OH) VITAMIN D 10.6 NG/ML (30.0-100.0)
--- NOTE | 2020-02-07 10:19 | REP ---
INDICATION: valorie. COMPARISON: CT abdomen and pelvis 02/07/2020. TECHNIQUE: Real-time sonographic evaluation of the kidneys is performed. FINDINGS: Renal cortical echogenicity pattern is normal bilaterally and contours are smooth. There is no evidence of hydronephrosis or calculus in either kidney. The right kidney measures 10.3 x 4.6 x 5.2 cm. Left renal dimensions are 10.2 x 4.7 x 5.6 cm. The urinary bladder is unremarkable. There are prominent renal pyramids bilaterally. IMPRESSION: Normal urinary tract sonography. <Electronically signed by Ravi Palencia > 02/07/20 [id number]
--- NOTE | 2020-02-07 11:46 | IPNPDOC ---
Date Seen The patient was seen on 02/07/20. Progress Note SUBJECTIVE: Patient seen and examined at bedside. NG tube in place draining clear gastric secretions. Patient states mild improvement in abdominal discomfort. Denies fevers, chills. Vomiting improved. No diarrhea, remains NPO. OBJECTIVE PHYSICAL EXAMINATION: VITAL SIGNS: please see below General: NGT in place HEENT: PERRLA, EOMI, sclerae clear Neck: supple, normal ROM, no JVD Respiratory: lungs CTAB, no wheeze, no rales, no crackles CVS: RRR, normal S1, S2, no murmurs Abdo: diffusely tender to palpation, no rigidity, no guarding. BS+ Extremities: no edema, pulses 2+ MSK: no joint deformities, normal ROM Neuro: no focal neuro deficits, moving all 4 extremities, CN2-12 intact. Strength 5/5 in all 4 extremities. No nystagmus. Psych: calm, cooperative, AAO x 3 LABORATORY DATA, IMAGING STUDIES, MICROBIOLOGY: Please see below. DVT prophylaxis ordered?: Y, SCDs, TEDs ASSESSMENT AND PLAN: 60-year-old male with a history of IDDM, hypertension, hypothyroidism and COPD, who presented to the ED with vomiting, abdominal pain and multiple episodes of syncope after diarrhea. CT of the abdomen is revealed an apple core lesion in proximal ascending colon highly suspicious for neoplasm with a high-grade partial bowel obstruction at the point of the lesion. General surgery was consulted, Dr. Cleveland is following, patient will likely require surgery on this admission. PROBLEMS: #Bowel obstruction 2/2 colon mass: NPO. NGT. IVF. Morphine. Zofran. Surgery Dr. Cleveland following. Likely OR in next few days. C/w zosyn WBC 22.2. Trend cbc. #Syncope: likely vasovagal given profound vomitus. Fall precautions. Orthostats once stable. #Lactic acidosis: resolved with IVF hydration #GIUSEPPE: hold lisinopril, metformin. Renal US. IVF. FeUrea 48%, however timing of urine sample unclear (ie pre or post hydration). Possible intrinsic renal disease. Renal US unremarkable. Monitor renal function with hydration. #Hypokalemia: K 3.0, replaced. Mg 2.1. #Hypocalcemia: ionized Ca++ 4.2. Replace with PO calcium carbonate. Vit D 10.2. TSH 0.02. #Low Vit D: Vit D level 10.2. Replace with 50,000 units qweekly. #IDDM: ISS. FSBS AC & HS. Hypoglycemia precautions. Levemir 10 units BID (home dose 30 units qdaily, 25 units qhs) while NPO. #HTN: amlodipine 2.5 mg. BP likely elevated given abdo pain. #Hypothyroid: hold synthroid, TSH 0.02. Check FT4. #COPD: albuterol prn #Schizophrenia: c/w olanzapine, venlafaxine DVT ppx: SCDs DISPOSITION: DC home once medically cleared. VS, I&O, 24H, Fishbone Vital Signs/I&O Vital Signs Date Time Temp Pulse Resp B/P (MAP) Pulse Ox O2 Delivery O2 Flow Rate FiO2 02/07/20 09:34 74 154/63 02/07/20 08:00 97.9 20 99 02/07/20 04:00 Room Air I&O- Last 24 Hours up to 6 AM 02/07/20 06:00 Intake Total 2000 ml Balance 2000 ml Laboratory Data 24H LABS Laboratory Tests 2 02/07/20 00:20: Immature Granulocyte % (Auto) 1.0, Neutrophils (%) (Auto) 86.8H, Lymphocytes (%) (Auto) 6.2L, Monocytes (%) (Auto) 5.5H, Eosinophils (%) (Auto) 0.1, Basophils (%) (Auto) 0.4, Neutrophils # (Auto) 17.3H, Lymphocytes # (Auto) 1.2L, Monocytes # (Auto) 1.1H, Eosinophils # (Auto) 0.0, Basophils # (Auto) 0.1, Nucleated Red Blood Cells % (auto) 0.0, Anion Gap 13, Glomerular Filtration Rate 35.0L, Osmolality 296H, Lactic Acid Level 5.6*H, Calcium Level 7.4L, Total Bilirubin 0.7, Direct Bilirubin 0.1, Aspartate Amino Transf (AST/SGOT) 22, Alanine Aminotransferase (ALT/SGPT) 13, Alkaline Phosphatase 114, Total Creatine Kinase 130, Creatine Kinase MB 3.0, Creatine Kinase MB Relative Index 2.31, Troponin I < 0.02, Total Protein 6.8, Albumin 2.9L, Albumin/Globulin Ratio 0.7, Ethyl Alcohol Level < 0.003 02/07/20 04:34: Whole Blood Ionized Calcium 4.2L 02/07/20 04:41: Lactic Acid Level 2.0, Total Creatine Kinase 213, Creatine Kinase MB 6.2H, Creatine Kinase MB Relative Index 2.91, Troponin I < 0.02, Prothrombin Time 15.1H, Prothromb Time International Ratio 1.16, Activated Partial Thromboplast Time 27.5, Magnesium Level 2.1, 25-Hydroxy Vitamin D Total 10.6L, Thyroid Stimulating Hormone (TSH) 0.023L 02/07/20 06:55: Bedside Glucose (Misc Panel) 184H 02/07/20 07:47: Urine Color YELLOW, Urine Appearance HAZY, Urine pH 5.0, Urine Specific [place] 1.012, Urine Protein 1+H, Urine Glucose (UA) 3+H, Urine Ketones NEGATIVE, Urine Blood 2+H, Urine Nitrite NEGATIVE, Urine Bilirubin NEGATIVE, Urine Urobilinogen 0.2, Urine Leukocyte Esterase NEGATIVE, Urine WBC (Auto) 1, Urine RBC (Auto) 1, Urine Hyaline Casts (Auto) 4, Urine Bacteria (Auto) NEGATIVE, Urine Squamous Epithelial Cells 0, Urine Sperm (Auto) SMALLH, Urine Random Creatinine 104.0, Urine Random Urea Nitrogen 681, Urine Opiates Screen NEGATIVE, Urine Methadone Screen NEGATIVE, Urine Barbiturates Screen NEGATIVE, Urine Phencyclidine Screen NEGATIVE, Urine Amphetamines Screen NEGATIVE, Urine Benzodiazepines Screen NEGATIVE, Urine Cocaine Metabolite Screen NEGATIVE, Urine Cannabinoids Screen POSITIVEH CBC/BMP Laboratory Tests 02/07/20 00:20 FRANK DANIELS MD Feb 07, 2020 11:46
[2020-02-07 12:03] VITALS: BP 157/77
[2020-02-07] MEDS: VITAMIN D 50,000 UNITS CAPSULE (ERGOCALCIFEROL 1.25MG) PO SCH (12:19)
[2020-02-07 12:29] LABS: BASO # 0.1 10^3/uL (0.0-0.2); BASO % 0.3 % (0.0-1.0); HEMATOCRIT 43.3 % (42.0-52.0); HEMOGLOBIN 14.7 g/dl (13.5-17.5); LYMPH # 1.4 10^3/uL (1.5-5.0); LYMPH % 7.2 % (24.0-44.0); MEAN CORPUSCULAR HEMOGLOBIN 28.9 pg (27.0-33.0); MEAN CORPUSCULAR HGB CONC 33.9 g/dl (32.0-36.5); MEAN CORPUSCULAR VOLUME 85.2 fl (80.0-96.0); MONO # 1.5 10^3/uL (0.0-0.8); MONO % 7.8 % (0.0-5.0); NEUTROPHILS # 16.5 10^3/uL (1.5-8.5); NEUTROPHILS % 84.3 % (36.0-66.0); PLATELET COUNT, AUTOMATED 360 10^3/uL (150-450); RED BLOOD COUNT 5.08 10^6/uL (4.30-6.10); WHITE BLOOD COUNT 19.6 10^3/uL (4.0-10.0)
[2020-02-07 12:43] LABS: HEMOGLOBIN A1c 6.2 %
[2020-02-07 13:30] LABS: ALBUMIN 3.3 GM/DL (3.2-5.2); BILIRUBIN,TOTAL 0.9 MG/DL (0.2-1.0); CALCIUM LEVEL 9.4 MG/DL (8.8-10.2); CREATININE FOR GFR 1.89 MG/DL (0.70-1.30); GLOMERULAR FILTRATION RATE 38.9 (>49); MAGNESIUM LEVEL 2.5 MG/DL (1.8-2.4); POTASSIUM SERUM 4.6 MEQ/L (3.5-5.1); TOTAL PROTEIN 7.8 GM/DL (6.4-8.2)
[2020-02-07 14:00] VITALS: BP 122/59
[2020-02-07] MEDS: CALCIUM CARB SUSP 1250MG/5ML UNIT DOSE CUP PO SCH ×2 (16:33→21:53)
[2020-02-07] MEDS: OLANZapine 5 MG TAB PO SCH (21:53)
[2020-02-07 22:00] VITALS: BP 126/60
[2020-02-08] MEDS: POTASSIUM CHLORIDE INJ 40 MEQ in LR 1,000 ML IV SCH ×2 (00:46→09:22)
[2020-02-08] MEDS: PIPERACILLIN/TAZOBACTAM SOD 3.375 GM in D5W MINI-BAG PLUS 50 ML IV SCH ×4 (04:44→21:34)
[2020-02-08 06:00] VITALS: BP 148/69
[2020-02-08] MEDS: HumaLOG INSULIN (NovoLOG) PER UNIT SC SCH ×4 (06:00→17:46)
[2020-02-08 06:21] LABS: BASO # 0.1 10^3/uL (0.0-0.2); BASO % 0.5 % (0.0-1.0); EOS # 0.1 10^3/uL (0.0-0.5); EOS % 0.5 % (0.0-3.0); HEMATOCRIT 42.1 % (42.0-52.0); HEMOGLOBIN 14.2 g/dl (13.5-17.5); LYMPH # 2.1 10^3/uL (1.5-5.0); LYMPH % 13.9 % (24.0-44.0); MEAN CORPUSCULAR HEMOGLOBIN 29.3 pg (27.0-33.0); MEAN CORPUSCULAR HGB CONC 33.7 g/dl (32.0-36.5); MEAN CORPUSCULAR VOLUME 86.8 fl (80.0-96.0); MONO # 1.5 10^3/uL (0.0-0.8); MONO % 10.1 % (0.0-5.0); NEUTROPHILS # 11.2 10^3/uL (1.5-8.5); NEUTROPHILS % 74.6 % (36.0-66.0); PLATELET COUNT, AUTOMATED 358 10^3/uL (150-450); RED BLOOD COUNT 4.85 10^6/uL (4.30-6.10)
[2020-02-08 06:45] LABS: BILIRUBIN,TOTAL 0.7 MG/DL (0.2-1.0); CALCIUM LEVEL 8.8 MG/DL (8.8-10.2); CREATININE FOR GFR 1.53 MG/DL (0.70-1.30); GLOMERULAR FILTRATION RATE 49.7 (>49); MAGNESIUM LEVEL 2.4 MG/DL (1.8-2.4); POTASSIUM SERUM 4.7 MEQ/L (3.5-5.1); TOTAL PROTEIN 6.9 GM/DL (6.4-8.2)
[2020-02-08] MEDS: LEVEMIR (INSULIN DETEMIR) 1 UNITS/0.01ML SC SCH ×2 (08:51→23:17)
[2020-02-08] MEDS: GABAPENTIN 300 MG CAP PO SCH ×2 (09:21→21:33)
[2020-02-08] MEDS: CALCIUM CARB SUSP 1250MG/5ML UNIT DOSE CUP PO SCH ×3 (09:21→21:33)
[2020-02-08] MEDS: MORPHINE 2 MG/ML 1ML VIAL (J2270) IV PRN ×2 (09:23→21:34)
--- NOTE | 2020-02-08 11:12 | IPNPDOC ---
Date Seen The patient was seen on 02/08/20. Progress Note SUBJECTIVE: Patient seen and examined at bedside this morning. Reports worsening pain in the left upper quadrant. Denies fevers or chills, chest pain, sugars of breath or palpitations. No acute events. White cell count be trending down. OBJECTIVE PHYSICAL EXAMINATION: VITAL SIGNS: please see below General: NGT in place HEENT: PERRLA, EOMI, sclerae clear Neck: supple, normal ROM, no JVD Respiratory: lungs CTAB, no wheeze, no rales, no crackles CVS: RRR, normal S1, S2, no murmurs Abdo: Abdomen acutely tender to palpation in the left upper quadrant. Mild guarding. BS+ Extremities: no edema, pulses 2+ MSK: R hallux nail partially detached, dried blood. Neuro: no focal neuro deficits, moving all 4 extremities, CN2-12 intact. Strength 5/5 in all 4 extremities. No nystagmus. Psych: calm, cooperative, AAO x 3 LABORATORY DATA, IMAGING STUDIES, MICROBIOLOGY: Please see below. DVT prophylaxis ordered?: Y ASSESSMENT AND PLAN: 60-year-old male with a history of IDDM, hypertension, hypothyroidism and COPD, who presented to the ED with vomiting, abdominal pain and multiple episodes of syncope after diarrhea. CT of the abdomen is revealed an apple core lesion in proximal ascending colon highly suspicious for neoplasm with a high-grade partial bowel obstruction at the point of the lesion. General surgery was consulted, Dr. Cleveland is following, patient will likely require surgery on this admission. PROBLEMS: #Bowel obstruction 2/2 colon mass: NPO. NGT. IVF. Morphine. Zofran. Surgery Dr. Cleveland following. Likely OR in next few days. C/w zosyn WBC trending down. #Syncope: likely vasovagal given profound vomitus. Fall precautions. Orthostats once stable. #Lactic acidosis: resolved with IVF hydration #GIUSEPPE: hold lisinopril, metformin. Renal US wnl. Cr trending down.. #Hypokalemia: K 3.0, replaced. Mg 2.1. #Hypocalcemia: ionized Ca++ 4.2. Replace with PO calcium carbonate. Vit D 10.2. TSH 0.02. #Low Vit D: Vit D level 10.2. Replace with 50,000 units qweekly. #IDDM: ISS. FSBS AC & HS. Hypoglycemia precautions. Levemir 10 units BID (home dose 30 units qdaily, 25 units qhs) while NPO. #HTN: amlodipine 2.5 mg. BP likely elevated given abdo pain. #Hypothyroid: hold synthroid, TSH 0.02. FT4 1.54. #COPD: albuterol prn #R hallux nail partial detachment: podiatry consult, Dr. Pinto aware. #Schizophrenia: c/w olanzapine, venlafaxine DVT ppx: SCDs DISPOSITION: DC home once medically cleared. VS, I&O, 24H, Fishbone Vital Signs/I&O Vital Signs Date Time Temp Pulse Resp B/P (MAP) Pulse Ox O2 Delivery O2 Flow Rate FiO2 02/08/20 09:23 18 Room Air 02/08/20 09:22 60 148/69 02/08/20 06:00 97.1 95 I&O- Last 24 Hours up to 6 AM 02/08/20 06:00 Intake Total 1285 ml Output Total 2750 ml Balance -1465 ml Laboratory Data 24H LABS Laboratory Tests 2 02/07/20 12:12: Immature Granulocyte % (Auto) 0.4, Neutrophils (%) (Auto) 84.3H, Lymphocytes (%) (Auto) 7.2L, Monocytes (%) (Auto) 7.8H, Eosinophils (%) (Auto) 0.0, Basophils (%) (Auto) 0.3, Neutrophils # (Auto) 16.5H, Lymphocytes # (Auto) 1.4L, Monocytes # (Auto) 1.5H, Eosinophils # (Auto) 0.0, Basophils # (Auto) 0.1, Nucleated Red Blood Cells % (auto) 0.0, Anion Gap 9, Glomerular Filtration Rate 38.9L, Estimated Mean Plasma Glucose 131H, Hemoglobin A1c 6.2, Calcium Level 9.4#, Magnesium Level 2.5H, Total Bilirubin 0.9, Aspartate Amino Transf (AST/SGOT) 24, Alanine Aminotransferase (ALT/SGPT) 18, Alkaline Phosphatase 128H, Total Protein 7.8, Albumin 3.3, Albumin/Globulin Ratio 0.7, Free Thyroxine 1.54H 02/07/20 18:10: Bedside Glucose (Misc Panel) 114 02/07/20 21:35: Bedside Glucose (Misc Panel) 102 02/08/20 00:37: Bedside Glucose (Misc Panel) 115 02/08/20 05:55: Immature Granulocyte % (Auto) 0.4, Neutrophils (%) (Auto) 74.6H, Lymphocytes (%) (Auto) 13.9L, Monocytes (%) (Auto) 10.1H, Eosinophils (%) (Auto) 0.5, Basophils (%) (Auto) 0.5, Neutrophils # (Auto) 11.2H, Lymphocytes # (Auto) 2.1, Monocytes # (Auto) 1.5H, Eosinophils # (Auto) 0.1, Basophils # (Auto) 0.1, Nucleated Red Blood Cells % (auto) 0.0, Anion Gap 8, Glomerular Filtration Rate 49.7, Calcium Level 8.8, Magnesium Level 2.4, Total Bilirubin 0.7, Aspartate Amino Transf (AST/SGOT) 26, Alanine Aminotransferase (ALT/SGPT) 16, Alkaline Phosphatase 106, Total Protein 6.9, Albumin 3.0L, Albumin/Globulin Ratio 0.8 02/08/20 06:20: Bedside Glucose (Misc Panel) 104 CBC/BMP Laboratory Tests 02/07/20 12:12 02/08/20 05:55 FRANK DANIELS MD Feb 08, 2020 11:12
[2020-02-08] MEDS: POTASSIUM CHLORIDE INJ 20 MEQ in D5W/LR 1,000 ML IV SCH (13:20)
[2020-02-08 14:00] VITALS: BP 125/68
--- NOTE | 2020-02-08 15:53 | REP ---
INDICATION: follow colonic obtruction. COMPARISON: Comparison CT abdomen pelvis 02/07/2020.. TECHNIQUE: Two supine views of the abdomen. FINDINGS: NG tube is seen in place with its tip just entering the gastric fundus. The side hole is in the expected location of the distal esophagus. There are dilated air-filled loops of small bowel in the epigastric and central abdominal region. This pattern is similar to the CT study for bowel-gas pattern from February 07, 2020 at. There is a paucity of colonic gas and stool the findings are compatible with small bowel obstruction pattern. There is no evidence of free air. IMPRESSION: Small-bowel obstruction pattern persists. NG tube just barely in the gastric fundus. <Electronically signed by Hakeme Robles > 02/08/20 [id number]
--- NOTE | 2020-02-08 18:48 | REP ---
INDICATION: NGT advancement, bowel obstruction. COMPARISON: Earlier today FINDINGS: There are multiple dilated gas-filled small bowel loops which have increased since the prior exam. The nasogastric tube seen previously has been advanced, however, the proximal port is still seen in the region of the gastroesophageal junction. There is no evidence of free intraperitoneal air.. IMPRESSION: There is evidence of a small-bowel obstruction. The nasogastric tube has been advanced as described above. <Electronically signed by Yonathan Ng > 02/08/20 [id number]
[2020-02-08] MEDS: OLANZapine 5 MG TAB PO SCH (21:33)
[2020-02-08 22:00] VITALS: BP 134/66
[2020-02-09] MEDS: POTASSIUM CHLORIDE INJ 20 MEQ in D5W/LR 1,000 ML IV SCH (02:04)
[2020-02-09] MEDS: MORPHINE 2 MG/ML 1ML VIAL (J2270) IV PRN (04:14)
[2020-02-09] MEDS: PIPERACILLIN/TAZOBACTAM SOD 3.375 GM in D5W MINI-BAG PLUS 50 ML IV SCH ×4 (04:15→21:37)
[2020-02-09 06:00] VITALS: BP 114/62
[2020-02-09] MEDS: HumaLOG INSULIN (NovoLOG) PER UNIT SC SCH ×4 (06:00→17:21)
[2020-02-09 06:13] LABS: BASO # 0.1 10^3/uL (0.0-0.2); BASO % 0.5 % (0.0-1.0); EOS # 0.1 10^3/uL (0.0-0.5); EOS % 0.8 % (0.0-3.0); HEMATOCRIT 41.4 % (42.0-52.0); HEMOGLOBIN 13.6 g/dl (13.5-17.5); LYMPH % 13.4 % (24.0-44.0); MEAN CORPUSCULAR HEMOGLOBIN 28.6 pg (27.0-33.0); MEAN CORPUSCULAR HGB CONC 32.9 g/dl (32.0-36.5); MEAN CORPUSCULAR VOLUME 87.2 fl (80.0-96.0); MONO # 1.7 10^3/uL (0.0-0.8); MONO % 11.4 % (0.0-5.0); NEUTROPHILS % 73.4 % (36.0-66.0); PLATELET COUNT, AUTOMATED 350 10^3/uL (150-450); RED BLOOD COUNT 4.75 10^6/uL (4.30-6.10)
[2020-02-09 06:45] LABS: ALBUMIN 2.8 GM/DL (3.2-5.2); BILIRUBIN,TOTAL 0.8 MG/DL (0.2-1.0); CALCIUM LEVEL 9.1 MG/DL (8.8-10.2); CREATININE FOR GFR 1.41 MG/DL (0.70-1.30); GLOMERULAR FILTRATION RATE 54.6 (>49); MAGNESIUM LEVEL 2.2 MG/DL (1.8-2.4); POTASSIUM SERUM 4.3 MEQ/L (3.5-5.1); TOTAL PROTEIN 7.5 GM/DL (6.4-8.2)
[2020-02-09] MEDS: LEVEMIR (INSULIN DETEMIR) 1 UNITS/0.01ML SC SCH ×2 (08:28→23:15)
[2020-02-09 09:24] VITALS: BP 118/61
[2020-02-09] MEDS: CALCIUM CARB SUSP 1250MG/5ML UNIT DOSE CUP PO SCH ×3 (09:40→21:36)
[2020-02-09] MEDS: GABAPENTIN 300 MG CAP PO SCH ×2 (09:40→21:37)
--- NOTE | 2020-02-09 11:52 | IPNPDOC ---
Date Seen The patient was seen on 02/09/20. Progress Note SUBJECTIVE: Patient seen and examined at bedside this morning. NGT was advanced, patient states mild improvement in abdo pain. Denies fevers or chills, chest pain, sugars of breath or palpitations. No acute events. OBJECTIVE PHYSICAL EXAMINATION: VITAL SIGNS: please see below General: NGT in place HEENT: PERRLA, EOMI, sclerae clear Neck: supple, normal ROM, no JVD Respiratory: lungs CTAB, no wheeze, no rales, no crackles CVS: RRR, normal S1, S2, no murmurs Abdo: Abdomen acutely tender to palpation in the left upper quadrant. Mild guarding. BS+ Extremities: no edema, pulses 2+ MSK: R hallux nail partially detached, dried blood. Neuro: no focal neuro deficits, moving all 4 extremities, CN2-12 intact. Strength 5/5 in all 4 extremities. No nystagmus. Psych: calm, cooperative, AAO x 3 LABORATORY DATA, IMAGING STUDIES, MICROBIOLOGY: Please see below. DVT prophylaxis ordered?: Y ASSESSMENT AND PLAN: 60-year-old male with a history of IDDM, hypertension, hypothyroidism and COPD, who presented to the ED with vomiting, abdominal pain and multiple episodes of syncope after diarrhea. CT of the abdomen is revealed an apple core lesion in proximal ascending colon highly suspicious for neoplasm with a high-grade partial bowel obstruction at the point of the lesion. General surgery was consulted, Dr. Cleveland is following, patient will likely require surgery on this admission. PROBLEMS: #Bowel obstruction 2/2 colon mass: NPO. NGT advanced. IVF. Morphine. Zofran. Surgery Dr. Cleveland following. Likely OR in next few days. C/w zosyn WBC 15, stable. #Syncope: likely vasovagal given profound vomitus. Fall precautions. Orthostats once stable. #Lactic acidosis: resolved with IVF hydration #GIUSEPPE: hold lisinopril, metformin. Renal US wnl. Cr trending down. #Hypokalemia: K 3.0, replaced. Mg 2.1. #Hypocalcemia: ionized Ca++ 4.2. Replace with PO calcium carbonate. Vit D 10.2. TSH 0.02. #Low Vit D: Vit D level 10.2. Replace with 50,000 units qweekly. #IDDM: ISS. FSBS AC & HS. Hypoglycemia precautions. Levemir 10 units BID (home dose 30 units qdaily, 25 units qhs) while NPO. #HTN: amlodipine 2.5 mg. BP low normal, hold BP meds. #Hypothyroid: hold synthroid, TSH 0.02. FT4 1.54. #COPD: albuterol prn #R hallux nail partial detachment: podiatry consult, Dr. Pinto aware. #Schizophrenia: c/w olanzapine, venlafaxine DVT ppx: SCDs DISPOSITION: DC home once medically cleared. VS, I&O, 24H, Fishbone Vital Signs/I&O Vital Signs Date Time Temp Pulse Resp B/P (MAP) Pulse Ox O2 Delivery O2 Flow Rate FiO2 02/09/20 09:24 52 18 118/61 (80) 02/09/20 06:00 99.2 96 Room Air I&O- Last 24 Hours up to 6 AM 02/09/20 05:59 Intake Total 2525 ml Output Total 1870 ml Balance 655 ml Laboratory Data 24H LABS Laboratory Tests 2 02/08/20 11:52: Bedside Glucose (Misc Panel) 123H 02/08/20 17:43: Bedside Glucose (Misc Panel) 96 02/08/20 20:43: Bedside Glucose (Misc Panel) 109 02/09/20 00:26: Bedside Glucose (Misc Panel) 116H 02/09/20 05:29: Immature Granulocyte % (Auto) 0.5, Neutrophils (%) (Auto) 73.4H, Lymphocytes (%) (Auto) 13.4L, Monocytes (%) (Auto) 11.4H, Eosinophils (%) (Auto) 0.8, Basophils (%) (Auto) 0.5, Neutrophils # (Auto) 11.0H, Lymphocytes # (Auto) 2.0, Monocytes # (Auto) 1.7H, Eosinophils # (Auto) 0.1, Basophils # (Auto) 0.1, Nucleated Red Blood Cells % (auto) 0.0, Anion Gap 6L, Glomerular Filtration Rate 54.6, Calcium Level 9.1, Magnesium Level 2.2, Total Bilirubin 0.8, Aspartate Amino Transf (AST/SGOT) 21, Alanine Aminotransferase (ALT/SGPT) 17, Alkaline Phosphatase 102, Total Protein 7.5, Albumin 2.8L, Albumin/Globulin Ratio 0.6 02/09/20 05:34: Bedside Glucose (Misc Panel) 125H CBC/BMP Laboratory Tests 02/09/20 05:29 FRANK DANIELS MD Feb 09, 2020 11:52
[2020-02-09] MEDS ORDERED: LACTATED RINGER'S 1000 ML IV ONE (12:00)
[2020-02-09] MEDS: D5W/LR 1,000 ML IV SCH ×2 (12:16→23:16)
[2020-02-09] MEDS: NEOSPORIN TOP OINT 15GM TOP SCH (12:51)
[2020-02-09] MEDS: LACTIC ACID 12% LOTION 225 GM BTL TOP SCH (12:51)
[2020-02-09 14:00] VITALS: BP 119/61
--- NOTE | 2020-02-09 14:32 | CR ---
DATE OF CONSULTATION: 02/09/2020 REASON FOR CONSULTATION: Ingrowing nail. HISTORY OF PRESENT ILLNESS: Jona Frank is a 60-year-old male who was admitted with abdominal pain. During his hospital stay he was found to have a painful ingrowing nail to his right big toe. I was asked for consultation to see him. MEDICAL HISTORY: 1. Insulin-dependent diabetes mellitus. 2. Hypertension. 3. Hypothyroidism. 4. Chronic obstructive pulmonary disease (COPD). 5. Chronic back pain. 6. Bipolar disorder. SOCIAL HISTORY: Tobacco use, THC, former cocaine use. ALLERGIES: No known drug allergies. REVIEW OF SYSTEMS: He denies fever or chills. Lower extremity examination: Pedal pulse is weakly palpable. On the right hallux there is a significantly elongated ingrowing nail with pain to palpation. ASSESSMENT: Diabetic male with painful ingrowing nail. TREATMENT: Nail was debrided. Apply antibiotic ointment and Band-Aid to toe until healed. Moisture cream to his feet. Followup with me in outpatient in approximately 2 months. QAMAR
[2020-02-09] MEDS: NEOMYCIN SULFATE 500 MG TAB PO SCH (17:21)
[2020-02-09] MEDS: metroNIDAZOLE (FLAGYL) 500MG TABLET PO SCH (17:21)
[2020-02-09] MEDS: OLANZapine 5 MG TAB PO SCH (21:37)
[2020-02-09 22:00] VITALS: BP 109/56
[2020-02-10] MEDS: HumaLOG INSULIN (NovoLOG) PER UNIT SC SCH ×4 (00:45→18:00)
[2020-02-10] MEDS: PIPERACILLIN/TAZOBACTAM SOD 3.375 GM in D5W MINI-BAG PLUS 50 ML IV SCH ×4 (04:33→21:22)
[2020-02-10 06:00] VITALS: BP 121/64
[2020-02-10] MEDS: NEOMYCIN SULFATE 500 MG TAB PO SCH (06:35)
[2020-02-10] MEDS: metroNIDAZOLE (FLAGYL) 500MG TABLET PO SCH (06:35)
[2020-02-10 06:59] LABS: BASO # 0.1 10^3/uL (0.0-0.2); BASO % 0.5 % (0.0-1.0); EOS # 0.1 10^3/uL (0.0-0.5); EOS % 0.9 % (0.0-3.0); HEMATOCRIT 41.8 % (42.0-52.0); HEMOGLOBIN 14.1 g/dl (13.5-17.5); LYMPH # 2.1 10^3/uL (1.5-5.0); LYMPH % 13.8 % (24.0-44.0); MEAN CORPUSCULAR HEMOGLOBIN 29.3 pg (27.0-33.0); MEAN CORPUSCULAR HGB CONC 33.7 g/dl (32.0-36.5); MEAN CORPUSCULAR VOLUME 86.9 fl (80.0-96.0); MONO # 1.8 10^3/uL (0.0-0.8); MONO % 11.8 % (0.0-5.0); NEUTROPHILS # 11.2 10^3/uL (1.5-8.5); NEUTROPHILS % 72.6 % (36.0-66.0); PLATELET COUNT, AUTOMATED 337 10^3/uL (150-450); RED BLOOD COUNT 4.81 10^6/uL (4.30-6.10); WHITE BLOOD COUNT 15.4 10^3/uL (4.0-10.0)
[2020-02-10 07:23] LABS: ALBUMIN 2.6 GM/DL (3.2-5.2); BILIRUBIN,TOTAL 1.6 MG/DL (0.2-1.0); CALCIUM LEVEL 8.9 MG/DL (8.8-10.2); CREATININE FOR GFR 1.32 MG/DL (0.70-1.30); GLOMERULAR FILTRATION RATE 58.9 (>49); POTASSIUM SERUM 4.1 MEQ/L (3.5-5.1); TOTAL PROTEIN 6.8 GM/DL (6.4-8.2)
--- NOTE | 2020-02-10 07:39 | IPNPDOC ---
Date Seen The patient was seen on 02/10/20. Progress Note SUBJECTIVE: Patient seen and examined at bedside this morning. Abdo pain improved. Denies fevers, chills, n/v/d. No chest pain, no SOB, no palpitations. VSS. OBJECTIVE PHYSICAL EXAMINATION: VITAL SIGNS: please see below General: NGT in place HEENT: PERRLA, EOMI, sclerae clear Neck: supple, normal ROM, no JVD Respiratory: lungs CTAB, no wheeze, no rales, no crackles CVS: RRR, normal S1, S2, no murmurs Abdo: Abdomen acutely tender to palpation in the left upper quadrant. Mild guarding. BS+ Extremities: no edema, pulses 2+ MSK: debrided R hallus nail. Neuro: no focal neuro deficits, moving all 4 extremities, CN2-12 intact. Strength 5/5 in all 4 extremities. No nystagmus. Psych: calm, cooperative, AAO x 3 LABORATORY DATA, IMAGING STUDIES, MICROBIOLOGY: Please see below. DVT prophylaxis ordered?: Y ASSESSMENT AND PLAN: 60-year-old male with a history of IDDM, hypertension, hypothyroidism and COPD, who presented to the ED with vomiting, abdominal pain and multiple episodes of syncope after diarrhea. CT of the abdomen is revealed an apple core lesion in proximal ascending colon highly suspicious for neoplasm with a high-grade partial bowel obstruction at the point of the lesion. General surgery was consulted, Dr. Cleveland is following, patient will likely require surgery on this admission. PROBLEMS: #Bowel obstruction 2/2 colon mass: NPO. NGT advanced. IVF. Morphine. Zofran. Surgery Dr. Cleveland following. C/w zosyn. WBC persists. Planned for OR 02/10/20. #Syncope: likely vasovagal given profound vomitus. Fall precautions. Orthostats once stable. #Lactic acidosis: resolved with IVF hydration #GIUSEPPE: hold lisinopril, metformin. Renal US wnl. Cr trending down. #Hypokalemia: K 3.0, replaced. Mg 2.1. #Hypocalcemia: ionized Ca++ 4.2. Replace with PO calcium carbonate. Vit D 10.2. TSH 0.02. #Low Vit D: Vit D level 10.2. Replace with 50,000 units qweekly. #IDDM: ISS. FSBS AC & HS. Hypoglycemia precautions. Levemir 10 units BID (home dose 30 units qdaily, 25 units qhs) while NPO. #HTN: amlodipine 2.5 mg. BP low normal, hold BP meds. #Hypothyroid: hold synthroid, TSH 0.02. FT4 1.54. #COPD: albuterol prn #R hallux ingrown nail: podiatry consult, Dr. Pinto performed debridement. Neosporin. Bandaid. F/u podiatry clinic 2 months. #Schizophrenia: c/w olanzapine, venlafaxine DVT ppx: SCDs DISPOSITION: DC home once medically cleared. VS, I&O, 24H, Fishbone Vital Signs/I&O Vital Signs Date Time Temp Pulse Resp B/P (MAP) Pulse Ox O2 Delivery O2 Flow Rate FiO2 02/10/20 06:00 98.9 58 18 121/64 (83) 96 Room Air I&O- Last 24 Hours up to 6 AM 02/10/20 06:00 Intake Total 2335 ml Output Total 1670 ml Balance 665 ml Laboratory Data 24H LABS Laboratory Tests 2 02/09/20 12:05: Bedside Glucose (Misc Panel) 130H 02/09/20 14:53: Coronavirus (COVID-19)(PCR) NEGATIVE 02/09/20 17:33: Bedside Glucose (Misc Panel) 116H 02/09/20 21:28: Bedside Glucose (Misc Panel) 145H 02/10/20 00:09: Bedside Glucose (Misc Panel) 140H 02/10/20 05:55: Bedside Glucose (Misc Panel) 108 02/10/20 06:21: Immature Granulocyte % (Auto) 0.4, Neutrophils (%) (Auto) 72.6H, Lymphocytes (%) (Auto) 13.8L, Monocytes (%) (Auto) 11.8H, Eosinophils (%) (Auto) 0.9, Basophils (%) (Auto) 0.5, Neutrophils # (Auto) 11.2H, Lymphocytes # (Auto) 2.1, Monocytes # (Auto) 1.8H, Eosinophils # (Auto) 0.1, Basophils # (Auto) 0.1, Nucleated Red Blood Cells % (auto) 0.0, Anion Gap 9, Glomerular Filtration Rate 58.9, Calcium Level 8.9, Magnesium Level 2.0, Total Bilirubin 1.6#H, Aspartate Amino Transf (AST/SGOT) 28, Alanine Aminotransferase (ALT/SGPT) 25, Alkaline Phosphatase 110, Total Protein 6.8, Albumin 2.6L, Albumin/Globulin Ratio 0.6 CBC/BMP Laboratory Tests 02/10/20 06:21 FRANK DANIELS MD Feb 10, 2020 07:38
[2020-02-10] MEDS: LEVEMIR (INSULIN DETEMIR) 1 UNITS/0.01ML SC SCH ×2 (09:00→22:03)
[2020-02-10] MEDS: GABAPENTIN 300 MG CAP PO SCH ×2 (09:21→21:21)
[2020-02-10] MEDS: CALCIUM CARB SUSP 1250MG/5ML UNIT DOSE CUP PO SCH ×3 (09:21→21:22)
[2020-02-10] MEDS: D5W/LR 1,000 ML IV SCH ×3 (09:26→21:30)
[2020-02-10] MEDS: LACTIC ACID 12% LOTION 225 GM BTL TOP SCH (09:43)
[2020-02-10] MEDS: NEOSPORIN TOP OINT 15GM TOP SCH (09:43)
[2020-02-10] MEDS ORDERED: FLEET ENEMA PR ONE (10:15)
[2020-02-10] MEDS ORDERED: MIDAZOLAM INJ 2MG/2ML VIAL (J2250 PER 1MG) As Ordered ONE (12:21)
[2020-02-10] MEDS ORDERED: fentaNYL 250 MCG/5 ML INJECTION (J3010) As Ordered ONE (12:22)
[2020-02-10] MEDS ORDERED: BUPIVACAINE HCL 0.25% 30ML VIAL As Ordered ONE (13:20)
[2020-02-10] MEDS ORDERED: GLYCOPYRROLATE INJ 0.2 MG/ML 2 ML VIAL As Ordered ONE (14:25)
[2020-02-10] MEDS ORDERED: SUCCINYLCHOLINE 100 MG/5 ML SYRINGE (J0330) As Ordered ONE (14:25)
[2020-02-10] MEDS ORDERED: propofoL 200 MG/20 ML VIAL As Ordered ONE (14:25)
[2020-02-10] MEDS ORDERED: ROCURONIUM BROMIDE 50 MG/5 ML VIAL As Ordered ONE ×2 (14:26→14:34)
[2020-02-10] MEDS ORDERED: ONDANSETRON 4MG/2ML VIAL As Ordered ONE (14:26)
[2020-02-10] MEDS ORDERED: METOCLOPRAMIDE INJ 10MG/2ML VIAL (J2765 PER 1) As Ordered ONE (14:26)
[2020-02-10] MEDS ORDERED: dexameTHASONE 4 MG/ML 1ML VIAL (J1100 PER 1MG) As Ordered ONE (14:26)
[2020-02-10] MEDS ORDERED: ePHEDrine SULFATE 25 MG/5 ML(5MG/ML) SYRINGE As Ordered ONE (14:31)
[2020-02-10] MEDS ORDERED: PHENYLephrine HCL 500 MCG/5 ML (100MCG/ML) SYRINGE (J2370) As Ordered ONE (14:44)
[2020-02-10] MEDS ORDERED: ZOSYN 3.375GM VIAL (J2543) As Ordered ONE (15:00)
--- NOTE | 2020-02-10 15:12 | CR ---
DATE OF CONSULTATION: 02/07/2020 REASON FOR CONSULTATION: Obstructing ascending colon mass. HISTORY OF PRESENT ILLNESS: The patient is a 60-year-old man who presented to the emergency department with complaints of severe, crampy lower abdominal pain. He had had some diarrhea and foul-smelling emesis for several days. He apparently suffered a loss of consciousness the previous evening. Apparently, he initially refused to come to the emergency department but his family intervened and he was brought to the emergency department by [facility]. He underwent evaluation in the emergency department with laboratory studies and a CT scan of the abdomen and pelvis. He also had multiple other imaging studies associated apparently with his history of a fall. The CT scan of the abdomen and pelvis identified an obstructing lesion in the proximal ascending colon consistent with an obstructing cancer. There was no evidence of intraabdominal trauma. Other imaging studies included CT scans of the cervical, lumbar and thoracic spines. He had a CT scan of his chest and a CT scan of the head. He also had a knee x-ray. A nasogastric tube was inserted. He has received several boluses of fluid and was started on antibiotics because of an elevated white blood cell count. I am now asked to evaluate the patient regarding his apparent obstructing cancer. ALLERGIES: The patient denies any known drug allergies. MEDICATIONS: Include: - Aspirin 81 mg p.o. daily. - Atorvastatin 20 mg p.o. daily - Jardiance 10 mg p.o. daily - Gabapentin 600 mg p.o. twice daily - Insulin glargine 30 units subcu daily and 25 units subcu nightly - Lisinopril 2.5 mg p.o. daily - Metformin 500 mg tablets with 1000 mg p.o. twice daily - Olanzapine 5 mg p.o. nightly MEDICAL HISTORY: Significant for insulin-dependent diabetes mellitus. He has a history of chronic hypertension. He has hypothyroidism post resection of a goiter. He has chronic obstructive pulmonary disease. He has chronic back pain and also has a reported history of bipolar disorder. SURGICAL HISTORY: Significant for his operation for goiter. This was apparently done in [place]. SOCIAL HISTORY: The patient is a current smoker. He denies any alcohol. Patient is . FAMILY HISTORY: Unknown. REVIEW OF SYSTEMS: Shows no history of chest pain or palpitations. He has no wheezing or sputum production. He denies any dysuria or hematuria. He has no voiding issues. He has not seen any melena or hematochezia. He denies any prior colonoscopy. He has some chronic back pain but denies any significant bone or joint issues of an acute nature. PHYSICAL EXAMINATION: Physical examination reveals a thin man appearing somewhat older, I think, than his stated age of 60 years. He is alert and appropriate. Skin is warm and dry. Sclerae are anicteric. He has a nasogastric tube in place with a small amount of lightly bilious fluid in the tubing. Neck shows a scar anteriorly consistent with a thyroidectomy. There is no mass appreciated. Heart exam shows a regular rhythm. Lungs are clear to auscultation. The abdomen is thin with no evident scars. There is no sign of hernia. The abdomen shows active bowel sounds in all four quadrants. The abdomen is soft and shows some, perhaps, mild tenderness in the mid abdomen and right lower quadrant. LABORATORY STUDIES: From the morning show a white count of 20,000, hemoglobin 15, hematocrit 43 and a platelet count of 360,000. Differential count shows 84% neutrophils, 7% lymphocytes and 8% monocytes. He had a PT of 15 with an INR of 1.16, and a PTT was normal. Chemistry profile at noon on the showed normal electrolytes with a BUN of 35, creatinine 1.89 and a glucose of 160. A hemoglobin A1c was 6.2. Liver function tests were not significantly abnormal and his total protein is 7.8 with an albumin of 3.3. IMAGING: As noted, the abdominal CT showed an obstructing mass in the proximal ascending colon with some small bowel distention. Cervical spine x-ray was interpreted as showing no acute fracture with multilevel degenerative disk disease. The thoracic spine similarly showed no fracture or other acute abnormality. There was some degenerative disk disease noted. He had a lumbar spine CT that showed no acute fracture. The CT scan of the chest revealed no evidence of thoracic trauma or intrathoracic metastatic disease. CT of the brain showed no acute intracranial abnormality with some atrophy and chronic microangiopathic changes in the supratentorial white matter. His knee x-ray revealed some early degenerative changes of the right knee with no fracture and a question of an old bone infarct in the distal femur. IMPRESSION: 1. Colonic obstruction secondary to obstructing mass of proximal ascending colon. 2. Diabetes mellitus. 3. Chronic hypertension. 4. Hypothyroidism, status post resection of goiter. 5. Chronic obstructive pulmonary disease. 6. Schizophrenia per the hospitalist admission. PLAN: The patient was counseled that there is an obstructing mass in the right colon. This is almost certainly a cancer. I have recommended that we obtain a CEA level to evaluate this further. I do not think that it will be necessary to attempt a colonoscopy for diagnosis. He would not be able to perform a bowel preparation and we are, therefore, unlikely to achieve a satisfactory result from the colonoscopy. I think we would also run the risk of delaying his surgical intervention to a point where the risk of progression of his obstruction and possible perforation would be increased. I anticipate proceeding to the OR within the next couple of days. QAMAR
[2020-02-10] MEDS ORDERED: ACETAMINOPHEN 1000MG 100ML IV BTL (OFIRMEV) (J0131 PER 10MG) As Ordered ONE (15:38)
[2020-02-10] MEDS ORDERED: VECURONIUM BROMIDE 10MG VIAL As Ordered ONE (16:14)
[2020-02-10] MEDS ORDERED: SUGAMMADEX SODIUM 500 MG/5 ML VIAL (BRIDION) As Ordered ONE (17:47)
[2020-02-10] MEDS ORDERED: fentaNYL 100 MCG/2 ML INJECTION (J3010) As Ordered ONE (18:13)
[2020-02-10] MEDS ORDERED: HYDROmorphone HCL 2 MG/ML 1ML VIAL (J1170) As Ordered ONE (19:05)
[2020-02-10] MEDS ORDERED: PERCOCET 5MG/325MG TAB PO PRN (20:00)
[2020-02-10] MEDS ORDERED: fentaNYL 100 MCG/2 ML INJECTION (J3010) IV PRN (20:00)
[2020-02-10] MEDS ORDERED: ONDANSETRON 4MG/2ML VIAL IV PRN (20:00)
[2020-02-10] MEDS ORDERED: LR 1,000 ML IV SCH (20:00)
[2020-02-10 20:40] VITALS: BP 169/82
[2020-02-10 21:05] VITALS: BP 157/81
[2020-02-10] MEDS: OLANZapine 5 MG TAB PO SCH (21:22)
[2020-02-10 21:35] VITALS: BP 164/79
[2020-02-10 22:00] VITALS: BP 149/78
[2020-02-10 23:35] VITALS: BP 143/73
[2020-02-11] MEDS: HumaLOG INSULIN (NovoLOG) PER UNIT SC SCH ×4 (00:24→18:03)
[2020-02-11 00:35] VITALS: BP 140/73
[2020-02-11] MEDS ORDERED: METOCLOPRAMIDE INJ 10MG/2ML VIAL (J2765 PER 1) IV PRN (01:00)
[2020-02-11] MEDS: PIPERACILLIN/TAZOBACTAM SOD 3.375 GM in D5W MINI-BAG PLUS 50 ML IV SCH ×4 (03:02→21:10)
[2020-02-11] MEDS: D5W/LR 1,000 ML IV SCH (05:57)
[2020-02-11] MEDS: ACETAMINOPHEN TAB 650MG DOSE (2X325MG) PO PRN ×2 (05:58→18:04)
[2020-02-11 06:00] VITALS: BP 129/67
[2020-02-11 06:24] LABS: BASO % 0.3 % (0.0-1.0); EOS % 0.3 % (0.0-3.0); HEMATOCRIT 38.2 % (42.0-52.0); HEMOGLOBIN 12.4 g/dl (13.5-17.5); LYMPH # 1.5 10^3/uL (1.5-5.0); MEAN CORPUSCULAR HEMOGLOBIN 28.5 pg (27.0-33.0); MEAN CORPUSCULAR HGB CONC 32.5 g/dl (32.0-36.5); MEAN CORPUSCULAR VOLUME 87.8 fl (80.0-96.0); MONO # 1.2 10^3/uL (0.0-0.8); MONO % 10.1 % (0.0-5.0); NEUTROPHILS # 8.7 10^3/uL (1.5-8.5); PLATELET COUNT, AUTOMATED 283 10^3/uL (150-450); RED BLOOD COUNT 4.35 10^6/uL (4.30-6.10); WHITE BLOOD COUNT 11.5 10^3/uL (4.0-10.0)
[2020-02-11 06:38] LABS: ALBUMIN 2.1 GM/DL (3.2-5.2); ALT/SGPT 21 U/L (12-78); BILIRUBIN,TOTAL 1.3 MG/DL (0.2-1.0); BLOOD UREA NITROGEN 12 MG/DL (7-18); CALCIUM LEVEL 7.8 MG/DL (8.8-10.2); CARBON DIOXIDE LEVEL 26 MEQ/L (21-32); CHLORIDE LEVEL 105 MEQ/L (98-107); CREATININE FOR GFR 1.24 MG/DL (0.70-1.30); GLOMERULAR FILTRATION RATE > 60.0 (>49); GLUCOSE, FASTING 167 MG/DL (70-100); MAGNESIUM LEVEL 1.7 MG/DL (1.8-2.4); POTASSIUM SERUM 4.3 MEQ/L (3.5-5.1); SODIUM LEVEL 138 MEQ/L (136-145); TOTAL PROTEIN 5.3 GM/DL (6.4-8.2)
[2020-02-11] MEDS: MAG SULF 1GM/100ML (MAG RUN) 1 GM in IV 1 EA IV SCH ×2 (08:27→09:33)
[2020-02-11] MEDS: CALCIUM CARB SUSP 1250MG/5ML UNIT DOSE CUP PO SCH ×3 (08:28→21:08)
[2020-02-11] MEDS: LEVEMIR (INSULIN DETEMIR) 1 UNITS/0.01ML SC SCH ×2 (08:28→21:10)
[2020-02-11] MEDS: LACTIC ACID 12% LOTION 225 GM BTL TOP SCH (08:28)
[2020-02-11] MEDS: GABAPENTIN 300 MG CAP PO SCH ×2 (08:28→21:09)
[2020-02-11] MEDS: NEOSPORIN TOP OINT 15GM TOP SCH (08:28)
--- NOTE | 2020-02-11 09:27 | IPNPDOC ---
Date Seen The patient was seen on 02/11/20. Progress Note SUBJECTIVE: Patient seen and examined at bedside this morning. POD#1 after hemicolectomy. JEFFERY drain in place. Denies fevers, chills, n/v/d. No chest pain, no SOB, no palpitations. VSS. OBJECTIVE PHYSICAL EXAMINATION: VITAL SIGNS: please see below General: NGT in place HEENT: PERRLA, EOMI, sclerae clear Neck: supple, normal ROM, no JVD Respiratory: lungs CTAB, no wheeze, no rales, no crackles CVS: RRR, normal S1, S2, no murmurs Abdo: JEFFERY drain in place, laparoscopic surgical site dressings CDI. Abdo soft, no guarding Extremities: no edema, pulses 2+ MSK: debrided R hallus nail. Neuro: no focal neuro deficits, moving all 4 extremities, CN2-12 intact. Strength 5/5 in all 4 extremities. No nystagmus. Psych: calm, cooperative, AAO x 3 LABORATORY DATA, IMAGING STUDIES, MICROBIOLOGY: Please see below. DVT prophylaxis ordered?: Y ASSESSMENT AND PLAN: 60-year-old male with a history of IDDM, hypertension, hypothyroidism and COPD, who presented to the ED with vomiting, abdominal pain and multiple episodes of syncope after diarrhea. CT of the abdomen is revealed an apple core lesion in proximal ascending colon highly suspicious for neoplasm with a high-grade partial bowel obstruction at the point of the lesion. General surgery was consulted, Dr. Cleveland is following. POD#1. PROBLEMS: #Bowel obstruction 2/2 colon mass: NPO. NGT advanced. IVF. Morphine. Zofran. Surgery Dr. Cleveland following. C/w zosyn. WBC trending down. POD#1 s/p hemicolectomy. #Syncope: likely vasovagal given profound vomitus. Fall precautions. Orthostats once stable. #Lactic acidosis: resolved with IVF hydration #GIUSEPPE: resolved. hold lisinopril, metformin. Renal US wnl. #Hypokalemia: K 3.0, replaced. #Hypomagnesemia: Mg2+ 1.7. Krun x 2. #Hypocalcemia: ionized Ca++ 4.2. Replace with PO calcium carbonate. Vit D 10.2. TSH 0.02. #Low Vit D: Vit D level 10.2. Replace with 50,000 units qweekly. #IDDM: ISS. FSBS AC & HS. Hypoglycemia precautions. Levemir 10 units BID (home dose 30 units qdaily, 25 units qhs) while NPO. #HTN: amlodipine 2.5 mg. BP low normal, hold BP meds. #Hypothyroid: hold synthroid, TSH 0.02. FT4 1.54. #COPD: albuterol prn #R hallux ingrown nail: podiatry consult, Dr. Pinto performed debridement. Neosporin. Bandaid. F/u podiatry clinic 2 months. #Schizophrenia: c/w olanzapine, venlafaxine DVT ppx: SCDs DISPOSITION: DC home once medically cleared. VS, I&O, 24H, Fishbone Vital Signs/I&O Vital Signs Date Time Temp Pulse Resp B/P (MAP) Pulse Ox O2 Delivery O2 Flow Rate FiO2 02/11/20 08:28 62 129/67 02/11/20 06:32 98.4 02/11/20 06:00 18 95 Nasal Cannula 2.0 I&O- Last 24 Hours up to 6 AM 02/11/20 05:59 Intake Total 4150 ml Output Total 2720 ml Balance 1430 ml Laboratory Data 24H LABS Laboratory Tests 2 02/10/20 11:45: Bedside Glucose (Misc Panel) 124H 02/10/20 20:10: Bedside Glucose (Misc Panel) 174H 02/10/20 21:10: Bedside Glucose (Misc Panel) 160H 02/11/20 00:15: Bedside Glucose (Misc Panel) 203H 02/11/20 05:38: Immature Granulocyte % (Auto) 0.3, Neutrophils (%) (Auto) 76.0H, Lymphocytes (%) (Auto) 13.0L, Monocytes (%) (Auto) 10.1H, Eosinophils (%) (Auto) 0.3, Basophils (%) (Auto) 0.3, Neutrophils # (Auto) 8.7H, Lymphocytes # (Auto) 1.5, Monocytes # (Auto) 1.2H, Eosinophils # (Auto) 0.0, Basophils # (Auto) 0.0, Nucleated Red Blood Cells % (auto) 0.0, Anion Gap 7L, Glomerular Filtration Rate > 60.0, Calcium Level 7.8L, Magnesium Level 1.7L, Total Bilirubin 1.3H, Aspartate Amino Transf (AST/SGOT) 18, Alanine Aminotransferase (ALT/SGPT) 21, Alkaline Phosphatase 84, Total Protein 5.3#L, Albumin 2.1L, Albumin/Globulin Ratio 0.7 CBC/BMP Laboratory Tests 02/11/20 05:38 FRANK DANIELS MD Feb 11, 2020 09:27
[2020-02-11 10:00] VITALS: BP 112/55
[2020-02-11 14:00] VITALS: BP 144/73
[2020-02-11 18:00] VITALS: BP 139/71
[2020-02-11] MEDS: oxyCODONE 5MG TAB PO PRN (18:04)
[2020-02-11] MEDS: OLANZapine 5 MG TAB PO SCH (21:09)
[2020-02-11 22:00] VITALS: BP 114/58
[2020-02-12 02:00] VITALS: BP 137/68
[2020-02-12] MEDS: PIPERACILLIN/TAZOBACTAM SOD 3.375 GM in D5W MINI-BAG PLUS 50 ML IV SCH ×4 (03:19→21:59)
[2020-02-12] MEDS: D5W/LR 1,000 ML IV SCH (04:59)
[2020-02-12] MEDS: HumaLOG INSULIN (NovoLOG) PER UNIT SC SCH ×4 (05:41→18:50)
[2020-02-12 06:00] VITALS: BP 132/62
[2020-02-12 06:07] LABS: BASO # 0.1 10^3/uL (0.0-0.2); BASO % 0.3 % (0.0-1.0); EOS # 0.2 10^3/uL (0.0-0.5); EOS % 1.4 % (0.0-3.0); HEMOGLOBIN 12.2 g/dl (13.5-17.5); LYMPH # 1.5 10^3/uL (1.5-5.0); LYMPH % 9.5 % (24.0-44.0); MEAN CORPUSCULAR VOLUME 87.9 fl (80.0-96.0); MONO # 1.5 10^3/uL (0.0-0.8); MONO % 9.5 % (0.0-5.0); NEUTROPHILS # 12.7 10^3/uL (1.5-8.5); NEUTROPHILS % 78.7 % (36.0-66.0); PLATELET COUNT, AUTOMATED 304 10^3/uL (150-450); RED BLOOD COUNT 4.21 10^6/uL (4.30-6.10); WHITE BLOOD COUNT 16.2 10^3/uL (4.0-10.0)
[2020-02-12 06:33] LABS: ALBUMIN 2.1 GM/DL (3.2-5.2); ALT/SGPT 18 U/L (12-78); BILIRUBIN,TOTAL 0.9 MG/DL (0.2-1.0); BLOOD UREA NITROGEN 10 MG/DL (7-18); CALCIUM LEVEL 7.8 MG/DL (8.8-10.2); CARBON DIOXIDE LEVEL 27 MEQ/L (21-32); CHLORIDE LEVEL 103 MEQ/L (98-107); CREATININE FOR GFR 1.16 MG/DL (0.70-1.30); GLOMERULAR FILTRATION RATE > 60.0 (>49); GLUCOSE, FASTING 108 MG/DL (70-100); SODIUM LEVEL 136 MEQ/L (136-145); TOTAL PROTEIN 5.4 GM/DL (6.4-8.2)
[2020-02-12] MEDS: CALCIUM CARB SUSP 1250MG/5ML UNIT DOSE CUP PO SCH ×3 (09:06→20:23)
[2020-02-12] MEDS: LACTIC ACID 12% LOTION 225 GM BTL TOP SCH (09:06)
[2020-02-12] MEDS: GABAPENTIN 300 MG CAP PO SCH ×2 (09:06→20:23)
[2020-02-12] MEDS: LEVEMIR (INSULIN DETEMIR) 1 UNITS/0.01ML SC SCH ×2 (09:06→20:34)
[2020-02-12] MEDS: NEOSPORIN TOP OINT 15GM TOP SCH (09:07)
[2020-02-12] MEDS: KETOROLAC 30 MG/ML 1ML VIAL IV PRN (09:09)
--- NOTE | 2020-02-12 09:59 | IPNPDOC ---
Date Seen The patient was seen on 02/12/20. Progress Note SUBJECTIVE: Patient seen and examined at bedside this morning. POD#2 after hemicolectomy. JEFFERY drain in place. C/o worsened abdominal pain, worse mid abdomen, LLQ. Denies n/v/d. No chest pain, no SOB, no palpitations. VSS. Tolerating CLD. OBJECTIVE PHYSICAL EXAMINATION: VITAL SIGNS: please see below General: NGT in place HEENT: PERRLA, EOMI, sclerae clear Neck: supple, normal ROM, no JVD Respiratory: lungs CTAB, no wheeze, no rales, no crackles CVS: RRR, normal S1, S2, no murmurs Abdo: JEFFERY drain in place, laparoscopic surgical site dressings CDI. Abdo soft, moderately tender to palpation centrally, LLQ. Extremities: no edema, pulses 2+ MSK: debrided R hallus nail. Neuro: no focal neuro deficits, moving all 4 extremities, CN2-12 intact. Strength 5/5 in all 4 extremities. No nystagmus. Psych: calm, cooperative, AAO x 3 LABORATORY DATA, IMAGING STUDIES, MICROBIOLOGY: Please see below. DVT prophylaxis ordered?: Y ASSESSMENT AND PLAN: 60-year-old male with a history of IDDM, hypertension, hypothyroidism and COPD, who presented to the ED with vomiting, abdominal pain and multiple episodes of syncope after diarrhea. CT of the abdomen is revealed an apple core lesion in proximal ascending colon highly suspicious for neoplasm with a high-grade partial bowel obstruction at the point of the lesion. General surgery was consulted, Dr. Cleveland is following. POD#2. PROBLEMS: #Bowel obstruction 2/2 colon mass: febrile overnight. WBC elevated. Monitor abdo exams. CLD. IVF. Morphine. Zofran. Surgery Dr. Cleveland following. C/w zosyn. POD#2 s/p hemicolectomy. #Syncope: likely vasovagal given profound vomitus. Fall precautions. Orthostats once stable. #Lactic acidosis: resolved with IVF hydration #GIUSEPPE: resolved. hold lisinopril, metformin. Renal US wnl. #Acute blood loss anemia: Hgb 14.2 --> 12.2, from operative losses, monitor Hgb. #Hypokalemia: K 3.0, replaced. #Hypomagnesemia: resolved. Mg2+ 1.7. Krun x 2. #Hypocalcemia: ionized Ca++ 4.2. Replace with PO calcium carbonate. Vit D 10.2. TSH 0.02. #Low Vit D: Vit D level 10.2. Replace with 50,000 units qweekly. #IDDM: ISS. FSBS AC & HS. Hypoglycemia precautions. Levemir 10 units BID (home dose 30 units qdaily, 25 units qhs) while NPO. #HTN: amlodipine 2.5 mg. resume. #Hypothyroid: hold synthroid, TSH 0.02. FT4 1.54. #COPD: albuterol prn #R hallux ingrown nail: podiatry consult, Dr. Pinto performed debridement. Neosporin. Bandaid. F/u podiatry clinic 2 months. #Schizophrenia: c/w olanzapine, venlafaxine DVT ppx: SCDs DISPOSITION: DC home once medically cleared. VS, I&O, 24H, Fishbone Vital Signs/I&O Vital Signs Date Time Temp Pulse Resp B/P (MAP) Pulse Ox O2 Delivery O2 Flow Rate FiO2 02/12/20 09:06 61 132/62 02/12/20 06:00 98.7 18 94 Room Air 02/11/20 22:00 2.0 I&O- Last 24 Hours up to 6 AM 02/12/20 06:00 Intake Total 2750 ml Output Total 900 ml Balance 1850 ml Laboratory Data 24H LABS Laboratory Tests 2 02/11/20 11:33: Bedside Glucose (Misc Panel) 143H 02/11/20 17:06: Bedside Glucose (Misc Panel) 167H 02/11/20 20:44: Bedside Glucose (Misc Panel) 138H 02/12/20 00:21: Bedside Glucose (Misc Panel) 117H 02/12/20 05:27: Immature Granulocyte % (Auto) 0.6, Neutrophils (%) (Auto) 78.7H, Lymphocytes (%) (Auto) 9.5L, Monocytes (%) (Auto) 9.5H, Eosinophils (%) (Auto) 1.4, Basophils (%) (Auto) 0.3, Neutrophils # (Auto) 12.7H, Lymphocytes # (Auto) 1.5, Monocytes # (Auto) 1.5H, Eosinophils # (Auto) 0.2, Basophils # (Auto) 0.1, Nucleated Red Blood Cells % (auto) 0.0, Anion Gap 6L, Glomerular Filtration Rate > 60.0, Calcium Level 7.8L, Magnesium Level 2.0, Total Bilirubin 0.9, Aspartate Amino Transf (AST/SGOT) 19, Alanine Aminotransferase (ALT/SGPT) 18, Alkaline Phosphatase 82, Total Protein 5.4L, Albumin 2.1L, Albumin/Globulin Ratio 0.6 02/12/20 05:33: Bedside Glucose (Misc Panel) 125H CBC/BMP Laboratory Tests 02/12/20 05:27 RFANK DANIELS MD Feb 12, 2020 09:59
[2020-02-12 10:00] VITALS: BP 129/63
[2020-02-12 14:00] VITALS: BP 153/72
[2020-02-12 18:00] VITALS: BP 120/66
[2020-02-12] MEDS: OLANZapine 5 MG TAB PO SCH (20:25)
[2020-02-12 22:00] VITALS: BP 118/62
[2020-02-13] VITALS (7 sets, daily range): BP systolic 94–143; BP diastolic 50–64
[2020-02-13] MEDS: HumaLOG INSULIN (NovoLOG) PER UNIT SC SCH ×5 (00:10→21:00)
[2020-02-13] MEDS: PIPERACILLIN/TAZOBACTAM SOD 3.375 GM in D5W MINI-BAG PLUS 50 ML IV SCH ×4 (03:18→21:40)
[2020-02-13 06:28] LABS: BASO # 0.1 10^3/uL (0.0-0.2); BASO % 0.7 % (0.0-1.0); EOS # 0.4 10^3/uL (0.0-0.5); HEMATOCRIT 36.3 % (42.0-52.0); HEMOGLOBIN 11.8 g/dl (13.5-17.5); LYMPH # 2.9 10^3/uL (1.5-5.0); LYMPH % 21.2 % (24.0-44.0); MEAN CORPUSCULAR HEMOGLOBIN 28.6 pg (27.0-33.0); MEAN CORPUSCULAR HGB CONC 32.5 g/dl (32.0-36.5); MEAN CORPUSCULAR VOLUME 87.9 fl (80.0-96.0); MONO # 1.4 10^3/uL (0.0-0.8); MONO % 10.2 % (0.0-5.0); NEUTROPHILS # 8.9 10^3/uL (1.5-8.5); PLATELET COUNT, AUTOMATED 318 10^3/uL (150-450); RED BLOOD COUNT 4.13 10^6/uL (4.30-6.10); WHITE BLOOD COUNT 13.9 10^3/uL (4.0-10.0)
[2020-02-13 06:52] LABS: BILIRUBIN,TOTAL 0.7 MG/DL (0.2-1.0); CREATININE FOR GFR 1.33 MG/DL (0.70-1.30); GLOMERULAR FILTRATION RATE 58.4 (>49); MAGNESIUM LEVEL 2.1 MG/DL (1.8-2.4); POTASSIUM SERUM 4.1 MEQ/L (3.5-5.1); TOTAL PROTEIN 5.6 GM/DL (6.4-8.2)
[2020-02-13] MEDS ORDERED: NS 500 ML IV ONE (07:15)
--- NOTE | 2020-02-13 08:47 | IPNPDOC ---
Date Seen The patient was seen on 02/13/20. Progress Note SUBJECTIVE: Patient seen and examined at bedside this morning. POD#3 after hemicolectomy. JEFFERY drain in place. States abdominal pain has improved. Afebrile. Overnight BP 90s over 60s 500 mL bolus ordered.. She denies lightheadedness, dizziness. Denies n/v/d. No chest pain, no SOB, no palpitations. VSS. Diet was advanced by Dr. Cleveland, no tolerating regular diet OBJECTIVE PHYSICAL EXAMINATION: VITAL SIGNS: please see below General: NGT in place HEENT: PERRLA, EOMI, sclerae clear Neck: supple, normal ROM, no JVD Respiratory: lungs CTAB, no wheeze, no rales, no crackles CVS: RRR, normal S1, S2, no murmurs Abdo: JEFEFRY drain in place, laparoscopic surgical site dressings CDI. Abdo soft, mildly tender to palpation diffusely Extremities: no edema, pulses 2+ MSK: debrided R hallus nail. Neuro: no focal neuro deficits, moving all 4 extremities, CN2-12 intact. Strength 5/5 in all 4 extremities. No nystagmus. Psych: calm, cooperative, AAO x 3 LABORATORY DATA, IMAGING STUDIES, MICROBIOLOGY: Please see below. DVT prophylaxis ordered?: Y ASSESSMENT AND PLAN: 60-year-old male with a history of IDDM, hypertension, hypothyroidism and COPD, who presented to the ED with vomiting, abdominal pain and multiple episodes of syncope after diarrhea. CT of the abdomen is revealed an apple core lesion in proximal ascending colon highly suspicious for neoplasm with a high-grade partial bowel obstruction at the point of the lesion. General surgery was consulted, Dr. Cleveland is following. POD#3. PROBLEMS: #Bowel obstruction 2/2 colon mass: Afebrile. WBC trending down Monitor abdo exams.regular diet. Morphine. Zofran. Surgery Dr. Cleveland following. C/w zosyn. POD#2 s/p hemicolectomy. #Syncope: likely vasovagal given profound vomitus. Fall precautions. Orthostats once stable. #Lactic acidosis: resolved with IVF hydration #GIUSEPPE: It is slightly in greatest will give gentle hydration hold lisinopril, metformin. Renal US wnl. #Acute blood loss anemia: Hgb stable. Continue to monitor #Hypokalemia: K 3.0, replaced. #Hypomagnesemia: resolved. Mg2+ 1.7. Krun x 2. #Hypocalcemia: ionized Ca++ 4.2. Replace with PO calcium carbonate. Vit D 10.2. TSH 0.02. #Low Vit D: Vit D level 10.2. Replace with 50,000 units qweekly. #IDDM: ISS. FSBS AC & HS. Hypoglycemia precautions. Levemir 10 units BID (home dose 30 units qdaily, 25 units qhs). Sugars have been in the low 100s. Hold insulin for now #HTN: amlodipine 2.5 mg.. Holding that pressure medications #Hypothyroid: hold synthroid, TSH 0.02. FT4 1.54. #COPD: albuterol prn #R hallux ingrown nail: podiatry consult, Dr. Pinot performed debridement. Neosporin. Bandaid. F/u podiatry clinic 2 months. #Schizophrenia: c/w olanzapine, venlafaxine DVT ppx: SCDs DISPOSITION: DC home once medically cleared. VS, I&O, 24H, Fishbone Vital Signs/I&O Vital Signs Date Time Temp Pulse Resp B/P (MAP) Pulse Ox O2 Delivery O2 Flow Rate FiO2 02/13/20 07:55 58 112/62 (79) 02/13/20 06:00 97.7 17 99 Room Air 02/11/20 22:00 2.0 I&O- Last 24 Hours up to 6 AM 02/13/20 06:00 Intake Total 2720 ml Output Total 1365 ml Balance 1355 ml Laboratory Data 24H LABS Laboratory Tests 2 02/12/20 12:45: Bedside Glucose (Misc Panel) 115 02/12/20 18:05: Bedside Glucose (Misc Panel) 122H 02/12/20 20:24: Bedside Glucose (Misc Panel) 105 02/12/20 23:35: Bedside Glucose (Misc Panel) 132H 02/13/20 05:39: Immature Granulocyte % (Auto) 0.9, Neutrophils (%) (Auto) 64.0, Lymphocytes (%) (Auto) 21.2L, Monocytes (%) (Auto) 10.2H, Eosinophils (%) (Auto) 3.0, Basophils (%) (Auto) 0.7, Neutrophils # (Auto) 8.9H, Lymphocytes # (Auto) 2.9, Monocytes # (Auto) 1.4H, Eosinophils # (Auto) 0.4, Basophils # (Auto) 0.1, Nucleated Red Blood Cells % (auto) 0.0, Anion Gap 8, Glomerular Filtration Rate 58.4, Calcium Level 8.0L, Magnesium Level 2.1, Total Bilirubin 0.7, Aspartate Amino Transf (AST/SGOT) 20, Alanine Aminotransferase (ALT/SGPT) 16, Alkaline Phosphatase 85, Total Protein 5.6L, Albumin 2.0L, Albumin/Globulin Ratio 0.6 CBC/BMP Laboratory Tests 02/13/20 05:39 FRANK DANIELS MD Feb 13, 2020 08:47
[2020-02-13] MEDS: LEVEMIR (INSULIN DETEMIR) 1 UNITS/0.01ML SC SCH ×2 (09:00→21:39)
[2020-02-13] MEDS: LR 1,000 ML IV SCH ×2 (09:17→20:19)
[2020-02-13] MEDS: CALCIUM CARB SUSP 1250MG/5ML UNIT DOSE CUP PO SCH ×3 (09:18→21:38)
[2020-02-13] MEDS: GABAPENTIN 300 MG CAP PO SCH ×2 (09:18→21:39)
[2020-02-13] MEDS: NEOSPORIN TOP OINT 15GM TOP SCH (09:20)
[2020-02-13] MEDS: LACTIC ACID 12% LOTION 225 GM BTL TOP SCH (09:20)
[2020-02-13] MEDS: oxyCODONE 5MG TAB PO PRN (10:05)
--- NOTE | 2020-02-13 11:38 | RO ---
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 PROCEDURE PERFORMED: Robotic assisted laparoscopic right hemicolectomy with resection of pericolonic abscess and ileo colonic anastomosis, decompression of the small bowel, and repair of small bowel cautery injury. SURGEON: Meng Cleveland MD FISH PITCHER: Dr. Frank. Dr. Franks assistance was necessary for inserting an additional specimen retrieval bag with a new port, as well as assisting with the exposure for the anastomosis, assisting with the anastomosis and repair of the small bowel cautery injury. ANESTHESIA: General INDICATIONS FOR THE PROCEDURE: The patient is a 60-year-old man who presented with a bowel obstruction related to a large mass in the proximal ascending colon. This was felt to be consistent with a colonic carcinoma. Preoperative CEA was mildly to moderately elevated at 5.4. He is now for a robotic assisted laparoscopic right hemicolectomy. OPERATIVE PROCEDURE: The patient was brought to the operating room and placed on the table in a supine position. He was placed under general endotracheal anesthesia. A Mcdonald catheter was inserted. A nasogastric tube was already in place. TEDs and sequentials were utilized. The patient was positioned supine on the table and the patient's abdomen was then prepped and draped in a sterile fashion. 25% Marcaine was infiltrated at each of the trocar sites as needed. The initial incision was in the left upper quadrant just below the costal margin. A Veress needle was inserted and after positive hanging drop test was abdomen was inflated with carbon dioxide gas. An 8 mm port was placed over a 5 mm scope and advanced through this incision without difficult. Initial examination showed some air and fluid filled moderately dilated loops of small bowel in the mid abdomen and lower abdomen. The liver was well seen and did not appear to have any metastatic deposits. The mesentery was smooth with no evidence of metastases. A second 8 mm port that was placed approximately 10 cm lower in the left upper quadrant and slightly closer to the midline. A 12 mm port was placed just below the umbilicus and a final 8 mm port was placed in the right lower quadrant. The patient was tilted to a slight Trendelenburg position to level the abdomen. The patient cart with the da [place] XI robotic system was rolled into position and the endoscope port was docked to the left upper quadrant, but not the highest left upper quadrant port. Targeting took place in the right mid abdomen and the additional robotic arms were then docked. Endoscopic scissors was placed high in the left upper quadrant. A fenestrated bipolar was placed below the umbilicus and a grasper retractor in the left lower quadrant. I then moved to the control console to proceed with the operation. Initially, some additional inspection of the abdomen was performed. There were some adhesions of the omentum to the gallbladder. The transverse colon was quite mobile and was easily identified. There was some omentum adherent into the paracolic gutter lateral to the colon in the area where the mass was located. The terminal ileum was readily identified. There was some air and fluid filled small bowel, which did make exposure somewhat more difficult. There were a few adhesions of the inferior and mid ascending colon to the lateral abdominal wall and these appeared to be developmental. Initially, the attachments of the omentum to the gallbladder were divided using the vessel sealer. The omentum was elevated off of the colon. Laterally, where there was some adherence of the portion of the omentum adjacent to the colon, this segment of omentum was transected and left attached to the colon in this area. I proceeded with dissection of the omentum away from the transverse colon to work from the mid transverse towards the hepatic flexure. The fibrofatty tissues in the subhepatic space were dissected away from the colon and the colon was mobilized inferiorly. A tentative site was selected for division of the transverse colon. An opening was created through the mesentery of the proximal transverse colon and the colon was transected with a robotic 45 mm stapler with a green load. A second load was required to complete the transection. The mesentery was then further divided down towards the base with the vessel sealer. At this point, I moved to the terminal ileum. This was elevated. Because of the dilation of the small bowel, the small bowel was less mobile. I was able to transect the terminal ileum with another load of the stapler after creating an opening through the mesentery. The mesentery was then divided down towards the base. At this point, I elected to try decompressing the small bowel to allow for better exposure, particularly of the medial aspect of the ascending colon for the dissection of the mesentery. Therefore, a site was selected in the most dilated portion of the small bowel and a small opening was created using the cauterizing scissors. A suction private duty nurse was inserted through this opening and a large amount of air and some bilious fluid was aspirated. Some 15 minutes or more was taken to allow additional fluid or air to progress to this point. I also was able to manipulate the suction private duty nurse to suction distally as well and I was able to significantly reduce the amount of dilated bowel present. The opening was then sutured closed with a 2 layer closure of 3-0 Vicryl. The area was irrigated slightly and the irrigation was removed. The patient was tilted to the left and placed into a reverse Trendelenburg position slightly. After this, I was able to better see the distal ascending colon and hepatic flexure portion of the procedure. The dissection of the transverse mesocolon down towards base was completed using the vessel sealer. The retroperitoneal duodenum was clearly identified and the mesentery of the ascending colon was carefully peeled away from the underlying retroperitoneal duodenum working distally. The colon in the region of the hepatic flexure was readily elevated off of the underlying tissues, but it was clear that the mass was adherent to the retroperitoneum approximately in the area of the inferior portion of the right kidney and the lateral abdominal wall. I elected to move to the dissection distally and the patient was then tilted slightly to a flat to slightly Trendelenburg position to better expose the area of the terminal ileum and the ileocolic vessel. The mesentery of the terminal ileum was dissected down to its base. The appendix was freed from the retroperitoneum by dividing the filmy attachments. The lateral attachments of the cecum were divided with the vessel sealer and a nice areolar plane was entered and this was carried as far superior as possible. The ileocolic vessel was followed down to its base and the vessels were then divided with the vessel sealer. There was an approximately 1.5 to 2 cm oval lymph node identified right at this point and this was left attached to the specimen. The dissection from the hepatic flexure working down along the retroperitoneal duodenum was then connected to the dissection moving distally from the ileocolic vessels and the entire medial aspect of the dissection was completed. This left the specimen attached at its lateral and posterior positions at the level of the tumor. I then began dissecting the tumor away from the abdominal wall taking the peritoneum off of the underlying muscle tissue and working from medial to lateral. As this dissection proceeded, I entered an abscess cavity with some quite thick greenish-yellow pus. This was suctioned from the abscess and was not allowed to be spread any further in the abdomen. The dissection then proceeded working both from posteriorly and laterally. It was apparent as the dissection proceeded that there was a multiloculated abscess in the lateral and posterior aspects of the tumor extending into the retroperitoneal fat. A portion of Gerotas fascia and the perinephric fat was taken with the specimen in dissecting this off of the retroperitoneum. After completing this dissection the specimen was freed. The area was irrigated to remove any spilled contamination. There was no evidence of any significant bleeding or oozing. At this point, Dr. Frank came to the operating room (OR) to assist. I elected to place the specimen into a specimen retrieval pouch to prevent spillage of any of the abscess contents or any potential tumor spread during withdrawal of the specimen. Dr. Frank therefore removed the 12 mm infraumbilical port and replaced this with a 15mm port. A large specimen retrieval bag was inserted and it was possible to place the entire right hemicolectomy specimen into this bag without difficulty. The bag was then closed and set aside. At this point, the right side of the abdomen was thoroughly irrigated with saline and the irrigation was removed. Several additional attachments of the transverse colon were lysed using the cauterizing scissors to free this additionally so it could be brought more easily to meet the terminal ileum. In the course of dissection, I had created a cautery burn with the bipolar cautery and this was on a portion of the small bowel, perhaps 30 to 45 cm proximal to the end of the terminal ileum. This site was identified for repair. At this point, robotic instruments were removed and the robot was un-docked and the patient cart was removed. I returned to the patient's bedside. Using a hand laparoscope, a grasper was inserted to grab the end of the terminal ileum and second grasper was inserted to hold the end of the colon. The incision at the 15 mm infraumbilical port site was then extended superiorly around the umbilicus to create a large enough incision for withdrawal of the specimen. The specimen was withdrawn in the specimen retrieval bag and set aside for later inspection. A small Brown retractor was inserted. The end of the terminal ileum and the end of the colon were then inserted and brought out through the retractor. Both ends were clearly viable. They were aligned with a 3-0 Vicryl suture. A stapled anastomosis was then performed with a linear cutter 55 stapler and a TX60 G stapler. Several reinforcing sutures of 3-0 Vicryl were placed. The anastomosis was irrigated and reduced into the abdomen while maintaining control of the terminal ileum. This was then followed proximally until the area of the cautery burn was identified. This looked too large to simply imbricate this, so I performed a [id number] anastomosis at the level of the burn and excised the burn area in completing the anastomosis. This was again accomplished with a linear cutter 55 stapler and a TX60 G. Several reinforcing sutures of 3-0 Vicryl were placed and this was then also reduced into the abdomen. The fascia was then closed with a series of interrupted simple sutures of #1 Vicryl. The abdomen was then re-inflated. Using a hand laparoscope, I proceeded to place a 19 [place] Jai drain along the area that would have been the paracolic gutter and through the area where his abscess had been located. This was inserted through a small stab incision in the right upper quadrant by directing the drain into the abdomen and it was grasped through a small incision by Dr. Frank in the right upper quadrant. I laid the drain in the appropriate position and some of the omentum in this area was laid over the drain. Final inspection showed no evidence of any bleeding. The patient was returned to a flat position. The abdomen was deflated and the trocars were removed. The skin incisions were all closed with buried 4-0 Vicryl and Steri-Strips. Light dressings were applied. The patient's nasogastric tube and Mcdonald catheter were removed. He was awakened in the operating room, extubated and moved to the recovery room in stable condition. A single marking suture was placed at the apex of his right colon mesentery marking the highest node. QAMAR
--- NOTE | 2020-02-13 21:09 | ECGEPIP ---
[facility] Test Date: 2020-02-13 Pat Name: JESSICA GUAJARDO Department: Room: [place] [address] Gender: Male [employer] Developer: COREY : 1960 Requested By: FRANK DANIELS Order Number: [id number] Reading MD: Zac Brantley Measurements Intervals Yeso Rate: 53 P: 53 MN: 148 QRS: -10 QRSD: 84 T: -2 QT: 439 QTc: 413 Interpretive Statements SINUS BRADYCARDIA Nonspecific ST-T wave abnormalities Low QRS complex voltage in the limb leads Rate decreased from tracing done 02-07-20 Electronically Signed on 02-13-2020 21:09:03 EST by Zac Brantley
[2020-02-13] MEDS: OLANZapine 5 MG TAB PO SCH (21:39)
[2020-02-14] VITALS (8 sets, daily range): BP systolic 100–127; BP diastolic 55–68
[2020-02-14] MEDS: PIPERACILLIN/TAZOBACTAM SOD 3.375 GM in D5W MINI-BAG PLUS 50 ML IV SCH ×2 (04:51→09:27)
[2020-02-14] MEDS: LR 1,000 ML IV SCH ×2 (05:46→11:53)
[2020-02-14 06:56] LABS: BASO # 0.1 10^3/uL (0.0-0.2); BASO % 0.4 % (0.0-1.0); EOS # 0.3 10^3/uL (0.0-0.5); EOS % 2.9 % (0.0-3.0); HEMATOCRIT 36.7 % (42.0-52.0); HEMOGLOBIN 12.2 g/dl (13.5-17.5); LYMPH # 2.3 10^3/uL (1.5-5.0); LYMPH % 20.3 % (24.0-44.0); MEAN CORPUSCULAR HEMOGLOBIN 29.5 pg (27.0-33.0); MEAN CORPUSCULAR HGB CONC 33.2 g/dl (32.0-36.5); MEAN CORPUSCULAR VOLUME 88.6 fl (80.0-96.0); MONO # 1.4 10^3/uL (0.0-0.8); MONO % 12.4 % (0.0-5.0); NEUTROPHILS # 7.3 10^3/uL (1.5-8.5); NEUTROPHILS % 63.4 % (36.0-66.0); PLATELET COUNT, AUTOMATED 352 10^3/uL (150-450); RED BLOOD COUNT 4.14 10^6/uL (4.30-6.10); WHITE BLOOD COUNT 11.5 10^3/uL (4.0-10.0)
[2020-02-14 07:24] LABS: ALBUMIN 2.1 GM/DL (3.2-5.2); ALT/SGPT 23 U/L (12-78); BILIRUBIN,TOTAL 0.7 MG/DL (0.2-1.0); BLOOD UREA NITROGEN 18 MG/DL (7-18); CARBON DIOXIDE LEVEL 22 MEQ/L (21-32); CHLORIDE LEVEL 109 MEQ/L (98-107); CREATININE FOR GFR 1.29 MG/DL (0.70-1.30); GLOMERULAR FILTRATION RATE > 60.0 (>49); GLUCOSE, FASTING 101 MG/DL (70-100); POTASSIUM SERUM 4.7 MEQ/L (3.5-5.1); SODIUM LEVEL 136 MEQ/L (136-145); TOTAL PROTEIN 5.7 GM/DL (6.4-8.2)
[2020-02-14] MEDS: HumaLOG INSULIN (NovoLOG) PER UNIT SC SCH ×4 (07:30→20:20)
[2020-02-14] MEDS: LEVEMIR (INSULIN DETEMIR) 1 UNITS/0.01ML SC SCH (09:00)
[2020-02-14] MEDS: CALCIUM CARB SUSP 1250MG/5ML UNIT DOSE CUP PO SCH ×3 (09:27→20:19)
[2020-02-14] MEDS: GABAPENTIN 300 MG CAP PO SCH ×2 (09:27→20:20)
[2020-02-14] MEDS: VITAMIN D 50,000 UNITS CAPSULE (ERGOCALCIFEROL 1.25MG) PO SCH (09:27)
[2020-02-14] MEDS: LACTIC ACID 12% LOTION 225 GM BTL TOP SCH (09:28)
[2020-02-14] MEDS: NEOSPORIN TOP OINT 15GM TOP SCH (09:28)
--- NOTE | 2020-02-14 09:54 | IPN ---
DATE: 02/08/2020 HISTORY: Patient was seen in consultation yesterday for an obstructing lesion in the proximal ascending colon. He has remained fairly stable overnight. He did have some increased crampy pains earlier today, but these have again remitted. PHYSICAL EXAMINATION: Vital signs show that he has been afebrile over the past 24 hours. His pulse remains in the 50s and 60s. Blood pressure is good. Intake and output show that yesterday he had 2700 in with 1800 out. He had 400 out of his NG-tube. Patient is alert and appears fairly comfortable at rest. He complains mostly about the NG-tube and feeling hungry. Heart exam: Regular rhythm. Lungs: Clear. Abdomen: Perhaps mildly distended, but only very mildly. He does have some bowel sounds present. The abdomen is soft and he has some mild tenderness in the lower extremity in particular. LABORATORY DATA: Laboratory studies shows today that his electrolytes are normal with the exception of a chloride of 112. BUN is 30 with a creatinine of 1.5. His CEA returned at 5.4 which is mildly to moderately elevated. CBC today showed a white count of 15 which is down from 20,000 yesterday. Hemoglobin is 14 with a hematocrit of 42 and the differential shows 75% neutrophils and 14% lymphocytes. IMPRESSION: Patient seems to be tolerating his obstruction fairly well. He had some crampy pains earlier and a KUB showed some mildly distended air filled small bowel loops in the mid-abdomen as before. He is not having any significant pain currently. He is reporting very little in the way of flatus. PLAN: Patient was counseled that I am planning surgery within the next day or 2. I am going to shoot for Thursday the . Unfortunately he will not tolerate a standard bowel prep though I am anticipating given him some oral antibiotics at least in the hope that these will help reduce his risk of infection. QAMAR
--- NOTE | 2020-02-14 09:58 | IPN ---
DATE: 02/09/2020 HISTORY: Patient had presented with abdominal pain and nausea and vomiting with CT showing an obstructing lesion in the proximal ascending colon. He also has had a quite elevated white count the etiology of which is not entirely clear. I have secured a spot on the operating schedule for the 09 of February, this Thursday. PHYSICAL EXAMINATION: Vital signs show that he has been afebrile over the past 24 hours. His pulse remains in the 60s and his blood pressure is good. Intake and output yesterday showed 2400 in with 2600 out. He had 450 from his NG-tube and his urine output is otherwise good. Patient is alert and appears comfortable. Heart and lung exams: Unchanged and normal. Abdomen: Perhaps very mildly distended, but is soft with positive bowel sounds. LABORATORY DATA: Laboratory studies show a white count of 15 with a hemoglobin of 14, hematocrit 41 and a platelet count of 350,000. Differential count shows 73% neutrophils, 13% lymphocytes and 11% monocytes. Chemistry profile shows essentially normal electrolytes with a BUN of 24, creatinine 1.4 and a glucose of 124. Liver function tests are normal. IMPRESSION: Patient is tolerating his colonic obstruction well. He still has some dilated small bowel as noted on his x-ray yesterday. I am hoping that this will not interfere significantly with a robotic laparoscopic approach to his surgery. PLAN: The patient was counseled for a robotic assisted right hemicolectomy. Indications for the surgery as well as the risks and possible benefits were discussed. Risks include, but are not limited to bleeding, infection, scarring, adverse drug reaction, need for further surgery, injury of internal organ, anastomotic leaks and hernia. The patient had an opportunity to ask questions. These were answered to the best of my ability. I have ordered some pre-operative neomycin and Flagyl and will just continue his Zosyn for now as well. His surgery should be in the early afternoon on 02/09. QAMAR
--- NOTE | 2020-02-14 10:02 | IPN ---
DATE: 02/11/2020 HISTORY: Patient is now post-op day number 1 from a robotic assisted laparoscopic right hemicolectomy. At surgery he was found to have a large mass with an associated abscess infiltrating into the lateral abdominal wall and retroperitoneum. A portion of his Gerotas fascia and perinephric fat was resected to resect the abscess. Because of the abscess a drain was left in the right pericolic gutter and across the area of his abscess. His NG-tube was removed at the time of surgery. Today he reports that he is hungry and denies any nausea or vomiting. He has had minimal flatus and no other bowel activity. PHYSICAL EXAMINATION: Vital signs show that he had a T-max his morning of 100.5 and has otherwise been afebrile. His pulse is in the low 60s and his blood pressure is excellent. Intake and output show that yesterday he had 4150 in with 1720 out. He has had only 95 mL out in his drain yesterday. His urine output is good today. Patient is awake and appears fairly comfortable at rest. Heart exam: Regular rhythm. Lungs: Clear. Abdomen: The abdomen is mildly full. He does have some bowel sounds present those these are not particularly active. His dressings are clean and dry. The drain has a small amount of old blood in the tubing and nothing in the bottle. LABORATORY DATA: Laboratory studies show a white count today down to 11.5 from 15 yesterday. Hemoglobin is 12 with a hematocrit of 38 and his differential shows 76% neutrophils, 13% lymphocytes and 10% monocytes. Chemistry profile shows normal electrolytes with a BUN of 12, creatinine 1.2 and a glucose of 167. IMPRESSION: Patient is doing very well post-op day 1 from his surgery. I suspect that his mass is cancer and that this represents a perforation and abscess associated with this cancer. He also had some enlarged retroperitoneal nodes and we will need to await his final pathology. PLAN: I will allow him to take some limited clear liquids today. Once he has more evidence for bowel function we can advance his diet. I will slow his I.V. rate down slightly today as well and encouraged him to be up out of bed ambulating. QAMAR
--- NOTE | 2020-02-14 10:03 | IPN ---
DATE: 02/12/2020 HISTORY: Patient is now postoperative day #2 from a robotic assisted laparoscopic right hemicolectomy with excision of a pericolonic abscess as well. He was started on some sips of clear liquids yesterday and tolerated these well. He reports that he is voiding without difficulty and had a large, loose bowel movement earlier in the day. Vital signs show that he had a maximum temperature (T-max) of 100.4 yesterday at 6 p.m. He has been afebrile since. His pulse is in the low 60s and upper 50s. Blood pressure is good and his room air oxygen saturation is normal. Intake and output show that as of yesterday he had 2300 in with 1900 out. PHYSICAL EXAMINATION: Patient is lying quietly on the hospital bed. He appears quite comfortable. He reports that he is hungry. He does report some flatus and stool which is watery. Heart and lung exam is unremarkable. The abdomen is flat. His dressings are clean and dry. He does have some active bowel sounds present and no undue tenderness on exam. His drain in the right flank shows a small amount of bloody fluid from the area of his pericolonic abscess. LABORATORY STUDIES: Today, show a white count of 16, hemoglobin 12, hematocrit 37, and a platelet count of 304,000. Differential count shows 79% neutrophils, 10% lymphocytes, and 10% monocytes. Chemistry profile shows normal electrolytes with a BUN of 10, creatinine 1.16, and a glucose of 108. Liver function tests are normal. IMPRESSION: Patient is doing very well postoperative day #2 from his colectomy. He has had a return of bowel function with a large amount of loose stool. PLAN: Patient will be started on a regular diet. He was encouraged to begin gradually and work up to a full amount of food. I will stop his IV fluid at this time. We will continue his antibiotics given the findings of a large pericolonic abscess at the time of his surgery. The drain will be continued. His pathology is pending. QAMAR
--- NOTE | 2020-02-14 10:04 | IPN ---
DATE: 02/13/2020 HISTORY: The patient is now postop day number three from a robotic assisted laparoscopic right hemicolectomy with section of the attached pericolonic abscess. Final pathology is still pending. The patient has been advanced to a regular diet which he has been tolerating. He has been having some loose bowel movements. Vital signs show that he has been afebrile over the past 24 hours. His pulse is in the 50s and low 60s and his blood pressure is excellent. Intake and output show that yesterday he had 3,500 in recorded with only 1,115 recorded out. His abdominal drain had only 15 mL recorded out yesterday though he has had 50 mL so far today. PHYSICAL EXAMINATION: GENERAL APPEARANCE: The patient is awake and alert and appears quite comfortable. HEART: Unremarkable. LUNGS: Unremarkable. ABDOMEN: Mildly distended. He has active bowel sounds. His dressings are clean and dry. The drain has a small amount of serosanguinous fluid in the container. LABORATORY STUDIES: Today white count of 14,000, hemoglobin 12, hematocrit 36 and a platelet count of 318,000. Differential count shows 64% neutrophils, 21% lymphocytes and 10% monocytes. Chemistry profile shows normal electrolytes and normal liver function tests. Total protein is 5.6 with an albumin of 2.0. IMPRESSION: Patient is doing very well following his right hemicolectomy and removal of his associated abscess. His drain has minimal out but more today than yesterday, so I will continue this one more day. PLAN: He will remain on his regular diet. I anticipate that the drain can likely come out tomorrow. I would continue the Zosyn until after his drain has been removed and his differential count is fully normalized. His final pathology is pending. I would anticipate that he is likely to be ready for discharge from the point of view of his surgery within the next 2-3 days. QAMAR
--- NOTE | 2020-02-14 12:31 | IPNPDOC ---
Date Seen The patient was seen on 02/14/20. Progress Note SUBJECTIVE: POD#4 after hemicolectomy. Minimal o/p from JEFFERY drain this AM, 30 mL. Possible removal today per surgery. Slightly hypotensive overnight, held CCB and c/w IVFs. Denies lightheadedness, dizziness, n/v/d, chest pain, SOB, palpitations. Tolerating regular diet well, stopped IV abx and started PO with probiotic. OBJECTIVE: PHYSICAL EXAMINATION: VITAL SIGNS: please see below General: NGT in place HEENT: PERRLA, EOMI, sclerae clear Neck: supple, normal ROM, no JVD Respiratory: lungs CTAB, no wheeze, no rales, no crackles CVS: RRR, normal S1, S2, no murmurs Abdo: JEFFERY drain in place, laparoscopic surgical site dressings CDI. Abdo soft, mildly tender to palpation diffusely Extremities: no edema, pulses 2+ MSK: debrided R hallus nail. Neuro: no focal neuro deficits, moving all 4 extremities, CN2-12 intact. Strength 5/5 in all 4 extremities. No nystagmus. Psych: calm, cooperative, AAO x 3 LABORATORY DATA, IMAGING STUDIES, MICROBIOLOGY: Please see below. ASSESSMENT AND PLAN: 60-year-old male with a history of IDDM, hypertension, hypothyroidism and COPD, who presented to the ED with vomiting, abdominal pain and multiple episodes of syncope after diarrhea. CT of the abdomen is revealed an apple core lesion in proximal ascending colon highly suspicious for neoplasm with a high-grade partial bowel obstruction at the point of the lesion. General surgery was consulted, Dr. Cleveland is following. POD#4 for hemicolectomy. PROBLEMS: #Bowel obstruction 2/2 colon mass, POD#2 s/p hemicolectomy. Afebrile. WBC minimally high at 11K, trending down. Tolerating regular diet. Morphine, Zofran. Surgery Dr. Cleveland following and recommend several more days of treatment, awaiting pathology report. Zosyn--> cipro, flagyl PO, probiotic. #Hypotension likely 2/2 to decreased Po intake. Hx of HTN. Eating 25% of meals, IVFs 125 cc/hr, d/c amlodipine. Monitor closely. #Syncope likely vasovagal given profound vomitus. Fall precautions. Resolved. #Lactic acidosis 2/2 to dehydration. Resolved. #GIUSEPPE likely 2/2 to dehydration. Resolved with IVFs. C/w holding lisinopril, metformin. Renal US wnl. #Acute blood loss anemia: Hgb stable. Continue to monitor #Hypocalcemia: ionized Ca++ 4.2. Replaced with PO calcium carbonate. Vit D 10.2. TSH 0.02. #Low Vit D: Vit D level 10.2. Replace with 50,000 units qweekly. #IDDM. D/c levemir BID (home dose 30 units qdaily, 25 units qhs) due to lower than normal BS. C/w ISS. FSBS AC & HS. Hypoglycemia precautions. #Hypothyroid. not on home synthroid, TSH 0.02. FT4 1.54. #COPD: Stable. albuterol prn #R hallmelisa ingrown nail: podiatry consult, Dr. Pinto performed debridement. Neosporin. Bandaid. F/u podiatry clinic 2 months. #Schizophrenia. Stable. c/w olanzapine, venlafaxine DVT ppx: SCDs DISPOSITION: DC home once medically cleared. VS, I&O, 24H, Fishbone Vital Signs/I&O Vital Signs Date Time Temp Pulse Resp B/P (MAP) Pulse Ox O2 Delivery O2 Flow Rate FiO2 02/14/20 10:00 98.2 56 16 104/56 (72) 97 Room Air 02/11/20 22:00 2.0 I&O- Last 24 Hours up to 6 AM 02/14/20 06:00 Intake Total 3315 ml Output Total 505 ml Balance 2810 ml Laboratory Data 24H LABS Laboratory Tests 2 02/13/20 17:10: Bedside Glucose (Misc Panel) 125H 02/13/20 21:01: Bedside Glucose (Misc Panel) 123H 02/14/20 06:41: Immature Granulocyte % (Auto) 0.6, Neutrophils (%) (Auto) 63.4, Lymphocytes (%) (Auto) 20.3L, Monocytes (%) (Auto) 12.4H, Eosinophils (%) (Auto) 2.9, Basophils (%) (Auto) 0.4, Neutrophils # (Auto) 7.3, Lymphocytes # (Auto) 2.3, Monocytes # (Auto) 1.4H, Eosinophils # (Auto) 0.3, Basophils # (Auto) 0.1, Nucleated Red Blood Cells % (auto) 0.0, Anion Gap 5L, Glomerular Filtration Rate > 60.0, Calcium Level 8.0L, Magnesium Level 2.0, Total Bilirubin 0.7, Aspartate Amino Transf (AST/SGOT) 24, Alanine Aminotransferase (ALT/SGPT) 23, Alkaline Phosphatase 101, Total Protein 5.7L, Albumin 2.1L, Albumin/Globulin Ratio 0.6 02/14/20 11:51: Bedside Glucose (Misc Panel) 104 CBC/BMP Laboratory Tests 02/14/20 06:41 Current Medications Current Medications Medications (Trade) Dose Ordered Sig/Martha Route PRN Reason Start Time Stop Time Status Last Admin Dose Admin Acetaminophen (Tylenol Tab) 650 mg Q6HP PRN PO PAIN / FEVER 02/11/20 06:00 02/11/20 18:04 Albuterol Sulfate (Proventil, Ventolin Hfa) 2 puff Q4HP PRN INH SHORTNESS OF BREATH 02/07/20 07:15 Amlodipine Besylate (Norvasc) 2.5 mg DAILY PO 02/07/20 09:00 02/12/20 09:06 Calcium Carbonate (Calcium Carbonate) 1,250 mg TID PO 02/07/20 16:00 02/14/20 09:27 Ciprofloxacin (Cipro) 500 mg BID@06,18 PO 02/14/20 18:00 Dextrose (Dextrose 50%) 25 ml ASDIRECTED PRN IV SEE LABEL COMMENTS 02/07/20 03:15 Dextrose/Lactated Ringer's 1,000 ml @ 60 mls/hr [id number] IV 02/09/20 12:00 02/12/20 16:06 DC 02/12/20 04:59 Fentanyl Citrate (Sublimaze) 25 mcg Q5MP PRN IV PAIN LEVEL 5-10 02/10/20 20:00 02/10/20 21:00 DC Gabapentin (Neurontin) 600 mg BID PO 02/07/20 09:00 02/14/20 09:27 Glucagon (Glucagon) 1 mg ASDIRECTED PRN SC SEE LABEL COMMENTS 02/07/20 03:15 Glucose (Glucose) 16 GM ASDIRECTED PRN PO SEE LABEL COMMENTS 02/07/20 03:15 Home Med (Med Rec Complete!) ASDIRECTED XX 02/07/20 04:30 02/07/20 05:07 DC Insulin Detemir (Levemir Insulin) 10 units BID SC 02/07/20 09:00 02/13/20 21:39 Insulin Human Lispro (HumaLOG INSULIN) SEE PROTOCOL TABLE AC PR 02/13/20 07:30 02/13/20 18:00 Insulin Human Lispro (HumaLOG INSULIN) SEE PROTOCOL TABLE QHS PR 02/13/20 21:00 Insulin Human Lispro (HumaLOG INSULIN) See Protocol Table Q6H PR 02/07/20 06:00 02/13/20 03:02 DC 02/13/20 00:10 Ketorolac Tromethamine (ToRADol) 15 mg Q6H PRN IV MODERATE PAIN (PS 5-7) 02/10/20 20:00 02/15/20 19:59 02/12/20 09:09 Lactated Ringer's 1,000 ml @ 80 mls/hr [id number] IV 02/13/20 07:00 02/14/20 11:53 Lactated Ringer's 1,000 ml @ 100 mls/hr Q10H IV 02/10/20 20:00 02/10/20 21:00 DC Lactic Acid (Lac-Hydrin 12% Lotion) apply to feet daily DAILY TOP 02/09/20 09:00 02/14/20 09:28 Magnesium Sulfate/ Dextrose 1 gm/IV Miscellaneous Supplies 100 ml @ 100 mls/hr Q1H IV 02/11/20 08:00 02/11/20 09:59 DC 02/11/20 09:33 Metoclopramide HCl (REGLAN INJection) 5 mg Q6HP PRN IV NAUSEA OR VOMITING 02/11/20 01:00 02/12/20 16:06 DC Metronidazole (Flagyl) 500 mg Q12H PO 02/09/20 18:00 02/10/20 06:01 DC 02/10/20 06:35 Metronidazole (Flagyl) 500 mg Q8H PO 02/14/20 14:00 Morphine Sulfate (Morphine Sulfate Inj) 2 mg Q2H PRN IV pain 02/07/20 03:15 02/12/20 16:06 DC 02/09/20 04:14 Neomycin Sulfate (Mycifradin) 1,000 mg Q12H PO 02/09/20 18:00 02/10/20 06:01 DC 02/10/20 06:35 Neomycin/ Polymyxin/ Bacitracin (Neosporin) apply to toe daily, cover w... DAILY TOP 02/09/20 09:00 02/14/20 09:28 Olanzapine (ZyPREXA) 5 mg QHS PO 02/07/20 21:00 02/13/20 21:39 Ondansetron HCl (ZOFRAN INJection) 4 mg Q4HP PRN IV NAUSEA OR VOMITING 02/07/20 03:15 02/07/20 21:58 Ondansetron HCl (ZOFRAN INJection) 4 mg Q4HP PRN IV NAUSEA OR VOMITING 02/10/20 20:00 02/10/20 20:15 DC Oxycodone HCl (Roxicodone, Oxyir) 5 mg Q4HP PRN PO SEVERE PAIN (PS 8-10) 02/10/20 20:00 02/13/20 10:05 Oxycodone/ Acetaminophen (Percocet 5mg/ 325mg Tablet) 1 tab ASDIRECTED PRN PO PAIN LEVEL 1-4 02/10/20 20:00 02/10/20 21:00 DC Piperacillin Sod/ Tazobactam Sod 3.375 gm/Dextrose 50 ml @ 50 mls/hr Q6H IV 02/07/20 10:00 02/14/20 10:46 DC 02/14/20 09:27 Potassium Chloride 20 meq/ Dextrose/Lactated Ringer's 1,010 ml @ 100 mls/hr Q10H6M IV 02/08/20 13:00 02/09/20 11:50 DC 02/09/20 02:04 Potassium Chloride 40 meq/ Lactated Ringer's 1,020 ml @ 100 mls/hr [id number] IV 02/07/20 04:00 02/08/20 11:12 DC 02/08/20 09:22 Vitamin D (Drisdol) 50,000 units Tu@09 PO 02/07/20 09:00 02/14/20 09:27 Allergies Coded Allergies: No Known Allergies (Unverified , 04/15/17) Liset Grissom MD Feb 14, 2020 12:31
[2020-02-14] MEDS: metroNIDAZOLE (FLAGYL) 500MG TABLET PO SCH ×2 (14:10→21:34)
[2020-02-14] MEDS: CIPROFLOXACIN 500MG TABLET PO SCH (17:32)
[2020-02-14] MEDS: LACTOBACILLUS ACIDOPHILUS CAP (BACID) PO SCH (17:32)
[2020-02-14] MEDS: OLANZapine 5 MG TAB PO SCH (20:19)
[2020-02-15] VITALS (7 sets, daily range): BP systolic 103–129; BP diastolic 49–61
[2020-02-15] MEDS: LR 1,000 ML IV SCH ×2 (01:34→08:55)
[2020-02-15] MEDS: CIPROFLOXACIN 500MG TABLET PO SCH ×2 (05:35→16:56)
[2020-02-15] MEDS: metroNIDAZOLE (FLAGYL) 500MG TABLET PO SCH ×3 (05:35→21:38)
[2020-02-15 06:15] LABS: HEMOGLOBIN 11.5 g/dl (13.5-17.5); MEAN CORPUSCULAR HEMOGLOBIN 28.7 pg (27.0-33.0); MEAN CORPUSCULAR HGB CONC 32.9 g/dl (32.0-36.5); MEAN CORPUSCULAR VOLUME 87.3 fl (80.0-96.0); PLATELET COUNT, AUTOMATED 360 10^3/uL (150-450); RED BLOOD COUNT 4.01 10^6/uL (4.30-6.10); WHITE BLOOD COUNT 11.5 10^3/uL (4.0-10.0)
[2020-02-15 06:40] LABS: BLOOD UREA NITROGEN 15 MG/DL (7-18); CALCIUM LEVEL 8.3 MG/DL (8.8-10.2); CARBON DIOXIDE LEVEL 21 MEQ/L (21-32); CHLORIDE LEVEL 108 MEQ/L (98-107); CREATININE FOR GFR 1.01 MG/DL (0.70-1.30); GLOMERULAR FILTRATION RATE > 60.0 (>49); GLUCOSE, FASTING 89 MG/DL (70-100); POTASSIUM SERUM 4.5 MEQ/L (3.5-5.1); SODIUM LEVEL 136 MEQ/L (136-145)
[2020-02-15] MEDS: HumaLOG INSULIN (NovoLOG) PER UNIT SC SCH ×4 (07:30→20:23)
[2020-02-15] MEDS: CALCIUM CARB SUSP 1250MG/5ML UNIT DOSE CUP PO SCH ×3 (08:55→20:23)
[2020-02-15] MEDS: GABAPENTIN 300 MG CAP PO SCH ×2 (08:55→20:23)
[2020-02-15] MEDS: LACTOBACILLUS ACIDOPHILUS CAP (BACID) PO SCH ×2 (08:55→16:56)
[2020-02-15] MEDS: NEOSPORIN TOP OINT 15GM TOP SCH (08:58)
[2020-02-15] MEDS: LACTIC ACID 12% LOTION 225 GM BTL TOP SCH (08:58)
[2020-02-15] MEDS: KETOROLAC 30 MG/ML 1ML VIAL IV PRN (09:01)
[2020-02-15] MEDS: ACETAMINOPHEN TAB 650MG DOSE (2X325MG) PO PRN (09:02)
--- NOTE | 2020-02-15 15:11 | IPNPDOC ---
Date Seen The patient was seen on 02/15/20. Progress Note SUBJECTIVE: POD#5 after hemicolectomy. O/p from JEFFERY drain this AM, approx 30 mL. Pathology: adenocarcinoma, mod. differentiated. Discussed with Dr. Cleveland. Hypotension resolved, IVFs d/c'd. Tolerating diet, PO abx. Denies lightheadedness, dizziness, n/v/d, chest pain, SOB, palpitations. OBJECTIVE: PHYSICAL EXAMINATION: VITAL SIGNS: please see below General: NAD, resting in bed HEENT: PERRLA, EOMI, sclerae clear Neck: supple, normal ROM, no JVD Respiratory: lungs CTAB, no wheeze, no rales, no crackles CVS: RRR, normal S1, S2, no murmurs Abdo: JEFFERY drain in place, laparoscopic surgical site dressings CDI. Abdo soft, mildly tender to palpation diffusely, moreso in right upper quadrant Extremities: no edema, no atrophy MSK: debrided R hallus nail. Neuro: no focal neuro deficits, moving all 4 extremities, CN2-12 intact. Strength 5/5 in all 4 extremities. No nystagmus. Psych: calm, cooperative, AAO x 3 LABORATORY DATA, IMAGING STUDIES, MICROBIOLOGY: Please see below. ASSESSMENT AND PLAN: 60-year-old male with a history of IDDM, hypertension, hypothyroidism and COPD, who presented to the ED with vomiting, abdominal pain and multiple episodes of syncope after diarrhea. CT of the abdomen is revealed an apple core lesion in proximal ascending colon highly suspicious for neoplasm with a high-grade partial bowel obstruction at the point of the lesion. General surgery was consulted, Dr. Cleveland is following. POD#5 for hemicolectomy. PROBLEMS: #Bowel obstruction 2/2 colon mass, POD#5 s/p hemicolectomy. -Having bowel movements, less watery over 24 hours after d/c IV abx and adding probiotic -Pathology: likely adenocarcinoma, mod differentiated. Peritumoral abscess identified. [address] LN no tumor present. -Afebrile. WBC minimally high at 11K, trending down. -Tolerating regular diet. -C/w Morphine, Zofran, cipro, flagyl PO, probiotic. -Surgery,Dr. Cleveland: Will discuss removing drain in next 24-48 hrs. In regards to new diagnosis of possible adenocarcinoma, MMR deficiency testing, KRAS mutation, NRAS and BRAF V600E mutation testing pending. Surgery states he would suggest having patient f/u as o/p with heme/onc. #Acute blood loss anemia -No s/s of bleeding -Hgb stable. -CBC regularly #Hypocalcemia -ionized Ca++ 4.2. Vit D 10.2. TSH 0.02. -C/w calcium carbonate TID #Low Vit D -Vit D level 10.2. -C/w Vit D 50,000 units qweekly. #IDDM. -Hypoglycemia resolved after d/c levemir BID (home dose 30 units qdaily, 25 units qhs) -C/w ISS. FSBS AC & HS, diet -Hypoglycemia precautions. #Hypothyroidism, not on home synthroid -Asymptomatic -TSH 0.02. FT4 1.54. -F/u thyroid US #COPD -Stable. -Albuterol prn #R ector [place] nail -Dr. Pinto performed debridement. -Neosporin. -F/u podiatry clinic 2 months. #Schizophrenia. -Stable. - c/w olanzapine, venlafaxine #DVT ppx: -SCDs Resolved issues: #Hypotension likely 2/2 to decreased PO intake. #Syncope likely vasovagal given profound vomitus. #Lactic acidosis 2/2 to dehydration. #GIUSEPPE likely 2/2 to dehydration. DISPOSITION: DC home once medically cleared by surgery. VS, I&O, 24H, Fishbone Vital Signs/I&O Vital Signs Date Time Temp Pulse Resp B/P (MAP) Pulse Ox O2 Delivery O2 Flow Rate FiO2 02/15/20 10:00 98.3 51 18 112/59 (76) 97 Room Air 02/11/20 22:00 2.0 I&O- Last 24 Hours up to 6 AM 02/15/20 06:00 Intake Total 4385 ml Output Total 1140 ml Balance 3245 ml Laboratory Data 24H LABS Laboratory Tests 2 02/14/20 16:49: Bedside Glucose (Misc Panel) 117H 02/14/20 19:35: Bedside Glucose (Misc Panel) 108 02/15/20 05:23: Nucleated Red Blood Cells % (auto) 0.0, Anion Gap 7L, Glomerular Filtration Rate > 60.0, Calcium Level 8.3L 02/15/20 11:30: Bedside Glucose (Misc Panel) 115 CBC/BMP Laboratory Tests 02/15/20 05:23 Current Medications Current Medications Medications (Trade) Dose Ordered Sig/Martha Route PRN Reason Start Time Stop Time Status Last Admin Dose Admin Acetaminophen (Tylenol Tab) 650 mg Q6HP PRN PO PAIN / FEVER 02/11/20 06:00 02/15/20 09:02 Albuterol Sulfate (Proventil, Ventolin Hfa) 2 puff Q4HP PRN INH SHORTNESS OF BREATH 02/07/20 07:15 Amlodipine Besylate (Norvasc) 2.5 mg DAILY PO 02/07/20 09:00 02/14/20 12:40 DC 02/12/20 09:06 Calcium Carbonate (Calcium Carbonate) 1,250 mg TID PO 02/07/20 16:00 02/15/20 08:55 Ciprofloxacin (Cipro) 500 mg BID@06,18 PO 02/14/20 18:00 02/15/20 05:35 Dextrose (Dextrose 50%) 25 ml ASDIRECTED PRN IV SEE LABEL COMMENTS 02/07/20 03:15 Dextrose/Lactated Ringer's 1,000 ml @ 60 mls/hr [id number] IV 02/09/20 12:00 02/12/20 16:06 DC 02/12/20 04:59 Fentanyl Citrate (Sublimaze) 25 mcg Q5MP PRN IV PAIN LEVEL 5-10 02/10/20 20:00 02/10/20 21:00 DC Gabapentin (Neurontin) 600 mg BID PO 02/07/20 09:00 02/15/20 08:55 Glucagon (Glucagon) 1 mg ASDIRECTED PRN SC SEE LABEL COMMENTS 02/07/20 03:15 Glucose (Glucose) 16 GM ASDIRECTED PRN PO SEE LABEL COMMENTS 02/07/20 03:15 Home Med (Med Rec Complete!) ASDIRECTED XX 02/07/20 04:30 02/07/20 05:07 DC Insulin Detemir (Levemir Insulin) 10 units BID SC 02/07/20 09:00 02/14/20 12:40 DC 02/13/20 21:39 Insulin Human Lispro (HumaLOG INSULIN) SEE PROTOCOL TABLE AC SC 02/13/20 07:30 02/14/20 17:32 Insulin Human Lispro (HumaLOG INSULIN) SEE PROTOCOL TABLE QHS SC 02/13/20 21:00 Insulin Human Lispro (HumaLOG INSULIN) See Protocol Table Q6H MI 02/07/20 06:00 02/13/20 03:02 DC 02/13/20 00:10 Ketorolac Tromethamine (ToRADol) 15 mg Q6H PRN IV MODERATE PAIN (PS 5-7) 02/10/20 20:00 02/15/20 19:59 02/15/20 09:01 Lactated Ringer's 1,000 ml @ 100 mls/hr Q10H IV 02/10/20 20:00 02/10/20 21:00 DC Lactated Ringer's 1,000 ml @ 100 mls/hr Q10H IV 02/13/20 07:00 02/15/20 14:08 DC 02/15/20 01:34 Lactic Acid (Lac-Hydrin 12% Lotion) apply to feet daily DAILY TOP 02/09/20 09:00 02/15/20 08:58 Lactobacillus Acidophilus (Bacid) 1 ea BIDWM PO 02/14/20 18:00 02/15/20 08:55 Magnesium Sulfate/ Dextrose 1 gm/IV Miscellaneous Supplies 100 ml @ 100 mls/hr Q1H IV 02/11/20 08:00 02/11/20 09:59 DC 02/11/20 09:33 Metoclopramide HCl (REGLAN INJection) 5 mg Q6HP PRN IV NAUSEA OR VOMITING 02/11/20 01:00 02/12/20 16:06 DC Metronidazole (Flagyl) 500 mg Q12H PO 02/09/20 18:00 02/10/20 06:01 DC 02/10/20 06:35 Metronidazole (Flagyl) 500 mg Q8H PO 02/14/20 14:00 02/15/20 05:35 Morphine Sulfate (Morphine Sulfate Inj) 2 mg Q2H PRN IV pain 02/07/20 03:15 02/12/20 16:06 DC 02/09/20 04:14 Neomycin Sulfate (Mycifradin) 1,000 mg Q12H PO 02/09/20 18:00 02/10/20 06:01 DC 02/10/20 06:35 Neomycin/ Polymyxin/ Bacitracin (Neosporin) apply to toe daily, cover w... DAILY TOP 02/09/20 09:00 02/15/20 08:58 Olanzapine (ZyPREXA) 5 mg QHS PO 02/07/20 21:00 02/14/20 20:19 Ondansetron HCl (ZOFRAN INJection) 4 mg Q4HP PRN IV NAUSEA OR VOMITING 02/07/20 03:15 02/07/20 21:58 Ondansetron HCl (ZOFRAN INJection) 4 mg Q4HP PRN IV NAUSEA OR VOMITING 02/10/20 20:00 02/10/20 20:15 DC Oxycodone HCl (Roxicodone, Oxyir) 5 mg Q4HP PRN PO SEVERE PAIN (PS 8-10) 02/10/20 20:00 02/13/20 10:05 Oxycodone/ Acetaminophen (Percocet 5mg/ 325mg Tablet) 1 tab ASDIRECTED PRN PO PAIN LEVEL 1-4 02/10/20 20:00 02/10/20 21:00 DC Piperacillin Sod/ Tazobactam Sod 3.375 gm/Dextrose 50 ml @ 50 mls/hr Q6H IV 02/07/20 10:00 02/14/20 10:46 DC 02/14/20 09:27 Potassium Chloride 20 meq/ Dextrose/Lactated Ringer's 1,010 ml @ 100 mls/hr Q10H6M IV 02/08/20 13:00 02/09/20 11:50 DC 02/09/20 02:04 Potassium Chloride 40 meq/ Lactated Ringer's 1,020 ml @ 100 mls/hr [id number] IV 02/07/20 04:00 02/08/20 11:12 DC 02/08/20 09:22 Vitamin D (Drisdol) 50,000 units Tu@09 PO 02/07/20 09:00 02/14/20 09:27 Allergies Coded Allergies: No Known Allergies (Unverified , 04/15/17) Liset Grissom MD Feb 15, 2020 15:11
--- NOTE | 2020-02-15 17:14 | REP ---
INDICATION: hyperthyroidism, new dx. Partial thyroidectomy. COMPARISON: None. TECHNIQUE: Real-time sonographic evaluation of thyroid performed. FINDINGS: Right lobe of the thyroid measures 1.8 x 1.2 x 1.1 cm, presumably status post partial thyroidectomy.. Left lobe measures 4.4 x 2.3 x 1.9 cm. In the left upper pole there is a hyperechoic nodule measuring 1.4 x 1.6 by 1.2 cm. A similar appearing nodule in the lower pole measures 2.4 x 1.7 x 2.4 cm. IMPRESSION: There appears to be residual right thyroid tissue presumably status post partial right thyroidectomy. Two nodules in the left lobe of the thyroid, both solid, the larger of the 2 measures 2.4 cm in maximum diameter. According to ACR TI-RADS criteria, sonographic follow-up is recommended. Recommend follow-up ultrasound in 6 months. <Electronically signed by Ravi Palencia > 02/15/20 [id number]
[2020-02-15] MEDS: OLANZapine 5 MG TAB PO SCH (20:23)
[2020-02-16 02:00] VITALS: BP 114/58
[2020-02-16] MEDS: CIPROFLOXACIN 500MG TABLET PO SCH (05:50)
[2020-02-16] MEDS: metroNIDAZOLE (FLAGYL) 500MG TABLET PO SCH ×2 (05:50→14:49)
[2020-02-16 06:00] VITALS: BP 114/57
--- NOTE | 2020-02-16 07:12 | IPN ---
DATE: 02/14/2020 SUBJECTIVE: The patient overall continues to be afebrile. His white count has dropped nicely this morning to 11.5, however he is still putting out a fair bit of drainage from his David-Yin drain on the right-hand side/the area of perforation. He has been having some diarrheal bowel movements, but he is tolerating his current regular diet. He states he has some minimal pain otherwise. His I.s and O.s are good at this time with good urine output. His JEFFERY drain has some serous/serosanguinous fluid. PHYSICAL EXAMINATION: ABDOMEN: Soft, nontender, nontender. His incisions are healing beautifully. He has a drain in place and it is draining at this time but no other significant abnormalities are appreciated on his abdominal exam. IMPRESSION AND PLAN: 1. GI - patient is tolerating a regular diet. I would recommend continuing him on this. 2. David-Yin drain - unfortunately it is still draining a fair bit of fluid, and I do feel that it is probably reasonable to continue with this, given that it was an abscess, that if the catheter was removed prematurely, he has a higher risk of developing a recurrent abscess, thus I would recommend continuing on with this tube at this time. 3. Activity he can increase his activity without restrictions. QAMAR
--- NOTE | 2020-02-16 07:14 | IPN ---
DATE: 02/15/2020 SUBJECTIVE: The patient continues to make some good progress. He still has quite a bit of drainage from his drain site, but overall is not feeling any nausea, no vomiting, tolerating a regular diet. He has had a slightly decreasing hematocrit but otherwise no other significant complaints at this time. His abdomen is soft, nontender, nondistended. His incisions are healing nicely without erythema, drainage or discharge. The David-Yin drain is putting out a little bit clearer fluid today than it was yesterday but still sanguinous/serosanguinous fluid, a little bit financial services rep than it was yesterday. IMPRESSION AND PLAN: The patient is making some slow but progressive improvements. Fortunately he has been afebrile but he continues with a JEFFERY output that is relatively significant at this time. I would continue with his JEFFERY for right now. Dr. Cleveland will be back tomorrow, but otherwise from my standpoint, no other surgical issues are pending at this time. He does complain of some diarrhea yesterday although there is less recorded overnight and he states that it has not been as bad this morning, so we will just see how he does without starting him on any anti-diarrheal medications. The diarrhea also could be secondary to the antibiotics he is currently on. He is on some lactobacillus and that may be assisting with his overall general issues. QAMAR
[2020-02-16] MEDS: HumaLOG INSULIN (NovoLOG) PER UNIT SC SCH ×4 (07:30→21:00)
[2020-02-16 07:34] LABS: HEMATOCRIT 38.3 % (42.0-52.0); HEMOGLOBIN 12.8 g/dl (13.5-17.5); MEAN CORPUSCULAR HEMOGLOBIN 29.4 pg (27.0-33.0); MEAN CORPUSCULAR HGB CONC 33.4 g/dl (32.0-36.5); MEAN CORPUSCULAR VOLUME 87.8 fl (80.0-96.0); PLATELET COUNT, AUTOMATED 380 10^3/uL (150-450); RED BLOOD COUNT 4.36 10^6/uL (4.30-6.10); WHITE BLOOD COUNT 16.5 10^3/uL (4.0-10.0)
[2020-02-16 08:22] LABS: BLOOD UREA NITROGEN 18 MG/DL (7-18); CALCIUM LEVEL 8.3 MG/DL (8.8-10.2); CARBON DIOXIDE LEVEL 23 MEQ/L (21-32); CHLORIDE LEVEL 107 MEQ/L (98-107); CREATININE FOR GFR 1.13 MG/DL (0.70-1.30); GLOMERULAR FILTRATION RATE > 60.0 (>49); GLUCOSE, FASTING 153 MG/DL (70-100); POTASSIUM SERUM 4.2 MEQ/L (3.5-5.1); SODIUM LEVEL 135 MEQ/L (136-145)
[2020-02-16] MEDS: CALCIUM CARB SUSP 1250MG/5ML UNIT DOSE CUP PO SCH ×3 (09:32→20:17)
[2020-02-16] MEDS: LACTOBACILLUS ACIDOPHILUS CAP (BACID) PO SCH ×2 (09:33→18:10)
[2020-02-16] MEDS: GABAPENTIN 300 MG CAP PO SCH ×2 (09:33→20:17)
[2020-02-16] MEDS: LACTIC ACID 12% LOTION 225 GM BTL TOP SCH (09:33)
[2020-02-16] MEDS: NEOSPORIN TOP OINT 15GM TOP SCH (09:33)
[2020-02-16 14:00] VITALS: BP 124/63
--- NOTE | 2020-02-16 16:43 | IPNPDOC ---
Date Seen The patient was seen on 02/16/20. Progress Note SUBJECTIVE: POD#6 after hemicolectomy. JEFFERY drain still having good o/p, f/u surgery recommendation. Discussed results of adenocarcinoma, mod. differentiated with patient who has questions for surgery. no increased abd pain despite incr WBC, Dr. Cleveland suggested d/c labs and abx. completely. Tolerating diet, PO abx. Denies lightheadedness, dizziness, n/v/d, chest pain, SOB, palpitations. OBJECTIVE: PHYSICAL EXAMINATION: VITAL SIGNS: please see below General: NAD, resting in bed HEENT: PERRLA, EOMI, sclerae clear Neck: supple, normal ROM, no JVD Respiratory: lungs CTAB, no wheeze, no rales, no crackles CVS: RRR, normal S1, S2, no murmurs Abdo: JEFFERY drain in place with serosanguinous fluid , laparoscopic surgical site dressings CDI. Abdo soft, mildly tender to palpation diffusely, moreso in right upper quadrant Extremities: no edema, no atrophy MSK: debrided R hallus nail. Neuro: no focal neuro deficits, moving all 4 extremities, CN2-12 intact. Strength 5/5 in all 4 extremities. No nystagmus. Psych: calm, cooperative, AAO x 3 LABORATORY DATA, IMAGING STUDIES, MICROBIOLOGY: Please see below. ASSESSMENT AND PLAN: 60-year-old male with a history of IDDM, hypertension, hypothyroidism and COPD, who presented to the ED with vomiting, abdominal pain and multiple episodes of syncope after diarrhea. CT of the abdomen is revealed an apple core lesion in proximal ascending colon highly suspicious for neoplasm with a high-grade partial bowel obstruction at the point of the lesion. General surgery was consulted, Dr. Cleveland is following. POD#5 for hemicolectomy. PROBLEMS: #Bowel obstruction 2/2 colon mass, POD#6 s/p hemicolectomy. -Decreased amount of bowel movements, improved after d/c IV abx -Pathology: likely adenocarcinoma, mod differentiated. Peritumoral abscess i dentified. 13 LN no tumor present. -Afebrile. WBC incr further to 16.5 after previously trending down -Tolerating regular diet. -C/w Morphine, Zofran. Per surgery, d/c cipro, flagyl PO -Surgery,Dr. Cleveland: Will discuss with patient about removing drain possibly. In regards to new diagnosis of possible adenocarcinoma, MMR deficiency testing, KRAS mutation, NRAS and BRAF V600E mutation testing pending. Surgery states he would suggest having patient f/u as o/p with heme/onc. #Acute blood loss anemia -No s/s of bleeding -Hgb stable. -CBC regularly #Hypocalcemia -ionized Ca++ 4.2. Vit D 10.2. TSH 0.02. -C/w calcium carbonate TID #Low Vit D -Vit D level 10.2. -C/w Vit D 50,000 units qweekly. #IDDM. -Hypoglycemia resolved after d/c levemir BID (home dose 30 units qdaily, 25 units qhs) -C/w ISS. FSBS AC & HS, diet -Hypoglycemia precautions. #Hypothyroidism, not on home synthroid -Asymptomatic -TSH 0.02. FT4 1.54. -F/u thyroid US #COPD -Stable. -Albuterol prn #R ector capellan nail -Dr. Pinto performed debridement. -Neosporin. -F/u podiatry clinic 2 months. #Schizophrenia. -Stable. - c/w olanzapine, venlafaxine #DVT ppx: -SCDs Resolved issues: #Hypotension likely 2/2 to decreased PO intake. #Syncope likely vasovagal given profound vomitus. #Lactic acidosis 2/2 to dehydration. #GIUSEPPE likely 2/2 to dehydration. DISPOSITION: DC home once medically cleared by surgery. VS, I&O, 24H, Fishbone Vital Signs/I&O Vital Signs Date Time Temp Pulse Resp B/P (MAP) Pulse Ox O2 Delivery O2 Flow Rate FiO2 02/16/20 14:00 98.6 59 16 124/63 (83) 98 Room Air 02/11/20 22:00 2.0 I&O- Last 24 Hours up to 6 AM 02/16/20 06:00 Intake Total 3310 ml Output Total 1150 ml Balance 2160 ml Laboratory Data 24H LABS Laboratory Tests 2 02/15/20 17:02: Bedside Glucose (Misc Panel) 99 02/15/20 20:17: Bedside Glucose (Misc Panel) 115 02/16/20 07:12: Nucleated Red Blood Cells % (auto) 0.0, Anion Gap 5L, Glomerular Filtration Rate > 60.0, Calcium Level 8.3L 02/16/20 11:56: Bedside Glucose (Misc Panel) 155H CBC/BMP Laboratory Tests 02/16/20 07:12 Microbiology Microbiology 02/16/20 Blood Culture, Received Pending 02/16/20 Blood Culture, Received Pending Current Medications Current Medications Medications (Trade) Dose Ordered Sig/Martha Route PRN Reason Start Time Stop Time Status Last Admin Dose Admin Acetaminophen (Tylenol Tab) 650 mg Q6HP PRN PO PAIN / FEVER 02/11/20 06:00 02/15/20 09:02 Albuterol Sulfate (Proventil, Ventolin Hfa) 2 puff Q4HP PRN INH SHORTNESS OF BREATH 02/07/20 07:15 Amlodipine Besylate (Norvasc) 2.5 mg DAILY PO 02/07/20 09:00 02/14/20 12:40 DC 02/12/20 09:06 Calcium Carbonate (Calcium Carbonate) 1,250 mg TID PO 02/07/20 16:00 02/16/20 09:32 Ciprofloxacin (Cipro) 500 mg BID@06,18 PO 02/14/20 18:00 02/16/20 05:50 Dextrose (Dextrose 50%) 25 ml ASDIRECTED PRN IV SEE LABEL COMMENTS 02/07/20 03:15 Dextrose/Lactated Ringer's 1,000 ml @ 60 mls/hr [id number] IV 02/09/20 12:00 02/12/20 16:06 DC 02/12/20 04:59 Fentanyl Citrate (Sublimaze) 25 mcg Q5MP PRN IV PAIN LEVEL 5-10 02/10/20 20:00 02/10/20 21:00 DC Gabapentin (Neurontin) 600 mg BID PO 02/07/20 09:00 02/16/20 09:33 Glucagon (Glucagon) 1 mg ASDIRECTED PRN SC SEE LABEL COMMENTS 02/07/20 03:15 Glucose (Glucose) 16 GM ASDIRECTED PRN PO SEE LABEL COMMENTS 02/07/20 03:15 Home Med (Med Rec Complete!) ASDIRECTED XX 02/07/20 04:30 02/07/20 05:07 DC Insulin Detemir (Levemir Insulin) 10 units BID SC 02/07/20 09:00 02/14/20 12:40 DC 02/13/20 21:39 Insulin Human Lispro (HumaLOG INSULIN) SEE PROTOCOL TABLE AC CO 02/13/20 07:30 02/14/20 17:32 Insulin Human Lispro (HumaLOG INSULIN) SEE PROTOCOL TABLE QHS CO 02/13/20 21:00 Insulin Human Lispro (HumaLOG INSULIN) See Protocol Table Q6H CO 02/07/20 06:00 02/13/20 03:02 DC 02/13/20 00:10 Ketorolac Tromethamine (ToRADol) 15 mg Q6H PRN IV MODERATE PAIN (PS 5-7) 02/10/20 20:00 02/15/20 19:59 DC 02/15/20 09:01 Lactated Ringer's 1,000 ml @ 100 mls/hr Q10H IV 02/10/20 20:00 02/10/20 21:00 DC Lactated Ringer's 1,000 ml @ 100 mls/hr Q10H IV 02/13/20 07:00 02/15/20 14:08 DC 02/15/20 01:34 Lactic Acid (Lac-Hydrin 12% Lotion) apply to feet daily DAILY TOP 02/09/20 09:00 02/16/20 09:33 Lactobacillus Acidophilus (Bacid) 1 ea BIDWM PO 02/14/20 18:00 02/16/20 09:33 Magnesium Sulfate/ Dextrose 1 gm/IV Miscellaneous Supplies 100 ml @ 100 mls/hr Q1H IV 02/11/20 08:00 02/11/20 09:59 DC 02/11/20 09:33 Metoclopramide HCl (REGLAN INJection) 5 mg Q6HP PRN IV NAUSEA OR VOMITING 02/11/20 01:00 02/12/20 16:06 DC Metronidazole (Flagyl) 500 mg Q12H PO 02/09/20 18:00 02/10/20 06:01 DC 02/10/20 06:35 Metronidazole (Flagyl) 500 mg Q8H PO 02/14/20 14:00 02/16/20 14:49 Morphine Sulfate (Morphine Sulfate Inj) 2 mg Q2H PRN IV pain 02/07/20 03:15 02/12/20 16:06 DC 02/09/20 04:14 Neomycin Sulfate (Mycifradin) 1,000 mg Q12H PO 02/09/20 18:00 02/10/20 06:01 DC 02/10/20 06:35 Neomycin/ Polymyxin/ Bacitracin (Neosporin) apply to toe daily, cover w... DAILY TOP 02/09/20 09:00 02/16/20 09:33 Olanzapine (ZyPREXA) 5 mg QHS PO 02/07/20 21:00 02/15/20 20:23 Ondansetron HCl (ZOFRAN INJection) 4 mg Q4HP PRN IV NAUSEA OR VOMITING 02/07/20 03:15 02/07/20 21:58 Ondansetron HCl (ZOFRAN INJection) 4 mg Q4HP PRN IV NAUSEA OR VOMITING 02/10/20 20:00 02/10/20 20:15 DC Oxycodone HCl (Roxicodone, Oxyir) 5 mg Q4HP PRN PO SEVERE PAIN (PS 8-10) 02/10/20 20:00 02/13/20 10:05 Oxycodone/ Acetaminophen (Percocet 5mg/ 325mg Tablet) 1 tab ASDIRECTED PRN PO PAIN LEVEL 1-4 02/10/20 20:00 02/10/20 21:00 DC Piperacillin Sod/ Tazobactam Sod 3.375 gm/Dextrose 50 ml @ 50 mls/hr Q6H IV 02/07/20 10:00 02/14/20 10:46 DC 02/14/20 09:27 Potassium Chloride 20 meq/ Dextrose/Lactated Ringer's 1,010 ml @ 100 mls/hr Q10H6M IV 02/08/20 13:00 02/09/20 11:50 DC 02/09/20 02:04 Potassium Chloride 40 meq/ Lactated Ringer's 1,020 ml @ 100 mls/hr [id number] IV 02/07/20 04:00 02/08/20 11:12 DC 02/08/20 09:22 Vitamin D (Drisdol) 50,000 units Tu@09 PO 02/07/20 09:00 02/14/20 09:27 Allergies Coded Allergies: No Known Allergies (Unverified , 04/15/17) Liset Grissom MD Feb 16, 2020 16:43
[2020-02-16] MEDS: oxyCODONE 5MG TAB PO PRN (18:10)
[2020-02-16] MEDS: ACETAMINOPHEN TAB 650MG DOSE (2X325MG) PO PRN (18:10)
[2020-02-16] MEDS: OLANZapine 5 MG TAB PO SCH (20:17)
[2020-02-16 22:00] VITALS: BP 109/61
[2020-02-17] MEDS: oxyCODONE 5MG TAB PO PRN ×2 (05:04→09:26)
[2020-02-17 06:00] VITALS: BP 115/61
[2020-02-17 07:02] LABS: HEMATOCRIT 35.3 % (42.0-52.0); HEMOGLOBIN 11.7 g/dl (13.5-17.5); MEAN CORPUSCULAR HEMOGLOBIN 28.6 pg (27.0-33.0); MEAN CORPUSCULAR HGB CONC 33.1 g/dl (32.0-36.5); MEAN CORPUSCULAR VOLUME 86.3 fl (80.0-96.0); PLATELET COUNT, AUTOMATED 396 10^3/uL (150-450); RED BLOOD COUNT 4.09 10^6/uL (4.30-6.10); WHITE BLOOD COUNT 16.9 10^3/uL (4.0-10.0)
[2020-02-17 07:34] LABS: ALBUMIN 2.1 GM/DL (3.2-5.2); ALT/SGPT 25 U/L (12-78); BILIRUBIN,TOTAL 0.3 MG/DL (0.2-1.0); BLOOD UREA NITROGEN 19 MG/DL (7-18); CARBON DIOXIDE LEVEL 23 MEQ/L (21-32); CHLORIDE LEVEL 105 MEQ/L (98-107); CREATININE FOR GFR 1.19 MG/DL (0.70-1.30); GLOMERULAR FILTRATION RATE > 60.0 (>49); GLUCOSE, FASTING 118 MG/DL (70-100); POTASSIUM SERUM 4.4 MEQ/L (3.5-5.1); SODIUM LEVEL 135 MEQ/L (136-145); TOTAL PROTEIN 5.7 GM/DL (6.4-8.2)
--- NOTE | 2020-02-17 07:38 | IPN ---
DATE: 02/16/2020 HISTORY: The patient is now postop day number six from a laparoscopic right hemicolectomy for an obstructing right colon cancer with a pericolonic abscess. He has been generally doing quite well. His drain remains in place and the amount from the drain had increased significantly over the last 2 days. He remains on antibiotics. Vital signs show that he has been afebrile over the past 24 hours. His pulse is in the upper 40s to high 50s. His blood pressure is good and the pulse oximetry on room air is excellent. Intake and output show that yesterday he had 3,160 in with 1,200 out. The Hospitalist has been giving IV fluids for reasons not clear to me. Urine output yesterday was 950 with 260 from his drain. PHYSICAL EXAMINATION: GENERAL APPEARANCE: Patient is awake and alert. He appears quite comfortable. He denies any significant pain. HEART: Regular rhythm that is slow. LUNGS: Clear. ABDOMEN: Healing incisions that are clean without evidence of infection. He has active bowel sounds. The abdomen is soft without any significant tenderness. His drain has a few small clots in the tubing and as these were cleared, he has some very light pink fluid draining. LABORATORY STUDIES: Today white count of 16, hemoglobin of 13, hematocrit 38 and a platelet count of 380,000. Chemistries show normal electrolytes, BUN of 18, creatinine 1.1, and a glucose of 153. 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 A peritumoral abscess was identified. There were 13 lymph nodes identified with no tumor present. There was no evidence of perineural or lymph or vascular invasion. Margins were clear. IMPRESSION: Patient is doing very well now postop day six from his surgery. His drain output appears to have diminished and he remains afebrile. His white blood cell count is minimally elevated today with no other signs of an infection. PLAN: 1. The patients drain will be removed today. 2. He remains on a regular diet. 3. He has actually excellent pathology and will probably require no additional therapy and can see Oncology on an outpatient basis. 4. I believe his antibiotics could be stopped today. 5. He should be ready for discharge soon. QAMAR
[2020-02-17] MEDS: GABAPENTIN 300 MG CAP PO SCH (08:16)
[2020-02-17] MEDS: CALCIUM CARB SUSP 1250MG/5ML UNIT DOSE CUP PO SCH (08:16)
[2020-02-17] MEDS: HumaLOG INSULIN (NovoLOG) PER UNIT SC SCH ×2 (08:16→12:40)
[2020-02-17] MEDS: NEOSPORIN TOP OINT 15GM TOP SCH (08:17)
[2020-02-17] MEDS: LACTOBACILLUS ACIDOPHILUS CAP (BACID) PO SCH (08:17)
[2020-02-17] MEDS: LACTIC ACID 12% LOTION 225 GM BTL TOP SCH (08:17)
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
== END 2020-02-17 14:40 | disposition home health service (06) | DRG 329 ==
LOC: M ED 23:51 → M ED INP 02-07 03:11 → ENRESERV 02-07 11:19 → M MSPAV 02-07 12:00
PROVIDERS: ADMIT Internal Medicine; ATTEND Internal Medicine
PROC: 0DBL4ZZ Excision of Transverse Colon, Percutaneous Endoscopic Approach (ICD-10-PCS; 2020-02-10)
PROC: 8E0W4CZ Robotic Assisted Procedure of Trunk Region, Percutaneous Endoscopic Approach (ICD-10-PCS; 2020-02-10)
PROC: 0DTK4ZZ Resection of Ascending Colon, Percutaneous Endoscopic Approach (ICD-10-PCS; principal; 2020-02-10 13:45)
DX: C18.2 Malignant neoplasm of ascending colon (principal); K65.1 Peritoneal abscess; E87.2 Acidosis; N17.9 Acute kidney failure, unspecified; D62 Acute posthemorrhagic anemia; R55 Syncope and collapse; E87.6 Hypokalemia; E11.649 Type 2 diabetes mellitus with hypoglycemia without coma; I10 Essential (primary) hypertension; J44.9 Chronic obstructive pulmonary disease, unspecified; E03.9 Hypothyroidism, unspecified; F31.9 Bipolar disorder, unspecified; F17.200 Nicotine dependence, unspecified, uncomplicated; I95.9 Hypotension, unspecified; E04.1 Nontoxic single thyroid nodule; E83.51 Hypocalcemia; E55.9 Vitamin D deficiency, unspecified; Z79.899 Other long term (current) drug therapy; Z79.82 Long term (current) use of aspirin; F29 Unspecified psychosis not due to a substance or known physiological condition; L60.0 Ingrowing nail

== ENCOUNTER → 2020-02-27 | Outpatient (REF) | payer MEDICARE, MEDICAID ==
[~2020-02-27] MED LIST changes: +ASPI-161 PO; +JARD1TAB PO; +LISI2.5T2 PO; +METF-839 PO; +OXYC10TA12 PO; +PATIENT COMMENT
[2020-02-27 18:12] LABS: BASO # 0.1 10^3/uL (0.0-0.2); BASO % 0.6 % (0.0-1.0); EOS # 0.3 10^3/uL (0.0-0.5); EOS % 2.2 % (0.0-3.0); HEMATOCRIT 41.1 % (42.0-52.0); HEMOGLOBIN 13.1 g/dl (13.5-17.5); LYMPH # 3.1 10^3/uL (1.5-5.0); LYMPH % 21.1 % (24.0-44.0); MEAN CORPUSCULAR HGB CONC 31.9 g/dl (32.0-36.5); MEAN CORPUSCULAR VOLUME 90.9 fl (80.0-96.0); MONO # 0.9 10^3/uL (0.0-0.8); MONO % 5.9 % (0.0-5.0); NEUTROPHILS # 10.2 10^3/uL (1.5-8.5); NEUTROPHILS % 69.3 % (36.0-66.0); PLATELET COUNT, AUTOMATED 528 10^3/uL (150-450); RED BLOOD COUNT 4.52 10^6/uL (4.30-6.10); WHITE BLOOD COUNT 14.7 10^3/uL (4.0-10.0)
[2020-02-27 18:46] LABS: ALBUMIN 3.1 GM/DL (3.2-5.2); BILIRUBIN,TOTAL 0.3 MG/DL (0.2-1.0); CALCIUM LEVEL 9.2 MG/DL (8.8-10.2); CREATININE FOR GFR 1.46 MG/DL (0.70-1.30); GLOMERULAR FILTRATION RATE 52.4 (>49); THYROID STIMULATING HORMONE 1.32 uIU/ML (0.358-3.740); TOTAL PROTEIN 7.5 GM/DL (6.4-8.2)
== END ==
LOC: M SFHCPLAZ 15:18
PROVIDERS: ATTEND Physician Assistant Medical
DX: D49.0 Neoplasm of unspecified behavior of digestive system (principal); E03.9 Hypothyroidism, unspecified; D50.8 Other iron deficiency anemias; K65.1 Peritoneal abscess; Z23 Encounter for immunization
CPT/HCPCS: 36415; 80053; 82728; 83540; 84439; 84443; 85025; 90682; 99495; G0008; G0463

== ENCOUNTER → 2020-03-26 | Outpatient (REF) | payer MEDICARE, MEDICAID ==
[2020-03-26 14:54] LABS: HEMOGLOBIN A1c 6.1 %
[2020-03-26 15:17] LABS: ALBUMIN 3.6 GM/DL (3.2-5.2); ALT/SGPT 17 U/L (12-78); BILIRUBIN,TOTAL 0.4 MG/DL (0.2-1.0); BLOOD UREA NITROGEN 15 MG/DL (7-18); CALCIUM LEVEL 9.5 MG/DL (8.8-10.2); CARBON DIOXIDE LEVEL 29 MEQ/L (21-32); CHLORIDE LEVEL 106 MEQ/L (98-107); CHOLESTEROL LEVEL 119 MG/DL (<200); CHOLESTEROL RISK RATIO 3.305 (<5); CPK CREATINE PHOSPHOKINASE 88 U/L (39-308); CREATININE FOR GFR 1.26 MG/DL (0.70-1.30); FERRITIN 79 NG/ML (26-388); GLOMERULAR FILTRATION RATE > 60.0 (>49); GLUCOSE, FASTING 104 MG/DL (70-100); HDL CHOLESTEROL 36 MG/DL (>40); IRON (FE) 57 UG/DL (65-175); LDL CHOLESTEROL 51 MG/DL (<100); NON-HDL-C 83 MG/DL; POTASSIUM SERUM 4.3 MEQ/L (3.5-5.1); SODIUM LEVEL 139 MEQ/L (136-145); TOTAL PROTEIN 7.4 GM/DL (6.4-8.2); TRIGLYCERIDES LEVEL 161 MG/DL (<150)
== END ==
LOC: M SFHCPLAZ 11:08
PROVIDERS: ATTEND Physician Assistant Medical
DX: D50.8 Other iron deficiency anemias (principal); E11.42 Type 2 diabetes mellitus with diabetic polyneuropathy; N18.30 Chronic kidney disease, stage 3 unspecified; E78.2 Mixed hyperlipidemia
CPT/HCPCS: 36415; 80053; 80061; 82550; 82728; 83036; 83540; G0463

== ENCOUNTER 2020-06-13 18:10 | Emergency (ER) | payer MEDICARE, MEDICAID ==
[~2020-06-13] VITALS: Ht 170.2 cm; Wt 70.9 kg
[~2020-06-13 18:10] MED LIST changes: -LISI-542 PO; +LISI-898 PO
--- NOTE | 2020-06-13 18:52 | REPVR ---
PROCEDURE INFORMATION: Exam: CT Head Without Contrast Exam date and time: 06/13/2020 6:39 PM Age: 60 years old Clinical indication: Injury or trauma; Fall; Blunt trauma (contusions or hematomas); Consciousness not specified TECHNIQUE: Imaging protocol: Computed tomography of the head without contrast. Radiation optimization: All CT scans at this facility use at least one of these dose optimization techniques: automated exposure control; mA and/or kV adjustment per patient size (includes targeted exams where dose is matched to clinical indication); or iterative reconstruction. COMPARISON: CT Head without contrast 02/07/2020 2:03 AM FINDINGS: Brain: There is mild parenchymal volume loss. Mild white matter changes are demonstrated consistent with small vessel ischemic changes. Cerebral ventricles: No significant ventriculomegaly. Bones/joints: Unremarkable. No acute fracture. Paranasal sinuses: Visualized sinuses are unremarkable. No fluid levels. Mastoid air cells: Visualized mastoid air cells are well aerated. Soft tissues: Unremarkable. IMPRESSION: 1. There is mild parenchymal volume loss. Mild white matter changes are demonstrated consistent with small vessel ischemic changes. 2. No acute intracranial findings. Electronically signed by: Satish Hanna On 06/13/2020 18:52:58 PM
--- NOTE | 2020-06-13 18:58 | REPVR ---
PROCEDURE INFORMATION: Exam: CT Cervical Spine Without Contrast Exam date and time: 06/13/2020 6:39 PM Age: 60 years old Clinical indication: Injury or trauma; Fall; Blunt trauma TECHNIQUE: Imaging protocol: Computed tomography images of the cervical spine without contrast. Radiation optimization: All CT scans at this facility use at least one of these dose optimization techniques: automated exposure control; mA and/or kV adjustment per patient size (includes targeted exams where dose is matched to clinical indication); or iterative reconstruction. COMPARISON: CT Spine,cervical w/o contrast 02/07/2020 2:03 AM FINDINGS: Bones/joints: No acute fracture. Normal alignment. Discs/Spinal canal/Neural foramina: There are degenerative changes demonstrated in the atlantoaxial joint at C1-C2 with osteophytes and joint space narrowing. The transverse ligament is normal. Disc space narrowing at C5-C6 with intervertebral osteophytes. Moderate foraminal narrowing on the left at C4, severe foraminal narrowing on the left and mild foraminal narrowing on the right at C5, bilateral moderate to severe foraminal narrowing at C6 secondary to uncinate joint hypertrophic changes. Lungs: Lung apices are normal. Soft tissues: See "Discs/Spinal canal/Neural foramina" finding. IMPRESSION: Degenerative spondylosis. No acute findings. Electronically signed by: Satish Hanna On 06/13/2020 18:58:31 PM
[2020-06-13] MEDS ORDERED: DERMABOND TOPICAL SKIN ADHESIVE TOP ONE (20:00)
[2020-06-13 20:23] VITALS: BP 121/58
== END 2020-06-13 20:30 | disposition home or self-care (01) ==
LOC: M ED 18:10
DX: S01.81XA Laceration without foreign body of other part of head, initial encounter (principal); W01.0XXA Fall on same level from slipping, tripping and stumbling without subsequent striking against object, initial encounter; Y92.018 Other place in single-family (private) house as the place of occurrence of the external cause; I10 Essential (primary) hypertension; E11.9 Type 2 diabetes mellitus without complications; E03.9 Hypothyroidism, unspecified; E78.5 Hyperlipidemia, unspecified; F20.9 Schizophrenia, unspecified; Z79.899 Other long term (current) drug therapy; Z79.84 Long term (current) use of oral hypoglycemic drugs; Z79.82 Long term (current) use of aspirin

== ENCOUNTER → 2020-07-05 | Outpatient (REF) | payer MEDICARE, MEDICAID ==
[2020-07-05 14:14] LABS: BASO # 0.1 10^3/uL (0.0-0.2); BASO % 0.7 % (0.0-1.0); EOS # 0.2 10^3/uL (0.0-0.5); EOS % 2.1 % (0.0-3.0); HEMOGLOBIN 15.5 g/dl (13.5-17.5); LYMPH # 2.9 10^3/uL (1.5-5.0); LYMPH % 25.3 % (24.0-44.0); MEAN CORPUSCULAR HEMOGLOBIN 29.3 pg (27.0-33.0); MEAN CORPUSCULAR VOLUME 88.8 fl (80.0-96.0); MONO % 8.5 % (2.0-8.0); NEUTROPHILS # 7.2 10^3/uL (1.5-8.5); PLATELET COUNT, AUTOMATED 226 10^3/uL (150-450); RED BLOOD COUNT 5.29 10^6/uL (4.30-6.10); WHITE BLOOD COUNT 11.4 10^3/uL (4.0-10.0)
[2020-07-05 14:23] LABS: INR 0.97
[2020-07-05 14:24] LABS: PARTIAL THROMBOPLASTIN TIME 27.7 SECONDS (24.2-38.5)
[2020-07-05 14:37] LABS: ALBUMIN 4.1 GM/DL (3.2-5.2); BILIRUBIN,TOTAL 0.5 MG/DL (0.2-1.0); CALCIUM LEVEL 9.6 MG/DL (8.8-10.2); CREATININE FOR GFR 1.37 MG/DL (0.70-1.30); GLOMERULAR FILTRATION RATE 56.4 (>49); PERCENT SATURATION 27.4 % (19.7-50.0); POTASSIUM SERUM 4.5 MEQ/L (3.5-5.1); TOTAL PROTEIN 7.7 GM/DL (6.4-8.2)
== END ==
LOC: M SFHCPLAZ 11:38
PROVIDERS: ATTEND Family Medicine
DX: N18.30 Chronic kidney disease, stage 3 unspecified (principal); D50.8 Other iron deficiency anemias; E03.9 Hypothyroidism, unspecified
CPT/HCPCS: 36415; 80053; 82607; 82728; 83550; 85025; 85610; 85730; G0463

== ENCOUNTER → 2020-07-12 | Outpatient (CLI) | payer OTHER, MEDICAID | LOC: M LABSMTC 10:16 | PROVIDERS: ATTEND Anesthesiology | DX: Z01.812 Encounter for preprocedural laboratory examination (principal); Z20.822 Contact with and (suspected) exposure to COVID-19 ==

== ENCOUNTER 2020-07-17 06:40 | Day surgery (SDC) | payer MEDICARE, MEDICAID ==
[~2020-07-17] VITALS: Ht 175.3 cm; Wt 66.7 kg
[2020-07-17] MEDS ORDERED: NS 1,000 ML IV ONE (07:00)
[2020-07-17] MEDS ORDERED: LIDOCAINE 2% 100MG/5ML SDV (FOR ANES.) As Ordered ONE (07:02)
[2020-07-17] MEDS ORDERED: propofoL 200 MG/20 ML VIAL As Ordered ONE (07:02)
[2020-07-17] MEDS ORDERED: ePHEDrine SULFATE 25 MG/5 ML(5MG/ML) SYRINGE As Ordered ONE (07:49)
--- NOTE | 2020-07-17 08:02 | ROOR ---
Patient Name: Jona Abreu Procedure Date: 07/17/2020 7:30 AM Date of : 1960 Age: 60 Room: [facility] Gender: Male Note Status: Finalized Procedure: Colonoscopy Indications: This is the patient's first colonoscopy, High risk colon cancer surveillance: Personal history of colon cancer. Patient had a right hemicolectomy for an obstructing right colon cancer in Jan 2020. Providers: Meng Cleveland MD Referring MD: Mary CRUZ Requesting Provider: Medicines: Monitored Anesthesia Care Complications: No immediate complications. Procedure: Pre-Anesthesia Assessment: - Prior to the procedure, a History and Physical was performed, and patient medications and allergies were reviewed. The patient is competent. The risks and benefits of the procedure and the sedation options and risks were discussed with the patient. All questions were answered and informed consent was obtained. Patient identification and proposed procedure were verified by the physician, the nurse and the anesthesiologist in the procedure room. Mental Status Examination: alert and oriented. Airway Examination: normal oropharyngeal airway and neck mobility. Prophylactic Antibiotics: The patient does not require prophylactic antibiotics. Prior Anticoagulants: The patient has taken no previous anticoagulant or antiplatelet agents. ASA Grade Assessment: II - A patient with mild systemic disease. After reviewing the risks and benefits, the patient was deemed in satisfactory condition to undergo the procedure. The anesthesia plan was to use monitored anesthesia care (MAC). Immediately prior to administration of medications, the patient was re-assessed for adequacy to receive sedatives. The heart rate, respiratory rate, oxygen saturations, blood pressure, adequacy of pulmonary ventilation, and response to care were monitored throughout the procedure. The physical status of the patient was re-assessed after the procedure. The Colonoscope was introduced through the anus and advanced to the ileocolonic anastomosis. The colonoscopy was performed without difficulty. The patient tolerated the procedure well. The quality of the bowel preparation was excellent. Findings: The perianal and digital rectal examinations were normal. There was evidence of a prior end-to-end ileo-colonic anastomosis in the proximal transverse colon. This was patent and was characterized by healthy appearing mucosa. The anastomosis was traversed. The exam was otherwise without abnormality. Impression: - Patent end-to-end ileo-colonic anastomosis, characterized by healthy appearing mucosa. - The examination was otherwise normal. - No specimens collected. Recommendation: - Discharge patient to home. - Resume previous diet. - Continue present medications. - Repeat colonoscopy in 3 years for surveillance. - Return to endoscopist in 3 years. Procedure Code(s): --- Professional --- 84511, Colonoscopy, flexible; diagnostic, including collection of specimen(s) by brushing or washing, when performed (separate procedure) Diagnosis Code(s): --- Professional --- Z85.038, Personal history of other malignant neoplasm of large intestine Z98.0, Intestinal bypass and anastomosis status CPT copyright 2019 [employer]. All rights reserved. The codes documented in this report are preliminary and upon assistant professor of sociology review may be revised to meet current compliance requirements. Meng Cleveland MD Meng Cleveland MD 07/17/2020 8:01:31 AM Electronically signed by Meng Cleveland MD Number of Addenda: 0 Note Initiated On: 07/17/2020 7:30 AM Estimated Blood Loss: Estimated blood loss: none.
[2020-07-17 08:26] VITALS: BP 121/50
== END 2020-07-17 08:27 | disposition home or self-care (01) ==
LOC: M OPP 06:40
PROVIDERS: ATTEND Surgery
DX: Z85.038 Personal history of other malignant neoplasm of large intestine (principal); Z98.0 Intestinal bypass and anastomosis status; Z08 Encounter for follow-up examination after completed treatment for malignant neoplasm; Z87.891 Personal history of nicotine dependence; Z79.82 Long term (current) use of aspirin; Z79.84 Long term (current) use of oral hypoglycemic drugs; Z79.899 Other long term (current) drug therapy

== ENCOUNTER → 2020-07-20 | Outpatient (CLI) | payer MEDICARE, MEDICAID ==
[~2020-07-20] MED LIST changes: +GASTROGRAFIN SOLUTION 30ML (Q9963) As Ordered ONE
--- NOTE | 2020-07-20 15:16 | REP ---
INDICATION: COLON CA, SURVEILLENCE. COMPARISON: Chest CT dated 02/07/2020. TECHNIQUE: Chest CT without IV contrast. FINDINGS: There are no lung masses, nodules, infiltrates or pleural effusions. There is no mediastinal or axillary lymphadenopathy. In the absence of IV contrast the study is insensitive for hilar lymph node enlargement. The unenhanced thoracic aorta is unremarkable. Cardiac size is normal. No pericardial effusion. There are no lytic, blastic or destructive skeletal changes. IMPRESSION: There is no evidence of adenopathy, pleural effusion or metastatic disease. <Electronically signed by Ravi Dyson > 07/20/20 [id number]
--- NOTE | 2020-07-20 16:02 | REP ---
INDICATION: COLON CA, SURVEILLENCE. COMPARISON: Abdomen/pelvis CT dated 02/07/2020. TECHNIQUE: Abdomen/pelvis CT without IV contrast but with bowel contrast. FINDINGS: There has been interim partial resection of a portion of the ascending colon. There is now a surgical anastomosis ring in the ascending colon. The previous apple-core lesion is no longer present. There is no evidence of tumor recurrence at the surgical site. The visualized lung [place]orn[place] are unremarkable. The unenhanced hepatic parenchyma is homogeneous. There are tiny calcifications in the gallbladder compatible with small gallbladder calculi. Gallbladder is otherwise unremarkable. The unenhanced pancreas, spleen, adrenals and kidneys are unremarkable. The abdominal aorta is unremarkable. There is no periaortic adenopathy or mass. There is no mesenteric adenopathy or ascites. The bowel and mesentery are unremarkable. There is intraluminal contrast in proximal small bowel loops. The contrast does not reach the distal small bowel loops or colon at the time of scanning. There is a surgical anesthetic suture ring in small bowel loops today also an interval change. Pelvis: The bladder is unremarkable. There is no adenopathy or ascites. The pelvic bowel loops are unremarkable. There are no lytic, blastic or destructive skeletal changes. IMPRESSION: There are postsurgical changes as described. There is no evidence of tumor recurrence, adenopathy, ascites or metastatic disease. The study is somewhat insensitive in the absence of IV contrast. <Electronically signed by Ravi Dyson > 07/20/20 [id number]
== END ==
LOC: M RAD 10:46
PROVIDERS: ATTEND Internal Medicine Hematology & Oncology
DX: Z85.038 Personal history of other malignant neoplasm of large intestine (principal)
CPT/HCPCS: 71250; 74176; Q9963

== ENCOUNTER → 2020-08-02 | Outpatient (REF) | payer MEDICARE, MEDICAID ==
[~2020-08-02] MED LIST changes: -GASTROGRAFIN SOLUTION 30ML (Q9963) As Ordered ONE
[2020-08-02 14:03] LABS: HEMOGLOBIN A1c 6.4 %
== END ==
LOC: M SFHCPLAZ 10:31
PROVIDERS: ATTEND Physician Assistant Medical
DX: E11.42 Type 2 diabetes mellitus with diabetic polyneuropathy (principal)

== ENCOUNTER → 2020-12-05 | Outpatient (CLI) | payer MEDICARE, MEDICAID ==
[~2020-12-05] MED LIST changes: -LISI2.5T2 PO; +LISI2.5T9 PO; +OLAN1TAB16 PO; -OLAN5TAB PO
[2020-12-05 12:16] LABS: BASO # 0.1 10^3/uL (0.0-0.2); BASO % 1.2 % (0.0-1.0); EOS # 0.4 10^3/uL (0.0-0.5); EOS % 3.8 % (0.0-3.0); HEMATOCRIT 48.3 % (42.0-52.0); LYMPH # 3.5 10^3/uL (1.5-5.0); MEAN CORPUSCULAR HEMOGLOBIN 30.7 pg (27.0-33.0); MEAN CORPUSCULAR HGB CONC 33.1 g/dl (32.0-36.5); MEAN CORPUSCULAR VOLUME 92.7 fl (80.0-96.0); MONO # 1.1 10^3/uL (0.0-0.8); MONO % 10.3 % (2.0-8.0); NEUTROPHILS # 5.7 10^3/uL (1.5-8.5); PLATELET COUNT, AUTOMATED 213 10^3/uL (150-450); RED BLOOD COUNT 5.21 10^6/uL (4.30-6.10); WHITE BLOOD COUNT 10.9 10^3/uL (4.0-10.0)
[2020-12-05 12:59] LABS: CREATININE FOR GFR 1.4 MG/DL (0.70-1.30)
[2020-12-05 13:00] LABS: ALBUMIN 3.7 GM/DL (3.2-5.2); BILIRUBIN,TOTAL 0.4 MG/DL (0.2-1.0); CALCIUM LEVEL 9.1 MG/DL (8.8-10.2); TOTAL PROTEIN 8.1 GM/DL (6.4-8.2)
[2020-12-05 13:12] LABS: HEMOGLOBIN A1c 6.1 %
== END ==
LOC: M PLALAB 10:16
PROVIDERS: ATTEND Physician Assistant Medical
DX: D50.8 Other iron deficiency anemias (principal); E11.42 Type 2 diabetes mellitus with diabetic polyneuropathy; N18.30 Chronic kidney disease, stage 3 unspecified

== ENCOUNTER → 2021-04-15 | Outpatient (REF) | payer MEDICARE, MEDICAID | LOC: M SFHCPLAZ 09:15 | PROVIDERS: ATTEND Physician Assistant Medical | DX: E11.42 Type 2 diabetes mellitus with diabetic polyneuropathy (principal); E78.2 Mixed hyperlipidemia; N18.30 Chronic kidney disease, stage 3 unspecified; D50.8 Other iron deficiency anemias; K65.1 Peritoneal abscess; E04.1 Nontoxic single thyroid nodule ==

== ENCOUNTER → 2021-04-15 | Outpatient (CLI) | payer MEDICARE, MEDICAID ==
[2021-04-15 13:45] LABS: BASO # 0.1 10^3/uL (0.0-0.2); BASO % 0.8 % (0.0-1.0); EOS # 0.3 10^3/uL (0.0-0.5); EOS % 2.5 % (0.0-3.0); HEMATOCRIT 49.4 % (42.0-52.0); HEMOGLOBIN 16.3 g/dl (13.5-17.5); LYMPH # 2.6 10^3/uL (1.5-5.0); LYMPH % 20.7 % (24.0-44.0); MEAN CORPUSCULAR HEMOGLOBIN 30.2 pg (27.0-33.0); MEAN CORPUSCULAR VOLUME 91.5 fl (80.0-96.0); MONO # 0.9 10^3/uL (0.0-0.8); MONO % 7.2 % (2.0-8.0); NEUTROPHILS # 8.6 10^3/uL (1.5-8.5); NEUTROPHILS % 68.3 % (36.0-66.0); PLATELET COUNT, AUTOMATED 252 10^3/uL (150-450); WHITE BLOOD COUNT 12.6 10^3/uL (4.0-10.0)
[2021-04-15 14:16] LABS: ALBUMIN 3.9 GM/DL (3.2-5.2); BILIRUBIN,TOTAL 0.5 MG/DL (0.2-1.0); CALCIUM LEVEL 9.4 MG/DL (8.8-10.2); CHOLESTEROL RISK RATIO 5.333 (<5); CREATININE FOR GFR 1.62 MG/DL (0.70-1.30); FREE T4 1.07 NG/DL (0.76-1.46); GLOMERULAR FILTRATION RATE 46.3 (>49); POTASSIUM SERUM 4.6 MEQ/L (3.5-5.1); THYROID STIMULATING HORMONE 0.013 uIU/ML (0.358-3.740); TOTAL PROTEIN 7.7 GM/DL (6.4-8.2)
[2021-04-15 14:26] LABS: HEMOGLOBIN A1c 6.2 %
== END ==
LOC: M PLALAB 09:22
PROVIDERS: ATTEND Physician Assistant Medical
DX: E11.42 Type 2 diabetes mellitus with diabetic polyneuropathy (principal); E78.2 Mixed hyperlipidemia; N18.30 Chronic kidney disease, stage 3 unspecified; D50.8 Other iron deficiency anemias; K65.1 Peritoneal abscess; E04.1 Nontoxic single thyroid nodule

== ENCOUNTER → 2021-04-16 | Outpatient (CLI) | payer MEDICARE, MEDICAID ==
--- NOTE | 2021-04-16 12:05 | REP ---
INDICATION: ABD/PEL ABSCESS, THYROID NODULE. COMPARISON: 07/20/2020 also without contrast TECHNIQUE: Standard helical technique without contrast. This causes exam limitations. FINDINGS: The lung bases are clear. The liver, gallbladder, spleen, pancreas, adrenal glands, and kidneys are unchanged. The abdominal aorta and para-aortic regions are unchanged there is no significant change in appearance of the bowel loops or the mesenteries. There are postoperative changes status quo. There is no evidence of free fluid or free air. There is no evidence of a mass or adenopathy. Bone window technique throughout the exam shows no significant change in appearance of the imaged osseous structures. IMPRESSION: There is no significant change compared to the prior exam. There is cholelithiasis and postoperative change status quo. There is no evidence of acute disease. <Electronically signed by Yonathan Ng > 04/16/21 [id number]
--- NOTE | 2021-04-16 13:36 | REP ---
INDICATION: ABD/PEL ABSCESS, THYROID NODULE. COMPARISON: 02/15/2020 TECHNIQUE: Real-time sonographic evaluation of the thyroid gland with Doppler FINDINGS: The patient is status post partial right thyroidectomy. The thyroid gland is unchanged in size, shape, and echo pattern. The right side measures 1.8 x 1.2 x 0.9 cm and the left measures 4.7 x 2.3 x 2 cm. The nodules seen previously in the left lobe are essentially unchanged. IMPRESSION: No significant change from the prior exam. 2 solid left lobe nodules appear stable. <Electronically signed by Yonathan Ng > 04/16/21 [id number]
== END ==
LOC: M RAD 11:32
PROVIDERS: ATTEND Physician Assistant Medical
DX: K65.1 Peritoneal abscess (principal); E04.1 Nontoxic single thyroid nodule; K80.20 Calculus of gallbladder without cholecystitis without obstruction

== ENCOUNTER → 2021-04-19 | Outpatient (CLI) | payer MEDICARE, MEDICAID ==
[~2021-04-19] MED LIST changes: -LISI-898 PO; +LISI5TAB11 PO
[2021-04-19 13:16] LABS: BASO # 0.1 10^3/uL (0.0-0.2); BASO % 0.9 % (0.0-1.0); EOS # 0.2 10^3/uL (0.0-0.5); EOS % 2.2 % (0.0-3.0); HEMATOCRIT 46.2 % (42.0-52.0); HEMOGLOBIN 15.8 g/dl (13.5-17.5); LYMPH # 2.4 10^3/uL (1.5-5.0); LYMPH % 24.6 % (24.0-44.0); MEAN CORPUSCULAR HEMOGLOBIN 30.6 pg (27.0-33.0); MEAN CORPUSCULAR HGB CONC 34.2 g/dl (32.0-36.5); MEAN CORPUSCULAR VOLUME 89.4 fl (80.0-96.0); NEUTROPHILS # 5.9 10^3/uL (1.5-8.5); NEUTROPHILS % 61.8 % (36.0-66.0); PLATELET COUNT, AUTOMATED 235 10^3/uL (150-450); RED BLOOD COUNT 5.17 10^6/uL (4.30-6.10); WHITE BLOOD COUNT 9.6 10^3/uL (4.0-10.0)
[2021-04-19 13:30] LABS: HEMOGLOBIN A1c 6.1 %
[2021-04-19 13:42] LABS: ALBUMIN 3.7 GM/DL (3.2-5.2); ALT/SGPT 24 U/L (12-78); BILIRUBIN,TOTAL 0.4 MG/DL (0.2-1.0); BLOOD UREA NITROGEN 24 MG/DL (7-18); CALCIUM LEVEL 9.1 MG/DL (8.8-10.2); CARBON DIOXIDE LEVEL 26 MEQ/L (21-32); CHLORIDE LEVEL 109 MEQ/L (98-107); CHOLESTEROL LEVEL 145 MG/DL (<200); CHOLESTEROL RISK RATIO 4.677 (<5); CREATININE FOR GFR 1.52 MG/DL (0.70-1.30); FERRITIN 139 NG/ML (26-388); FREE T4 1.06 NG/DL (0.76-1.46); GLOMERULAR FILTRATION RATE 49.9 (>49); GLUCOSE, FASTING 119 MG/DL (70-100); HDL CHOLESTEROL 31 MG/DL (>40); IRON (FE) 81 UG/DL (65-175); LDL CHOLESTEROL 67 MG/DL (<100); NON-HDL-C 114 MG/DL; POTASSIUM SERUM 4.7 MEQ/L (3.5-5.1); SODIUM LEVEL 139 MEQ/L (136-145); THYROID STIMULATING HORMONE < 0.005 uIU/ML (0.358-3.740); TOTAL PROTEIN 7.3 GM/DL (6.4-8.2); TRIGLYCERIDES LEVEL 237 MG/DL (<150)
[2021-04-19 17:51] LABS: THYROGLOBULIN ANTIBODY > 500.0 U/ML (<60.0); THYROID PEROXIDASE ANTIBODY > 1300.0 U/ML (<60.0)
[2021-04-23 17:11] LABS: THYROID STIMULATING IMMUNOGLOB 4.15 IU/L (0.00-0.55)
== END ==
LOC: M PLALAB 12:02
PROVIDERS: ATTEND Physician Assistant Medical
DX: N18.30 Chronic kidney disease, stage 3 unspecified (principal); D50.8 Other iron deficiency anemias; E11.42 Type 2 diabetes mellitus with diabetic polyneuropathy; E11.22 Type 2 diabetes mellitus with diabetic chronic kidney disease; E78.2 Mixed hyperlipidemia; Z20.822 Contact with and (suspected) exposure to COVID-19
CPT/HCPCS: 36415; 80053; 80061; 82550; 82728; 83036; 83519; 83540; 84439; 84443; 84445; 85025; 86376; 86800; C9803; U0003

== ENCOUNTER → 2021-04-19 | Outpatient (CLI) | payer MEDICARE, MEDICAID | LOC: M LABSMTC 11:58 | PROVIDERS: ATTEND Pediatrics | DX: Z20.822 Contact with and (suspected) exposure to COVID-19 (principal) ==

== ENCOUNTER → 2021-05-21 | Outpatient (CLI) | payer MEDICARE, MEDICAID ==
[~2021-05-21] MED LIST changes: +ADVA115A INH; +LIDOCAINE 1% MDV 20ML VIAL As Ordered ONE
[2021-05-21 10:55] VITALS: BP 123/58
== END ==
LOC: M IRPRO 09:54
PROVIDERS: ATTEND Physician Assistant Medical
DX: D34 Benign neoplasm of thyroid gland (principal)

== ENCOUNTER → 2021-07-31 | Outpatient (CLI) | payer MEDICARE, MEDICAID ==
[~2021-07-31] MED LIST changes: -LIDOCAINE 1% MDV 20ML VIAL As Ordered ONE
== END ==
LOC: M RAD 10:51
PROVIDERS: ATTEND Internal Medicine Hematology & Oncology
DX: C18.9 Malignant neoplasm of colon, unspecified (principal)

== ENCOUNTER → 2021-08-14 | Outpatient (CLI) | payer MEDICARE, MEDICAID ==
[~2021-08-14] MED LIST changes: +OMEP40CA4 PO; +SUCR1TA PO
[2021-08-14 12:48] LABS: % LABILE ALKALINE PHOSPHATASE 69.2 %; C REACTIVE PROTEIN QUANTITATIV < 0.30 MG/DL (0.00-0.30); LABILE ALKPHOS 81 U/L; STABLE ALKPHOS 36 U/L
== END ==
LOC: M PLALAB 08:43
PROVIDERS: ATTEND Physician Assistant Medical
DX: K65.1 Peritoneal abscess (principal)

== ENCOUNTER → 2021-08-27 | Outpatient (CLI) | payer MEDICARE, MEDICAID ==
[~2021-08-27] MED LIST changes: -OMEP40CA4 PO; -SUCR1TA PO
[2021-08-27 10:51] LABS: HEMOGLOBIN A1c 5.9 %
[2021-08-27 11:05] LABS: ALBUMIN 3.9 GM/DL (3.2-5.2); BILIRUBIN,TOTAL 0.4 MG/DL (0.2-1.0); C REACTIVE PROTEIN QUANTITATIV 0.3 MG/DL (0.00-0.30); CALCIUM LEVEL 9.7 MG/DL (8.8-10.2); CREATININE FOR GFR 1.42 MG/DL (0.70-1.30); POTASSIUM SERUM 4.9 MEQ/L (3.5-5.1); TOTAL PROTEIN 7.7 GM/DL (6.4-8.2)
[2021-08-27 11:10] LABS: BASO # 0.1 10^3/uL (0.0-0.2); BASO % 0.9 % (0.0-1.0); EOS # 0.4 10^3/uL (0.0-0.5); EOS % 3.3 % (0.0-3.0); HEMATOCRIT 50.6 % (42.0-52.0); HEMOGLOBIN 16.5 g/dl (13.5-17.5); LYMPH # 2.7 10^3/uL (1.5-5.0); LYMPH % 24.5 % (24.0-44.0); MEAN CORPUSCULAR HEMOGLOBIN 30.9 pg (27.0-33.0); MEAN CORPUSCULAR HGB CONC 32.6 g/dl (32.0-36.5); MEAN CORPUSCULAR VOLUME 94.8 fl (80.0-96.0); MONO # 0.7 10^3/uL (0.0-0.8); MONO % 6.8 % (2.0-8.0); NEUTROPHILS # 6.9 10^3/uL (1.5-8.5); NEUTROPHILS % 64.2 % (36.0-66.0); PLATELET COUNT, AUTOMATED 192 10^3/uL (150-450); RED BLOOD COUNT 5.34 10^6/uL (4.30-6.10); WHITE BLOOD COUNT 10.8 10^3/uL (4.0-10.0)
[2021-08-27 11:43] LABS: ERYTHROCYTE SEDIMENTATION RATE 6 mm/hr (0-20)
== END ==
LOC: M PLALAB 08:41
PROVIDERS: ATTEND Physician Assistant Medical
DX: J01.11 Acute recurrent frontal sinusitis (principal); E11.42 Type 2 diabetes mellitus with diabetic polyneuropathy

== ENCOUNTER 2021-09-13 08:37 | Emergency (ER) | payer MEDICARE, MEDICAID ==
[~2021-09-13] VITALS: Ht 177.8 cm; Wt 68.6 kg
[~2021-09-13 08:37] MED LIST changes: -E-Z-GAS II EFFERVESCENT PACKET (SODIUM BICARB./CITRIC ACID/SIMETHICONE) As Ordered ONE; -E-Z-HD 98% w/w 340GM SUSP BTL As Ordered ONE; -E-Z-PAQUE 96% w/w SUSP 176GM BTL As Ordered ONE; -ISOVUE-370 76% 100ML VIAL As Ordered ONE; -OMEP40CA4 PO; -SUCR1TA PO
[2021-09-13] MEDS ORDERED: HALOPERIDOL 5MG/ML VIAL (J1630 PER 1) IV ONE (09:45)
[2021-09-13] MEDS ORDERED: MORPHINE 2 MG/ML 1ML VIAL IV PRN (09:45)
[2021-09-13] MEDS ORDERED: NS 1,000 ML IV ONE (09:45)
[2021-09-13 09:48] LABS: BASO # 0.2 10^3/uL (0.0-0.2); EOS # 0.3 10^3/uL (0.0-0.5); HEMATOCRIT 45.6 % (42.0-52.0); HEMOGLOBIN 16.2 g/dl (13.5-17.5); LYMPH # 3.1 10^3/uL (1.5-5.0); MEAN CORPUSCULAR HEMOGLOBIN 30.9 pg (27.0-33.0); MEAN CORPUSCULAR HGB CONC 35.5 g/dl (32.0-36.5); MEAN CORPUSCULAR VOLUME 86.9 fl (80.0-96.0); MONO # 1.1 10^3/uL (0.0-0.8); MONO % 7.3 % (2.0-8.0); NEUTROPHILS # 10.9 10^3/uL (1.5-8.5); NEUTROPHILS % 69.3 % (36.0-66.0); PLATELET COUNT, AUTOMATED 209 10^3/uL (150-450); RED BLOOD COUNT 5.25 10^6/uL (4.30-6.10); WHITE BLOOD COUNT 15.7 10^3/uL (4.0-10.0)
[2021-09-13 10:08] LABS: CALCIUM LEVEL 9.5 MG/DL (8.8-10.2); CREATININE FOR GFR 1.47 MG/DL (0.70-1.30); GLOMERULAR FILTRATION RATE 51.8 (>49); POTASSIUM SERUM 3.8 MEQ/L (3.5-5.1)
[2021-09-13 10:10] LABS: ALBUMIN 4.1 GM/DL (3.2-5.2); BILIRUBIN,DIRECT 0.2 MG/DL (0.0-0.2); BILIRUBIN,TOTAL 0.5 MG/DL (0.2-1.0)
[2021-09-13 10:13] LABS: CK-MB VALUE MASS 1.3 NG/ML (<3.6); MB/CK RELATIVE INDEX 1.07 (< OR =4)
[2021-09-13 11:42] LABS: CK-MB VALUE MASS 1.7 NG/ML (<3.6); MB/CK RELATIVE INDEX 1.04 (< OR =4)
[2021-09-13] MEDS ORDERED: GI COCKTAIL 50ML BTL(HYOSCYAMINE/MAALOX/LIDOCAINE VISCOUS)(1:3:1) PO ONE (12:45)
[2021-09-13] MEDS ORDERED: lisinopriL 5 MG TAB PO ONE (12:45)
[2021-09-13] MEDS ORDERED: SUCR1TA PO (13:20)
[2021-09-13] MEDS ORDERED: OMEP40CA4 PO (13:20)
[2021-09-13 13:45] VITALS: BP 170/88
== END 2021-09-13 13:47 | disposition home or self-care (01) ==
LOC: M ED 08:37
DX: T50.995A Adverse effect of other drugs, medicaments and biological substances, initial encounter (principal); R10.13 Epigastric pain; K76.0 Fatty (change of) liver, not elsewhere classified; Z85.038 Personal history of other malignant neoplasm of large intestine; E11.9 Type 2 diabetes mellitus without complications; E78.5 Hyperlipidemia, unspecified; F17.200 Nicotine dependence, unspecified, uncomplicated; F20.9 Schizophrenia, unspecified; Z79.82 Long term (current) use of aspirin; Z79.899 Other long term (current) drug therapy
CPT/HCPCS: 71045; 74018; 74177; 80047; 80048; 80076; 82550; 82553; 83605; 83690; 84484; 85025; 93005; 93041; 96361; 96374; 96375; 99284; J1630; J2270; Q9967

== ENCOUNTER → 2021-09-13 | Outpatient (CLI) | payer MEDICARE, MEDICAID ==
[~2021-09-13] MED LIST changes: +E-Z-GAS II EFFERVESCENT PACKET (SODIUM BICARB./CITRIC ACID/SIMETHICONE) As Ordered ONE; +E-Z-HD 98% w/w 340GM SUSP BTL As Ordered ONE; +E-Z-PAQUE 96% w/w SUSP 176GM BTL As Ordered ONE; +ISOVUE-370 76% 100ML VIAL As Ordered ONE; +OMEP40CA4 PO; +SUCR1TA PO
== END ==
LOC: M RAD 07:36
PROVIDERS: ATTEND Physician Assistant Medical
DX: R10.13 Epigastric pain (principal)

== ENCOUNTER → 2021-12-17 | Outpatient (CLI) | payer MEDICARE, MEDICAID ==
[~2021-12-17] VITALS: Ht 177.8 cm; Wt 70.6 kg
[~2021-12-17] MED LIST changes: +OMEP40CA4 PO; +OXYC-1 PO; +SENN-80 PO; +SUCR1TA PO
[2021-12-17 15:06] VITALS: BP 95/56
== END ==
LOC: M PAL 13:55
PROVIDERS: ATTEND Nurse Practitioner Adult Health
DX: M54.9 Dorsalgia, unspecified (principal); G89.29 Other chronic pain; Z85.038 Personal history of other malignant neoplasm of large intestine; K76.0 Fatty (change of) liver, not elsewhere classified; S29.0 Injury of muscle and tendon at thorax level; M79.674 Pain in right toe(s); E11.42 Type 2 diabetes mellitus with diabetic polyneuropathy; R53.83 Other fatigue; R06.02 Shortness of breath; F41.9 Anxiety disorder, unspecified; K59.00 Constipation, unspecified; F20.9 Schizophrenia, unspecified; E78.5 Hyperlipidemia, unspecified; F17.210 Nicotine dependence, cigarettes, uncomplicated; M47.26 Other spondylosis with radiculopathy, lumbar region; G47.33 Obstructive sleep apnea (adult) (pediatric); Z87.820 Personal history of traumatic brain injury; Z51.5 Encounter for palliative care; Z79.82 Long term (current) use of aspirin; Z79.891 Long term (current) use of opiate analgesic; Z79.899 Other long term (current) drug therapy; Z79.51 Long term (current) use of inhaled steroids; L60.0 Ingrowing nail; R06.09 Other forms of dyspnea; F32.A Depression, unspecified; Z98.0 Intestinal bypass and anastomosis status; Z82.49 Family history of ischemic heart disease and other diseases of the circulatory system

== ENCOUNTER → 2021-12-25 | Outpatient (CLI) | payer MEDICARE, MEDICAID ==
[2021-12-25 13:58] LABS: BASO # 0.1 10^3/uL (0.0-0.2); BASO % 0.8 % (0.0-1.0); EOS # 0.4 10^3/uL (0.0-0.5); EOS % 2.9 % (0.0-3.0); HEMATOCRIT 46.4 % (42.0-52.0); HEMOGLOBIN 14.9 g/dl (13.5-17.5); LYMPH # 2.5 10^3/uL (1.5-5.0); LYMPH % 19.4 % (24.0-44.0); MEAN CORPUSCULAR HEMOGLOBIN 30.4 pg (27.0-33.0); MEAN CORPUSCULAR HGB CONC 32.1 g/dl (32.0-36.5); MEAN CORPUSCULAR VOLUME 94.7 fl (80.0-96.0); MONO % 7.9 % (2.0-8.0); NEUTROPHILS # 8.8 10^3/uL (1.5-8.5); NEUTROPHILS % 68.6 % (36.0-66.0); PLATELET COUNT, AUTOMATED 245 10^3/uL (150-450); WHITE BLOOD COUNT 12.9 10^3/uL (4.0-10.0)
[2021-12-25 14:41] LABS: ALBUMIN 3.9 GM/DL (3.2-5.2); BILIRUBIN,TOTAL 0.5 MG/DL (0.2-1.0); CALCIUM LEVEL 9.5 MG/DL (8.8-10.2); CREATININE FOR GFR 1.4 MG/DL (0.70-1.30); GLOMERULAR FILTRATION RATE 54.8 (>49); POTASSIUM SERUM 4.9 MEQ/L (3.5-5.1); TOTAL PROTEIN 7.6 GM/DL (6.4-8.2)
== END ==
LOC: M PLALAB 09:24
PROVIDERS: ATTEND Physician Assistant Medical
DX: N18.30 Chronic kidney disease, stage 3 unspecified (principal); E11.42 Type 2 diabetes mellitus with diabetic polyneuropathy

== ENCOUNTER 2022-01-19 09:38 | Inpatient (IN) | payer MEDICARE, MEDICAID ==
[~2022-01-19] VITALS: Ht 175.3 cm; Wt 67.2 kg
[2022-01-19 11:19] LABS: BASO # 0.1 10^3/uL (0.0-0.2); BASO % 0.8 % (0.0-1.0); EOS # 0.3 10^3/uL (0.0-0.5); EOS % 2.8 % (0.0-3.0); HEMATOCRIT 41.1 % (42.0-52.0); HEMOGLOBIN 14.1 g/dl (13.5-17.5); LYMPH # 2.2 10^3/uL (1.5-5.0); LYMPH % 18.5 % (24.0-44.0); MEAN CORPUSCULAR HEMOGLOBIN 30.7 pg (27.0-33.0); MEAN CORPUSCULAR HGB CONC 34.3 g/dl (32.0-36.5); MEAN CORPUSCULAR VOLUME 89.3 fl (80.0-96.0); MONO # 0.9 10^3/uL (0.0-0.8); MONO % 7.8 % (2.0-8.0); NEUTROPHILS # 8.1 10^3/uL (1.5-8.5); NEUTROPHILS % 69.6 % (36.0-66.0); PLATELET COUNT, AUTOMATED 252 10^3/uL (150-450); WHITE BLOOD COUNT 11.7 10^3/uL (4.0-10.0)
[2022-01-19 11:41] LABS: ERYTHROCYTE SEDIMENTATION RATE 36 mm/hr (0-20)
[2022-01-19] MEDS: INSULIN LISPRO (NovoLOG) PER UNIT SC SCH ×3 (12:00→20:33)
[2022-01-19 12:05] LABS: BLOOD UREA NITROGEN 20 MG/DL (7-18); C REACTIVE PROTEIN QUANTITATIV 0.59 MG/DL (0.00-0.30); CALCIUM LEVEL 9.3 MG/DL (8.8-10.2); CARBON DIOXIDE LEVEL 24 MEQ/L (21-32); CHLORIDE LEVEL 111 MEQ/L (98-107); CREATININE FOR GFR 1.19 MG/DL (0.70-1.30); GLOMERULAR FILTRATION RATE > 60.0 (>49); GLUCOSE, FASTING 137 MG/DL (70-100); POTASSIUM SERUM 4.8 MEQ/L (3.5-5.1); SODIUM LEVEL 140 MEQ/L (136-145)
[2022-01-19] MEDS ORDERED: GLUCOSE 4GM CHEW TABLET PO PRN (13:10)
[2022-01-19] MEDS ORDERED: VANCOMYCIN HCL 1,000 MG, VIAL MATE ADAPTER 1 EACH in NS 250 ML IV SCH (13:10)
[2022-01-19] MEDS ORDERED: GLUCAGON INJ 1MG VIAL SC PRN (13:10)
[2022-01-19] MEDS ORDERED: DEXTROSE 50% 50 ML SYRINGE IV PRN (13:10)
[2022-01-19] MEDS ORDERED: ACETAMINOPHEN 500 MG TAB PO PRN (13:25)
[2022-01-19] MEDS ORDERED: GABAPENTIN 300 MG CAP PO PRN (13:25)
[2022-01-19] MEDS ORDERED: PERCOCET 5MG/325MG TAB PO PRN (13:25)
[2022-01-19] MEDS ORDERED: ALBUTEROL 90 MCG/ACT 8GM HFA INHALER INH PRN (13:25)
[2022-01-19 13:32] LABS: RSV AMPLIFICATION NEGATIVE (NEGATIVE)
[2022-01-19] MEDS ORDERED: TIZA2TA PO (13:46)
[2022-01-19] MEDS ORDERED: ALBU8.5H INH (13:46)
[2022-01-19] MEDS ORDERED: PANT40TA29 PO (13:49)
[2022-01-19] MEDS ORDERED: LISI2.5T9 PO (13:49)
[2022-01-19] MEDS ORDERED: SERT50TA29 PO ×2 (13:54→13:57)
[2022-01-19] MEDS ORDERED: PT COMMENT (13:57)
[2022-01-19 14:00] VITALS: BP 125/69
[2022-01-19] MEDS ORDERED: HOME MED LIST COMPLETE! XX SCH (14:00)
[2022-01-19] MEDS ORDERED: OXYC-1 PO (14:39)
[2022-01-19 15:02] LABS: INR 1.03; PARTIAL THROMBOPLASTIN TIME 32.9 SECONDS (25.9-37.0); PROTHROMBIN TIME 13.9 SECONDS (12.7-14.5)
[2022-01-19] MEDS: PIPERACILLIN/TAZOBACTAM SOD 4.5 GM in D5W MINI-BAG PLUS 50 ML IV SCH ×2 (15:11→20:29)
[2022-01-19] MEDS ORDERED: VANCOMYCIN HCL 750 MG, VIAL MATE ADAPTER 1 EACH in D5W 250 ML IV ONE ×2 (16:00→17:00)
[2022-01-19] MEDS: ADVAIR HFA 115/21MCG INHALER INH SCH (19:21)
[2022-01-19] MEDS: ATORVASTATIN 20 MG TAB PO SCH (20:28)
[2022-01-19] MEDS: SERTRALINE HCL 50 MG TAB PO SCH (20:28)
[2022-01-19] MEDS: ENOXAPARIN 40MG/0.4ML SYRINGE (J1650 PER 10MG) SC SCH (20:29)
[2022-01-19] MEDS ORDERED: traZODone 100 MG TAB PO PRN (21:00)
[2022-01-19 22:00] VITALS: BP 129/63
[2022-01-20] VITALS (10 sets, daily range): BP systolic 104–137; BP diastolic 52–67
[2022-01-20] MEDS: PIPERACILLIN/TAZOBACTAM SOD 4.5 GM in D5W MINI-BAG PLUS 50 ML IV SCH ×4 (03:05→21:10)
[2022-01-20] MEDS: VANCOMYCIN HCL 750 MG, VIAL MATE ADAPTER 1 EACH in D5W 250 ML IV SCH (03:54)
[2022-01-20] MEDS: VANCOMYCIN HCL 500 MG in D5W MINI-BAG PLUS 100 ML IV SCH (05:13)
[2022-01-20 06:07] LABS: HEMATOCRIT 40.2 % (42.0-52.0); HEMOGLOBIN 13.3 g/dl (13.5-17.5); MEAN CORPUSCULAR HEMOGLOBIN 30.2 pg (27.0-33.0); MEAN CORPUSCULAR HGB CONC 33.1 g/dl (32.0-36.5); MEAN CORPUSCULAR VOLUME 91.2 fl (80.0-96.0); PLATELET COUNT, AUTOMATED 252 10^3/uL (150-450); RED BLOOD COUNT 4.41 10^6/uL (4.30-6.10); WHITE BLOOD COUNT 11.3 10^3/uL (4.0-10.0)
[2022-01-20 06:39] LABS: BLOOD UREA NITROGEN 22 MG/DL (7-18); CARBON DIOXIDE LEVEL 22 MEQ/L (21-32); CHLORIDE LEVEL 109 MEQ/L (98-107); CREATININE FOR GFR 1.22 MG/DL (0.70-1.30); GLOMERULAR FILTRATION RATE > 60.0 (>49); GLUCOSE, FASTING 101 MG/DL (70-100); POTASSIUM SERUM 4.3 MEQ/L (3.5-5.1); SODIUM LEVEL 139 MEQ/L (136-145)
[2022-01-20] MEDS: ADVAIR HFA 115/21MCG INHALER INH SCH ×2 (07:28→20:33)
[2022-01-20] MEDS: INSULIN LISPRO (NovoLOG) PER UNIT SC SCH ×4 (07:30→21:00)
[2022-01-20] MEDS: LISINOPRIL *2.5 MG* TAB PO SCH (08:47)
[2022-01-20] MEDS: PANTOPRAZOLE 40MG TAB (PROTONIX) PO SCH (08:47)
[2022-01-20] MEDS ORDERED: FLUBLOK(EGG FREE)(QUAD)INFLUENZA VACC 0.5ML SYRINGE 18YRS & OLDER IM.IMMUN ONE (09:00)
[2022-01-20] MEDS ORDERED: BUPIVACAINE HCL 0.5% 30ML VIAL As Ordered ONE (12:15)
[2022-01-20] MEDS ORDERED: LIDOCAINE 2% MDV 20ML VIAL As Ordered ONE (12:15)
[2022-01-20] MEDS ORDERED: MIDAZOLAM INJ 2MG/2ML VIAL (J2250 PER 1MG) As Ordered ONE (16:38)
[2022-01-20] MEDS ORDERED: fentaNYL 100 MCG/2 ML INJECTION As Ordered ONE (16:38)
[2022-01-20] MEDS ORDERED: ROPIvacaine 0.5% 30ML VIAL As Ordered ONE (17:00)
[2022-01-20] MEDS ORDERED: fentaNYL 100 MCG/2 ML INJECTION IV PRN (17:40)
[2022-01-20] MEDS ORDERED: PERCOCET 5MG/325MG TAB PO PRN (17:40)
[2022-01-20] MEDS ORDERED: LR 1,000 ML IV SCH (17:40)
[2022-01-20] MEDS ORDERED: ONDANSETRON 4MG 2ML VIAL IV PRN (17:40)
[2022-01-20] MEDS: ATORVASTATIN 20 MG TAB PO SCH (21:09)
[2022-01-20] MEDS: SERTRALINE HCL 50 MG TAB PO SCH (21:09)
[2022-01-20] MEDS: ENOXAPARIN 40MG/0.4ML SYRINGE (J1650 PER 10MG) SC SCH (21:10)
[2022-01-21 02:00] VITALS: BP 124/58
[2022-01-21 03:09] LABS: HEMATOCRIT 39.5 % (42.0-52.0); HEMOGLOBIN 13.3 g/dl (13.5-17.5); MEAN CORPUSCULAR HEMOGLOBIN 30.2 pg (27.0-33.0); MEAN CORPUSCULAR HGB CONC 33.7 g/dl (32.0-36.5); MEAN CORPUSCULAR VOLUME 89.8 fl (80.0-96.0); PLATELET COUNT, AUTOMATED 246 10^3/uL (150-450); WHITE BLOOD COUNT 11.4 10^3/uL (4.0-10.0)
[2022-01-21] MEDS: PIPERACILLIN/TAZOBACTAM SOD 4.5 GM in D5W MINI-BAG PLUS 50 ML IV SCH ×4 (03:15→20:18)
[2022-01-21 03:33] LABS: BLOOD UREA NITROGEN 17 MG/DL (7-18); CALCIUM LEVEL 8.9 MG/DL (8.8-10.2); CARBON DIOXIDE LEVEL 26 MEQ/L (21-32); CHLORIDE LEVEL 109 MEQ/L (98-107); CREATININE FOR GFR 1.12 MG/DL (0.70-1.30); GLOMERULAR FILTRATION RATE > 60.0 (>49); GLUCOSE, FASTING 101 MG/DL (70-100); POTASSIUM SERUM 3.7 MEQ/L (3.5-5.1); SODIUM LEVEL 139 MEQ/L (136-145)
[2022-01-21] MEDS: VANCOMYCIN HCL 750 MG, VIAL MATE ADAPTER 1 EACH in D5W 250 ML IV SCH (04:14)
[2022-01-21] MEDS ORDERED: HYALURONIDASE 150UNIT/ML 1ML VIAL (AMPHADASE) SC ONE (05:45)
[2022-01-21] MEDS: VANCOMYCIN HCL 500 MG in D5W MINI-BAG PLUS 100 ML IV SCH (05:56)
[2022-01-21 06:00] VITALS: BP 144/68
[2022-01-21] MEDS: ADVAIR HFA 115/21MCG INHALER INH SCH ×2 (07:57→20:45)
[2022-01-21] MEDS: INSULIN LISPRO (NovoLOG) PER UNIT SC SCH ×5 (08:13→21:00)
[2022-01-21] MEDS: PANTOPRAZOLE 40MG TAB (PROTONIX) PO SCH (08:13)
[2022-01-21] MEDS: LISINOPRIL *2.5 MG* TAB PO SCH (08:15)
[2022-01-21 12:37] LABS: C REACTIVE PROTEIN QUANTITATIV < 0.30 MG/DL (0.00-0.30)
[2022-01-21 13:15] LABS: ERYTHROCYTE SEDIMENTATION RATE 36 mm/hr (0-20)
[2022-01-21 14:00] VITALS: BP 167/82
[2022-01-21 15:00] VITALS: BP 160/79
[2022-01-21] MEDS: ENOXAPARIN 40MG/0.4ML SYRINGE (J1650 PER 10MG) SC SCH (20:18)
[2022-01-21] MEDS: SERTRALINE HCL 50 MG TAB PO SCH (20:18)
[2022-01-21] MEDS: ATORVASTATIN 20 MG TAB PO SCH (20:18)
[2022-01-21] MEDS: PERCOCET 5MG/325MG TAB PO PRN (20:33)
[2022-01-21 22:00] VITALS: BP 120/56
[2022-01-22] MEDS: PIPERACILLIN/TAZOBACTAM SOD 4.5 GM in D5W MINI-BAG PLUS 50 ML IV SCH ×2 (02:42→09:06)
[2022-01-22] MEDS: VANCOMYCIN HCL 750 MG, VIAL MATE ADAPTER 1 EACH in D5W 250 ML IV SCH (03:41)
[2022-01-22 05:20] VITALS: BP 133/56
[2022-01-22] MEDS: VANCOMYCIN HCL 500 MG in D5W MINI-BAG PLUS 100 ML IV SCH (05:26)
[2022-01-22] MEDS ORDERED: LevoFLOXacin 750 MG TABLET PO SCH (06:00)
[2022-01-22 06:29] LABS: HEMOGLOBIN 12.8 g/dl (13.5-17.5); MEAN CORPUSCULAR HEMOGLOBIN 29.9 pg (27.0-33.0); MEAN CORPUSCULAR HGB CONC 32.8 g/dl (32.0-36.5); MEAN CORPUSCULAR VOLUME 91.1 fl (80.0-96.0); PLATELET COUNT, AUTOMATED 222 10^3/uL (150-450); RED BLOOD COUNT 4.28 10^6/uL (4.30-6.10); WHITE BLOOD COUNT 10.1 10^3/uL (4.0-10.0)
[2022-01-22 06:59] LABS: BLOOD UREA NITROGEN 13 MG/DL (7-18); CALCIUM LEVEL 8.8 MG/DL (8.8-10.2); CARBON DIOXIDE LEVEL 24 MEQ/L (21-32); CHLORIDE LEVEL 108 MEQ/L (98-107); CREATININE FOR GFR 1.24 MG/DL (0.70-1.30); GLOMERULAR FILTRATION RATE > 60.0 (>49); GLUCOSE, FASTING 101 MG/DL (70-100); POTASSIUM SERUM 3.9 MEQ/L (3.5-5.1); SODIUM LEVEL 140 MEQ/L (136-145)
[2022-01-22] MEDS: ADVAIR HFA 115/21MCG INHALER INH SCH (07:09)
[2022-01-22] MEDS: INSULIN LISPRO (NovoLOG) PER UNIT SC SCH ×2 (07:30→11:46)
[2022-01-22] MEDS ORDERED: ASPIRIN 81MG CHEW TABLET PO SCH (09:00)
[2022-01-22 09:08] VITALS: BP 133/58
[2022-01-22] MEDS: LISINOPRIL *2.5 MG* TAB PO SCH (09:08)
[2022-01-22] MEDS: PANTOPRAZOLE 40MG TAB (PROTONIX) PO SCH (09:12)
[2022-01-22] MEDS ORDERED: OXYC-1 PO (11:41)
[2022-01-22] MEDS: PERCOCET 5MG/325MG TAB PO PRN (11:46)
[2022-01-22] MEDS ORDERED: ASPI81CH8 PO (14:07)
[2022-01-22] MEDS ORDERED: LEVO1TAB40 PO (14:07)
[2022-02-24] MEDS ORDERED: OXYC-1 PO (12:53)
[2022-02-25] MEDS ORDERED: OXYC-1 PO (11:55)
== END 2022-01-22 16:40 | disposition home or self-care (01) | DRG 256 ==
LOC: M ED 09:38 → M ED INP 13:07 → ENRESERV 14:10 → M MS5PR 15:50
PROVIDERS: ADMIT Family Medicine; ATTEND Student in an Organized Health Care Education/Training Program
PROC: 0Y6U0Z3 Detachment at Left 3rd Toe, Low, Open Approach (ICD-10-PCS; principal; 2022-01-21)
DX: E11.52 Type 2 diabetes mellitus with diabetic peripheral angiopathy with gangrene (principal); M86.8X7 Other osteomyelitis, ankle and foot; E11.22 Type 2 diabetes mellitus with diabetic chronic kidney disease; I11.9 Hypertensive heart disease without heart failure; E11.69 Type 2 diabetes mellitus with other specified complication; E11.42 Type 2 diabetes mellitus with diabetic polyneuropathy; E11.621 Type 2 diabetes mellitus with foot ulcer; F20.9 Schizophrenia, unspecified; N18.30 Chronic kidney disease, stage 3 unspecified; Z66 Do not resuscitate; E78.5 Hyperlipidemia, unspecified; Z85.038 Personal history of other malignant neoplasm of large intestine; G47.33 Obstructive sleep apnea (adult) (pediatric); F17.210 Nicotine dependence, cigarettes, uncomplicated; I25.10 Atherosclerotic heart disease of native coronary artery without angina pectoris; R10.13 Epigastric pain; Z79.891 Long term (current) use of opiate analgesic; Z79.899 Other long term (current) drug therapy; Z20.822 Contact with and (suspected) exposure to COVID-19; K21.9 Gastro-esophageal reflux disease without esophagitis

== ENCOUNTER → 2022-01-30 | Outpatient (CLI) | payer MEDICARE ==
[~2022-01-30] MED LIST changes: +ALBU8.5H INH; +ASPI81CH8 PO; +LEVO1TAB40 PO; +PANT40TA29 PO; +PT COMMENT; +SERT50TA29 PO; +TIZA2TA PO
[2022-01-30 14:07] LABS: BASO # 0.1 10^3/uL (0.0-0.2); BASO % 0.7 % (0.0-1.0); EOS # 0.2 10^3/uL (0.0-0.5); EOS % 1.8 % (0.0-3.0); HEMATOCRIT 37.9 % (42.0-52.0); HEMOGLOBIN 12.4 g/dl (13.5-17.5); LYMPH # 2.6 10^3/uL (1.5-5.0); LYMPH % 21.9 % (24.0-44.0); MEAN CORPUSCULAR HEMOGLOBIN 30.4 pg (27.0-33.0); MEAN CORPUSCULAR HGB CONC 32.7 g/dl (32.0-36.5); MEAN CORPUSCULAR VOLUME 92.9 fl (80.0-96.0); MONO % 8.2 % (2.0-8.0); NEUTROPHILS # 8.1 10^3/uL (1.5-8.5); PLATELET COUNT, AUTOMATED 233 10^3/uL (150-450); RED BLOOD COUNT 4.08 10^6/uL (4.30-6.10); WHITE BLOOD COUNT 12.1 10^3/uL (4.0-10.0)
[2022-01-30 14:32] LABS: ERYTHROCYTE SEDIMENTATION RATE 35 mm/hr (0-20)
[2022-01-30 15:10] LABS: ALBUMIN 3.3 GM/DL (3.2-5.2); ALT/SGPT 20 U/L (12-78); BILIRUBIN,TOTAL 0.2 MG/DL (0.2-1.0); BLOOD UREA NITROGEN 29 MG/DL (7-18); C REACTIVE PROTEIN QUANTITATIV 0.93 MG/DL (0.00-0.30); CALCIUM LEVEL 9.1 MG/DL (8.8-10.2); CARBON DIOXIDE LEVEL 24 MEQ/L (21-32); CHLORIDE LEVEL 109 MEQ/L (98-107); CREATININE FOR GFR 1.29 MG/DL (0.70-1.30); GLOMERULAR FILTRATION RATE > 60.0 (>49); GLUCOSE, FASTING 126 MG/DL (70-100); POTASSIUM SERUM 5.1 MEQ/L (3.5-5.1); SODIUM LEVEL 137 MEQ/L (136-145); TOTAL PROTEIN 6.9 GM/DL (6.4-8.2)
== END ==
LOC: M PLALAB 11:07
PROVIDERS: ATTEND Family Medicine
DX: E11.42 Type 2 diabetes mellitus with diabetic polyneuropathy (principal); Z89.422 Acquired absence of other left toe(s)

== ENCOUNTER → 2022-02-25 | Outpatient (CLI) | payer MEDICARE, MEDICAID | LOC: M PAL 11:07 | PROVIDERS: ATTEND Nurse Practitioner Adult Health | DX: C18.2 Malignant neoplasm of ascending colon (principal); R06.02 Shortness of breath; E11.40 Type 2 diabetes mellitus with diabetic neuropathy, unspecified; M86.172 Other acute osteomyelitis, left ankle and foot; M54.16 Radiculopathy, lumbar region; E78.5 Hyperlipidemia, unspecified; G47.33 Obstructive sleep apnea (adult) (pediatric); F20.9 Schizophrenia, unspecified; F17.210 Nicotine dependence, cigarettes, uncomplicated; F41.9 Anxiety disorder, unspecified; F32.A Depression, unspecified; R53.83 Other fatigue; K59.00 Constipation, unspecified; Z89.422 Acquired absence of other left toe(s); Z51.5 Encounter for palliative care; Z79.51 Long term (current) use of inhaled steroids; Z79.82 Long term (current) use of aspirin; Z79.899 Other long term (current) drug therapy; Z79.891 Long term (current) use of opiate analgesic ==

== ENCOUNTER → 2022-04-18 | Outpatient (CLI) | payer MEDICARE, MEDICAID ==
[2022-04-18 13:36] LABS: BASO # 0.1 10^3/uL (0.0-0.2); BASO % 0.7 % (0.0-1.0); EOS # 0.3 10^3/uL (0.0-0.5); EOS % 2.6 % (0.0-3.0); HEMATOCRIT 48.8 % (42.0-52.0); HEMOGLOBIN 15.6 g/dl (13.5-17.5); LYMPH # 2.3 10^3/uL (1.5-5.0); LYMPH % 17.6 % (24.0-44.0); MEAN CORPUSCULAR HEMOGLOBIN 30.5 pg (27.0-33.0); MEAN CORPUSCULAR VOLUME 95.3 fl (80.0-96.0); MONO # 0.9 10^3/uL (0.0-0.8); MONO % 7.2 % (2.0-8.0); NEUTROPHILS # 9.2 10^3/uL (1.5-8.5); NEUTROPHILS % 71.4 % (36.0-66.0); PLATELET COUNT, AUTOMATED 215 10^3/uL (150-450); RED BLOOD COUNT 5.12 10^6/uL (4.30-6.10); WHITE BLOOD COUNT 12.9 10^3/uL (4.0-10.0)
[2022-04-18 13:44] LABS: ERYTHROCYTE SEDIMENTATION RATE 38 mm/hr (0-20)
[2022-04-18 13:55] LABS: HEMOGLOBIN A1c 5.4 % (4.0-6.0)
[2022-04-18 14:03] LABS: C REACTIVE PROTEIN QUANTITATIV < 0.40 MG/DL (<1.0)
[2022-04-18 14:05] LABS: ALKALINE PHOSPHATASE 129 U/L (46-116); ALT/SGPT 12 U/L (7.0-40); AST/SGOT 25 U/L (<34); BILIRUBIN,TOTAL 0.4 MG/DL (0.3-1.2); BLOOD UREA NITROGEN 29 MG/DL (9-23); CALCIUM LEVEL 9.7 MG/DL (8.3-10.6); CARBON DIOXIDE LEVEL 24 MMOL/L (20-31); CHLORIDE LEVEL 105 MMOL/L (98-107); CHOLESTEROL LEVEL 165 MG/DL (<200); CHOLESTEROL RISK RATIO 4.47 (<5); CREATININE FOR GFR 1.17 MG/DL (0.70-1.30); GLOMERULAR FILTRATION RATE > 60.0 (>49); GLUCOSE, FASTING 129 MG/DL (74-106); HDL CHOLESTEROL 36.9 MG/DL (>40); IRON (FE) 74 UG/DL (65-175); LDL CHOLESTEROL 101.7 MG/DL (<100); NON-HDL-C 128 MG/DL; SODIUM LEVEL 140 MMOL/L (136-145); TOTAL PROTEIN 7.7 G/DL (5.7-8.2); TRIGLYCERIDES LEVEL 132 MG/DL (<150)
[2022-04-18 14:06] LABS: FERRITIN 53.7 NG/ML (10.5-307.3)
== END ==
LOC: M LABDRWAD 09:30
PROVIDERS: ATTEND Physician Assistant Medical
DX: E11.42 Type 2 diabetes mellitus with diabetic polyneuropathy (principal); Z89.422 Acquired absence of other left toe(s); E78.2 Mixed hyperlipidemia; Z12.5 Encounter for screening for malignant neoplasm of prostate; D50.8 Other iron deficiency anemias; E04.1 Nontoxic single thyroid nodule; N18.30 Chronic kidney disease, stage 3 unspecified
CPT/HCPCS: 36415; 80053; 80061; 82728; 83036; 83540; 84439; 84443; 85025; 85652; 86140; G0103

== ENCOUNTER → 2022-04-21 | Outpatient (CLI) | payer MEDICARE, MEDICAID ==
[~2022-04-21] MED LIST changes: +ISOVUE-370 76% 100ML VIAL As Ordered ONE
== END ==
LOC: M RAD 12:15
PROVIDERS: ATTEND Internal Medicine Hematology & Oncology
DX: C18.9 Malignant neoplasm of colon, unspecified (principal); Z90.49 Acquired absence of other specified parts of digestive tract; Z98.0 Intestinal bypass and anastomosis status; K44.9 Diaphragmatic hernia without obstruction or gangrene; M47.9 Spondylosis, unspecified; N40.0 Benign prostatic hyperplasia without lower urinary tract symptoms; M16.0 Bilateral primary osteoarthritis of hip; K82.9 Disease of gallbladder, unspecified; E05.90 Thyrotoxicosis, unspecified without thyrotoxic crisis or storm; J43.9 Emphysema, unspecified; I25.10 Atherosclerotic heart disease of native coronary artery without angina pectoris; I51.7 Cardiomegaly; I70.0 Atherosclerosis of aorta; M19.011 Primary osteoarthritis, right shoulder; M19.012 Primary osteoarthritis, left shoulder
CPT/HCPCS: 71260; 74177; Q9967

== ENCOUNTER → 2022-04-29 | Outpatient (CLI) | payer MEDICARE, MEDICAID ==
[~2022-04-29] VITALS: Ht 177.8 cm; Wt 70.4 kg
[~2022-04-29] MED LIST changes: -ISOVUE-370 76% 100ML VIAL As Ordered ONE
[2022-04-29 08:52] VITALS: BP 112/61
== END ==
LOC: M PAL 08:38
PROVIDERS: ATTEND Nurse Practitioner Adult Health
DX: C18.2 Malignant neoplasm of ascending colon (principal); E11.40 Type 2 diabetes mellitus with diabetic neuropathy, unspecified; J44.9 Chronic obstructive pulmonary disease, unspecified; Z51.5 Encounter for palliative care; Z89.422 Acquired absence of other left toe(s); M54.16 Radiculopathy, lumbar region; R05.3 Chronic cough; R53.83 Other fatigue; F20.9 Schizophrenia, unspecified; M43.06 Spondylolysis, lumbar region; G47.33 Obstructive sleep apnea (adult) (pediatric); F17.210 Nicotine dependence, cigarettes, uncomplicated; I25.2 Old myocardial infarction; Z86.73 Personal history of transient ischemic attack (TIA), and cerebral infarction without residual deficits; F32.A Depression, unspecified; Z79.891 Long term (current) use of opiate analgesic; Z79.899 Other long term (current) drug therapy; Z79.82 Long term (current) use of aspirin; M86.172 Other acute osteomyelitis, left ankle and foot

== ENCOUNTER → 2022-07-01 | Outpatient (CLI) | payer MEDICARE, MEDICAID ==
[~2022-07-01] VITALS: Ht 177.8 cm; Wt 68.0 kg
[~2022-07-01] MED LIST changes: +DULC10SU2 PR
[2022-07-01 07:57] VITALS: BP 90/56
== END ==
LOC: M PAL 07:50
PROVIDERS: ATTEND Nurse Practitioner Adult Health
DX: C18.2 Malignant neoplasm of ascending colon (principal); E11.40 Type 2 diabetes mellitus with diabetic neuropathy, unspecified; J44.9 Chronic obstructive pulmonary disease, unspecified; Z51.5 Encounter for palliative care; Z89.422 Acquired absence of other left toe(s); M54.16 Radiculopathy, lumbar region; R06.02 Shortness of breath; R10.9 Unspecified abdominal pain; R63.0 Anorexia; K59.00 Constipation, unspecified; R53.83 Other fatigue; F20.9 Schizophrenia, unspecified; F17.210 Nicotine dependence, cigarettes, uncomplicated; G47.30 Sleep apnea, unspecified; E78.5 Hyperlipidemia, unspecified; M43.06 Spondylolysis, lumbar region; M86.172 Other acute osteomyelitis, left ankle and foot; G62.9 Polyneuropathy, unspecified; Z79.51 Long term (current) use of inhaled steroids; Z79.891 Long term (current) use of opiate analgesic; Z79.899 Other long term (current) drug therapy

== ENCOUNTER → 2022-07-28 | Outpatient (CLI) | payer MEDICARE, MEDICAID ==
[~2022-07-28] MED LIST changes: +FLUT50SP17; -FLUTISP; +SENN-186 PO; -SENN-80 PO
[2022-07-28 10:48] LABS: BASO # 0.1 10^3/uL (0.0-0.2); BASO % 0.7 % (0.0-1.0); EOS # 0.4 10^3/uL (0.0-0.5); EOS % 3.2 % (0.0-3.0); HEMATOCRIT 43.8 % (42.0-52.0); HEMOGLOBIN 14.5 g/dl (13.5-17.5); LYMPH # 2.9 10^3/uL (1.5-5.0); LYMPH % 25.5 % (24.0-44.0); MEAN CORPUSCULAR HGB CONC 33.1 g/dl (32.0-36.5); MEAN CORPUSCULAR VOLUME 90.7 fl (80.0-96.0); MONO % 8.9 % (2.0-8.0); NEUTROPHILS % 61.2 % (36.0-66.0); PLATELET COUNT, AUTOMATED 188 10^3/uL (150-450); RED BLOOD COUNT 4.83 10^6/uL (4.30-6.10); WHITE BLOOD COUNT 11.4 10^3/uL (4.0-10.0)
[2022-07-28 12:01] LABS: HEMOGLOBIN A1c 6.1 % (4.0-6.0)
[2022-07-28 12:21] LABS: FERRITIN 93.4 NG/ML (10.5-307.3)
== END ==
LOC: M PLALAB 08:32
PROVIDERS: ATTEND Physician Assistant Medical
DX: E11.42 Type 2 diabetes mellitus with diabetic polyneuropathy (principal); R10.13 Epigastric pain; D50.8 Other iron deficiency anemias

== ENCOUNTER → 2022-08-06 | Outpatient (CLI) | payer MEDICARE, MEDICAID | LOC: M CARPUL 09:00 | PROVIDERS: ATTEND Physician Assistant Medical | DX: R06.02 Shortness of breath (principal) ==

== ENCOUNTER → 2022-09-02 | Outpatient (CLI) | payer MEDICARE, MEDICAID ==
[~2022-09-02] VITALS: Ht 177.8 cm; Wt 70.4 kg
[2022-09-02 08:02] VITALS: BP 89/55
== END ==
LOC: M PAL 07:57
PROVIDERS: ATTEND Nurse Practitioner Adult Health
DX: C18.2 Malignant neoplasm of ascending colon (principal); Z90.49 Acquired absence of other specified parts of digestive tract; Z51.5 Encounter for palliative care; M47.26 Other spondylosis with radiculopathy, lumbar region; G89.29 Other chronic pain; Z79.891 Long term (current) use of opiate analgesic; E11.40 Type 2 diabetes mellitus with diabetic neuropathy, unspecified; Z55.0 Illiteracy and low-level literacy; F32.9 Major depressive disorder, single episode, unspecified; F20.9 Schizophrenia, unspecified; J44.9 Chronic obstructive pulmonary disease, unspecified; Z79.51 Long term (current) use of inhaled steroids; R10.9 Unspecified abdominal pain; K59.00 Constipation, unspecified; Z92.21 Personal history of antineoplastic chemotherapy; F17.210 Nicotine dependence, cigarettes, uncomplicated; Z86.73 Personal history of transient ischemic attack (TIA), and cerebral infarction without residual deficits; Z79.82 Long term (current) use of aspirin; G47.33 Obstructive sleep apnea (adult) (pediatric); Z89.422 Acquired absence of other left toe(s); Z79.899 Other long term (current) drug therapy

== ENCOUNTER → 2022-09-04 | Outpatient (CLI) | payer MEDICARE, MEDICAID | LOC: M RAD 07:51 | PROVIDERS: ATTEND Physician Assistant Medical | DX: Z12.2 Encounter for screening for malignant neoplasm of respiratory organs (principal); Z87.891 Personal history of nicotine dependence; J43.9 Emphysema, unspecified; J84.10 Pulmonary fibrosis, unspecified; I25.10 Atherosclerotic heart disease of native coronary artery without angina pectoris; I70.0 Atherosclerosis of aorta ==

== ENCOUNTER → 2022-09-15 | Outpatient (CLI) | payer MEDICARE, MEDICAID ==
[~2022-09-15] MED LIST changes: +METHACHOLINE KIT INH ONE
== END ==
LOC: M CARPUL 12:47
PROVIDERS: ATTEND Physician Assistant Medical
DX: R06.02 Shortness of breath (principal)
CPT/HCPCS: 94070; 95070; J7674

== ENCOUNTER → 2022-11-20 | Outpatient (CLI) | payer MEDICARE, MEDICAID ==
[~2022-11-20] MED LIST changes: +GASTROGRAFIN SOLUTION 30ML As Ordered ONE; +ISOVUE-370 76% 100ML VIAL As Ordered ONE; -METHACHOLINE KIT INH ONE
== END ==
LOC: M RAD 13:21
PROVIDERS: ATTEND Nurse Practitioner
DX: C18.9 Malignant neoplasm of colon, unspecified (principal)
CPT/HCPCS: 74177; Q9963; Q9967

== ENCOUNTER → 2022-12-03 | Outpatient (CLI) | payer MEDICARE, MEDICAID ==
[~2022-12-03] VITALS: Ht 177.8 cm; Wt 70.2 kg
[~2022-12-03] MED LIST changes: -GASTROGRAFIN SOLUTION 30ML As Ordered ONE; -ISOVUE-370 76% 100ML VIAL As Ordered ONE
[2022-12-03 08:21] VITALS: BP 108/58; O2SAT 100
== END ==
LOC: M PAL 07:54
PROVIDERS: ATTEND Nurse Practitioner Adult Health
DX: C18.2 Malignant neoplasm of ascending colon (principal); Z51.5 Encounter for palliative care; G89.29 Other chronic pain; M47.26 Other spondylosis with radiculopathy, lumbar region; J44.9 Chronic obstructive pulmonary disease, unspecified; G47.33 Obstructive sleep apnea (adult) (pediatric); G62.9 Polyneuropathy, unspecified; F20.9 Schizophrenia, unspecified; F32.A Depression, unspecified; R53.83 Other fatigue; F17.210 Nicotine dependence, cigarettes, uncomplicated; Z55.0 Illiteracy and low-level literacy; Z79.51 Long term (current) use of inhaled steroids; Z79.82 Long term (current) use of aspirin; Z79.891 Long term (current) use of opiate analgesic; Z79.899 Other long term (current) drug therapy; Z86.73 Personal history of transient ischemic attack (TIA), and cerebral infarction without residual deficits; Z89.422 Acquired absence of other left toe(s); Z90.49 Acquired absence of other specified parts of digestive tract; Z92.21 Personal history of antineoplastic chemotherapy

== ENCOUNTER → 2022-12-25 | Outpatient (CLI) | payer MEDICARE, MEDICAID ==
[2022-12-25 15:26] LABS: BASO # 0.1 10^3/uL (0.0-0.2); BASO % 0.6 % (0.0-1.0); EOS # 0.4 10^3/uL (0.0-0.5); EOS % 3.4 % (0.0-3.0); HEMATOCRIT 45.3 % (42.0-52.0); HEMOGLOBIN 14.7 g/dl (13.5-17.5); LYMPH # 2.7 10^3/uL (1.5-5.0); LYMPH % 25.7 % (24.0-44.0); MEAN CORPUSCULAR HEMOGLOBIN 30.5 pg (27.0-33.0); MEAN CORPUSCULAR HGB CONC 32.5 g/dl (32.0-36.5); MONO # 0.9 10^3/uL (0.0-0.8); MONO % 8.3 % (2.0-8.0); NEUTROPHILS # 6.6 10^3/uL (1.5-8.5); NEUTROPHILS % 61.5 % (36.0-66.0); PLATELET COUNT, AUTOMATED 194 10^3/uL (150-450); RED BLOOD COUNT 4.82 10^6/uL (4.30-6.10); WHITE BLOOD COUNT 10.7 10^3/uL (4.0-10.0)
[2022-12-25 15:37] LABS: CREATININE, URINE 90.2 MG/DL
[2022-12-25 15:39] LABS: MAU/CREAT RATIO 22.1 MCG/MG (0.0-30.0)
[2022-12-25 15:43] LABS: FREE T4 1.41 NG/DL (0.89-1.76)
[2022-12-25 15:47] LABS: THYROID STIMULATING HORMONE 0.01 uIU/ML (0.55-4.78)
[2022-12-25 16:55] LABS: HEMOGLOBIN A1c 6.2 % (4.0-6.0)
== END ==
LOC: M PLALAB 08:56
PROVIDERS: ATTEND Physician Assistant Medical
DX: E04.1 Nontoxic single thyroid nodule (principal); J01.11 Acute recurrent frontal sinusitis; E11.42 Type 2 diabetes mellitus with diabetic polyneuropathy

== ENCOUNTER → 2023-01-21 | Outpatient (CLI) | payer MEDICARE, MEDICAID ==
[~2023-01-21] VITALS: Ht 175.3 cm; Wt 69.5 kg
[2023-01-21 09:03] VITALS: BP 118/66; O2SAT 100
== END ==
LOC: M PAL 08:52
PROVIDERS: ATTEND Nurse Practitioner Adult Health
DX: C18.2 Malignant neoplasm of ascending colon (principal); Z51.5 Encounter for palliative care; G89.29 Other chronic pain; M47.26 Other spondylosis with radiculopathy, lumbar region; J44.9 Chronic obstructive pulmonary disease, unspecified; K08.109 Complete loss of teeth, unspecified cause, unspecified class; G62.9 Polyneuropathy, unspecified; F20.9 Schizophrenia, unspecified; F32.A Depression, unspecified; R53.83 Other fatigue; F17.210 Nicotine dependence, cigarettes, uncomplicated; Z55.0 Illiteracy and low-level literacy; Z79.51 Long term (current) use of inhaled steroids; Z79.891 Long term (current) use of opiate analgesic; Z79.899 Other long term (current) drug therapy; Z86.73 Personal history of transient ischemic attack (TIA), and cerebral infarction without residual deficits; Z89.422 Acquired absence of other left toe(s); Z90.49 Acquired absence of other specified parts of digestive tract; Z92.21 Personal history of antineoplastic chemotherapy

== ENCOUNTER → 2023-02-19 | Outpatient (REF) | payer MEDICARE, MEDICAID ==
[2023-02-19 13:00] LABS: BASO # 0.1 10^3/uL (0.0-0.2); BASO % 0.7 % (0.0-1.0); EOS # 0.3 10^3/uL (0.0-0.5); EOS % 3.1 % (0.0-3.0); HEMATOCRIT 44.9 % (42.0-52.0); HEMOGLOBIN 14.8 g/dl (13.5-17.5); LYMPH # 2.5 10^3/uL (1.5-5.0); LYMPH % 26.2 % (24.0-44.0); MEAN CORPUSCULAR VOLUME 94.1 fl (80.0-96.0); MONO # 0.8 10^3/uL (0.0-0.8); MONO % 8.7 % (2.0-8.0); NEUTROPHILS # 5.8 10^3/uL (1.5-8.5); NEUTROPHILS % 60.9 % (36.0-66.0); PLATELET COUNT, AUTOMATED 212 10^3/uL (150-450); RED BLOOD COUNT 4.77 10^6/uL (4.30-6.10); WHITE BLOOD COUNT 9.5 10^3/uL (4.0-10.0)
[2023-02-19 13:22] LABS: ALBUMIN 3.9 G/DL (3.2-5.2); BILIRUBIN,TOTAL 0.6 MG/DL (0.3-1.2); CALCIUM LEVEL 9.2 MG/DL (8.3-10.6); CREATININE FOR GFR 1.34 MG/DL (0.70-1.30); GLOMERULAR FILTRATION RATE 57.3 (>49); POTASSIUM SERUM 4.9 MMOL/L (3.5-5.1); TOTAL PROTEIN 7.2 G/DL (5.7-8.2)
== END ==
LOC: M LABDRWAD 12:20
PROVIDERS: ATTEND Internal Medicine Hematology & Oncology
DX: C18.9 Malignant neoplasm of colon, unspecified (principal)

== ENCOUNTER → 2023-02-23 | Outpatient (CLI) | payer MEDICARE, MEDICAID | LOC: M PLAIMG 08:05 | PROVIDERS: ATTEND Nurse Practitioner | DX: C18.9 Malignant neoplasm of colon, unspecified (principal); K76.0 Fatty (change of) liver, not elsewhere classified; Z90.49 Acquired absence of other specified parts of digestive tract ==

== ENCOUNTER → 2023-04-23 | Outpatient (CLI) | payer MEDICARE, MEDICAID ==
[~2023-04-23] VITALS: Ht 177.8 cm; Wt 72.4 kg
[~2023-04-23] MED LIST changes: -FLUT50SP17; +FLUTISP
[2023-04-23 09:02] VITALS: BP 108/70; O2SAT 100
== END ==
LOC: M PAL 08:50
PROVIDERS: ATTEND Nurse Practitioner Adult Health
DX: C18.2 Malignant neoplasm of ascending colon (principal); Z51.5 Encounter for palliative care; G89.29 Other chronic pain; M47.26 Other spondylosis with radiculopathy, lumbar region; J43.8 Other emphysema; G47.00 Insomnia, unspecified; G62.9 Polyneuropathy, unspecified; R06.09 Other forms of dyspnea; R53.83 Other fatigue; F17.210 Nicotine dependence, cigarettes, uncomplicated; Z55.0 Illiteracy and low-level literacy; Z79.51 Long term (current) use of inhaled steroids; Z79.891 Long term (current) use of opiate analgesic; Z79.899 Other long term (current) drug therapy; Z86.73 Personal history of transient ischemic attack (TIA), and cerebral infarction without residual deficits; Z89.422 Acquired absence of other left toe(s); Z90.49 Acquired absence of other specified parts of digestive tract; Z92.21 Personal history of antineoplastic chemotherapy

== ENCOUNTER → 2023-06-05 | Outpatient (CLI) | payer MEDICARE, MEDICAID ==
[~2023-06-05] MED LIST changes: -ASPI-161 PO; +ASPI-615 PO
[2023-06-05 11:44] LABS: PSA SCREENING 0.56 NG/ML (< 4.00)
[2023-06-05 11:47] LABS: FREE T4 1.16 NG/DL (0.89-1.76)
[2023-06-05 11:48] LABS: ALBUMIN 3.5 G/DL (3.2-5.2); ALKALINE PHOSPHATASE 96 U/L (46-116); ALT/SGPT 13 U/L (7.0-40); AST/SGOT 11 U/L (<34); BILIRUBIN,TOTAL 0.5 MG/DL (0.3-1.2); BLOOD UREA NITROGEN 18 MG/DL (9-23); CALCIUM LEVEL 8.7 MG/DL (8.3-10.6); CARBON DIOXIDE LEVEL 28 MMOL/L (20-31); CHLORIDE LEVEL 111 MMOL/L (98-107); CREATININE FOR GFR 1.11 MG/DL (0.70-1.30); GLOMERULAR FILTRATION RATE > 60.0 (>49); GLUCOSE, FASTING 104 MG/DL (74-106); POTASSIUM SERUM 4.8 MMOL/L (3.5-5.1); SODIUM LEVEL 142 MMOL/L (136-145); TOTAL PROTEIN 6.5 G/DL (5.7-8.2)
[2023-06-05 11:50] LABS: THYROID STIMULATING HORMONE 0.023 uIU/ML (0.55-4.78)
== END ==
LOC: M PLALAB 08:31
PROVIDERS: ATTEND Physician Assistant Medical
DX: E86.1 Hypovolemia (principal); Z12.5 Encounter for screening for malignant neoplasm of prostate; E04.1 Nontoxic single thyroid nodule
CPT/HCPCS: 36415; 80053; 84439; 84443; G0103

== ENCOUNTER 2023-06-29 11:33 | Day surgery (SDC) | payer MEDICARE, MEDICAID ==
[~2023-06-29] VITALS: Ht 175.3 cm; Wt 69.4 kg
[~2023-06-29 11:33] MED LIST changes: +METH25TAB PO
[2023-06-29] MEDS ORDERED: fentaNYL 100 MCG/2 ML INJECTION As Ordered ONE (13:00)
[2023-06-29] MEDS ORDERED: LIDOCAINE 2% 100MG/5ML SDV (FOR ANES.) As Ordered ONE (13:06)
[2023-06-29] MEDS ORDERED: propofoL 200 MG/20 ML VIAL As Ordered ONE (13:06)
[2023-06-29] MEDS: NS 1,000 ML IV ONE (13:19)
[2023-06-29] MEDS ORDERED: propofoL 500 MG/50 ML VIAL As Ordered ONE (13:41)
[2023-06-29] MEDS ORDERED: GLYCOPYRROLATE INJ 0.2 MG/ML 2 ML VIAL As Ordered ONE (14:15)
[2023-06-29 14:40] VITALS: TEMP 97
[2023-06-29 15:00] VITALS: BP 87/52; O2SAT 95
== END 2023-06-29 15:09 | disposition home or self-care (01) ==
LOC: M OPP 11:33
PROVIDERS: ATTEND Internal Medicine Gastroenterology
DX: Z85.038 Personal history of other malignant neoplasm of large intestine (principal); K63.5 Polyp of colon; Z98.0 Intestinal bypass and anastomosis status; R12 Heartburn; I10 Essential (primary) hypertension; E11.9 Type 2 diabetes mellitus without complications; G47.30 Sleep apnea, unspecified; F17.200 Nicotine dependence, unspecified, uncomplicated; Z79.51 Long term (current) use of inhaled steroids; Z79.84 Long term (current) use of oral hypoglycemic drugs; Z79.891 Long term (current) use of opiate analgesic; Z79.899 Other long term (current) drug therapy
CPT/HCPCS: 43235; 45385; 88305; J3010

== ENCOUNTER → 2023-07-06 | Outpatient (CLI) | payer MEDICARE, MEDICAID | LOC: M RAD 15:53 | PROVIDERS: ATTEND Physician Assistant Medical | DX: E05.90 Thyrotoxicosis, unspecified without thyrotoxic crisis or storm (principal) ==

== ENCOUNTER → 2023-07-23 | Outpatient (CLI) | payer MEDICARE, MEDICAID ==
[~2023-07-23] VITALS: Ht 175.3 cm; Wt 69.1 kg
[2023-07-23 08:50] VITALS: BP 85/49; O2SAT 99
[2023-07-23 09:19] VITALS: BP 110/60
== END ==
LOC: M PAL 08:10
PROVIDERS: ATTEND Nurse Practitioner Adult Health
DX: C18.2 Malignant neoplasm of ascending colon (principal); Z51.5 Encounter for palliative care; G89.29 Other chronic pain; M47.26 Other spondylosis with radiculopathy, lumbar region; J44.9 Chronic obstructive pulmonary disease, unspecified; G47.00 Insomnia, unspecified; G62.9 Polyneuropathy, unspecified; R06.09 Other forms of dyspnea; R53.83 Other fatigue; F17.210 Nicotine dependence, cigarettes, uncomplicated; Z79.51 Long term (current) use of inhaled steroids; Z79.84 Long term (current) use of oral hypoglycemic drugs; Z79.891 Long term (current) use of opiate analgesic; Z79.899 Other long term (current) drug therapy; Z86.73 Personal history of transient ischemic attack (TIA), and cerebral infarction without residual deficits; Z89.422 Acquired absence of other left toe(s); Z90.49 Acquired absence of other specified parts of digestive tract; Z92.21 Personal history of antineoplastic chemotherapy

== ENCOUNTER 2023-08-27 13:57 | Inpatient (IN) | payer MEDICARE, MEDICAID ==
[~2023-08-27] VITALS: Ht 177.8 cm; Wt 68.5 kg
[2023-08-27 17:46] LABS: BASO # 0.1 10^3/uL (0.0-0.2); BASO % 0.4 % (0.0-1.0); EOS # 0.1 10^3/uL (0.0-0.5); EOS % 0.8 % (0.0-3.0); HEMATOCRIT 42.9 % (42.0-52.0); HEMOGLOBIN 14.3 g/dl (13.5-17.5); LYMPH % 11.4 % (24.0-44.0); MEAN CORPUSCULAR HGB CONC 33.3 g/dl (32.0-36.5); MEAN CORPUSCULAR VOLUME 92.9 fl (80.0-96.0); MONO # 1.7 10^3/uL (0.0-0.8); MONO % 9.8 % (2.0-8.0); NEUTROPHILS # 13.5 10^3/uL (1.5-8.5); PLATELET COUNT, AUTOMATED 197 10^3/uL (150-450); RED BLOOD COUNT 4.62 10^6/uL (4.30-6.10); WHITE BLOOD COUNT 17.6 10^3/uL (4.0-10.0)
[2023-08-27 18:05] LABS: BLOOD UREA NITROGEN 24 MG/DL (9-23); CALCIUM LEVEL 9.4 MG/DL (8.3-10.6); CARBON DIOXIDE LEVEL 23 MMOL/L (20-31); CHLORIDE LEVEL 107 MMOL/L (98-107); GLOMERULAR FILTRATION RATE > 60.0 (>49); GLUCOSE, FASTING 108 MG/DL (74-106); POTASSIUM SERUM 4.3 MMOL/L (3.5-5.1); SODIUM LEVEL 139 MMOL/L (136-145)
[2023-08-27 18:06] LABS: ERYTHROCYTE SEDIMENTATION RATE 49 mm/hr (0-20)
[2023-08-27] MEDS ORDERED: VANCOMYCIN HCL 1,250 MG in IV FLUID PLACE HOLDER 1 EA IV ONE (18:45)
[2023-08-27] MEDS: PIPERACILLIN/TAZOBACTAM SOD 4.5 GM in D5W MINI-BAG PLUS 50 ML IV ONE (19:07)
[2023-08-27] MEDS: NS 2,030 ML in IV 1 EA IV ONE (19:07)
[2023-08-27] MEDS: VANCOMYCIN HCL 750 MG, VIAL MATE ADAPTER 1 EACH in D5W 250 ML IV ONE (20:20)
[2023-08-27] MEDS: KETOROLAC 30 MG/ML 1ML VIAL IV ONE (21:25)
[2023-08-27] MEDS: VANCOMYCIN HCL 500 MG in D5W MINI-BAG PLUS 100 ML IV ONE (22:05)
[2023-08-27] MEDS ORDERED: ALBUTEROL 90 MCG/ACT 8GM HFA INHALER INH PRN (22:05)
[2023-08-27] MEDS ORDERED: MOM 30ML SUSPENSION UDC PO PRN (22:05)
[2023-08-27] MEDS ORDERED: GLUCAGON INJ 1MG VIAL SC PRN (22:05)
[2023-08-27] MEDS ORDERED: DEXTROSE 50% 50ML SYRINGE IV PRN (22:05)
[2023-08-27] MEDS ORDERED: NORCO, ANEXSIA 5/325MG TABLET (HYDROcodone/ACETAMINOPHEN) PO PRN (22:05)
[2023-08-27] MEDS ORDERED: GLUCOSE 4 GM CHEW PO PRN (22:05)
[2023-08-27] MEDS ORDERED: HOME MED LIST COMPLETE! XX SCH (22:05)
[2023-08-27] MEDS ORDERED: VANCOMYCIN HCL 750 MG, VIAL MATE ADAPTER 1 EACH in D5W 250 ML IV SCH (22:05)
[2023-08-27 23:50] VITALS: BP 102/64; TEMP 97.8; O2SAT 99
[2023-08-28] MEDS: traZODone 100 MG TAB PO PRN (00:07)
[2023-08-28] MEDS: SERTRALINE HCL 50 MG TAB PO SCH (00:07)
[2023-08-28 05:28] VITALS: BP 134/64; TEMP 97.5; O2SAT 100
[2023-08-28 07:26] LABS: ALBUMIN 3.4 G/DL (3.2-5.2); CREATININE FOR GFR 1.38 MG/DL (0.70-1.30); GLOMERULAR FILTRATION RATE 55.4 (>49); POTASSIUM SERUM 4.5 MMOL/L (3.5-5.1); TOTAL PROTEIN 6.5 G/DL (5.7-8.2)
[2023-08-28] MEDS: INSULIN LISPRO (NovoLOG) PER UNIT SC SCH ×2 (07:30→20:05)
[2023-08-28] MEDS: ADVAIR HFA 115/21MCG INHALER INH SCH (07:39)
[2023-08-28 07:59] LABS: VANCOMYCIN RANDOM 12.9 UG/ML
[2023-08-28] MEDS: NS 1,000 ML IV SCH (08:14)
[2023-08-28] MEDS: VANCOMYCIN HCL 750 MG, VIAL MATE ADAPTER 1 EACH in D5W 250 ML IV SCH (08:14)
[2023-08-28] MEDS: PANTOPRAZOLE 40MG TAB (PROTONIX) PO SCH (08:15)
[2023-08-28] MEDS: LISINOPRIL *2.5 MG* TAB PO SCH (08:16)
[2023-08-28] MEDS ORDERED: VANCOMYCIN HCL 1,000 MG, VIAL MATE ADAPTER 1 EACH in D5W 250 ML IV SCH (09:00)
[2023-08-28 14:00] VITALS: BP 129/59; TEMP 97.9; O2SAT 99
[2023-08-28] MEDS: ACETAMINOPHEN TAB 650MG DOSE (2X325MG) PO PRN (20:30)
[2023-08-28 20:33] VITALS: BP 128/54; TEMP 97.5; O2SAT 98
[2023-08-29] VITALS (7 sets, daily range): BP systolic 68–188; BP diastolic 44–85; TEMP 97.3–98.2; O2SAT 99–100
[2023-08-29 06:33] LABS: HEMOGLOBIN 11.6 g/dl (13.5-17.5); MEAN CORPUSCULAR HEMOGLOBIN 31.5 pg (27.0-33.0); MEAN CORPUSCULAR HGB CONC 34.1 g/dl (32.0-36.5); MEAN CORPUSCULAR VOLUME 92.4 fl (80.0-96.0); PLATELET COUNT, AUTOMATED 170 10^3/uL (150-450); RED BLOOD COUNT 3.68 10^6/uL (4.30-6.10); WHITE BLOOD COUNT 12.9 10^3/uL (4.0-10.0)
[2023-08-29 06:46] LABS: BLOOD UREA NITROGEN 17 MG/DL (9-23); CALCIUM LEVEL 8.6 MG/DL (8.3-10.6); CARBON DIOXIDE LEVEL 22 MMOL/L (20-31); CHLORIDE LEVEL 112 MMOL/L (98-107); CREATININE FOR GFR 1.12 MG/DL (0.70-1.30); GLOMERULAR FILTRATION RATE > 60.0 (>49); GLUCOSE, FASTING 88 MG/DL (74-106); POTASSIUM SERUM 4.3 MMOL/L (3.5-5.1); SODIUM LEVEL 141 MMOL/L (136-145)
[2023-08-29] MEDS: ONDANSETRON 4MG 2ML VIAL IV PRN (09:03)
[2023-08-29] MEDS: METOCLOPRAMIDE INJ 10MG/2ML VIAL IV ONE (11:15)
[2023-08-29] MEDS: MIRALAX *UNIT DOSE* 17GM PACKET PO SCH (20:54)
[2023-08-29] MEDS: NS 1,000 ML IV ONE (21:13)
[2023-08-30 05:00] VITALS: BP 127/61; TEMP 98.4; O2SAT 98
[2023-08-30 06:23] LABS: HEMATOCRIT 36.7 % (42.0-52.0); HEMOGLOBIN 13.2 g/dl (13.5-17.5); MEAN CORPUSCULAR VOLUME 88.9 fl (80.0-96.0); PLATELET COUNT, AUTOMATED 218 10^3/uL (150-450); RED BLOOD COUNT 4.13 10^6/uL (4.30-6.10); WHITE BLOOD COUNT 13.9 10^3/uL (4.0-10.0)
[2023-08-30 06:48] LABS: BLOOD UREA NITROGEN 16 MG/DL (9-23); CALCIUM LEVEL 8.7 MG/DL (8.3-10.6); CARBON DIOXIDE LEVEL 22 MMOL/L (20-31); CHLORIDE LEVEL 107 MMOL/L (98-107); CREATININE FOR GFR 1.17 MG/DL (0.70-1.30); GLOMERULAR FILTRATION RATE > 60.0 (>49); GLUCOSE, FASTING 81 MG/DL (74-106); MAGNESIUM LEVEL 1.6 MG/DL (1.8-2.4); POTASSIUM SERUM 3.8 MMOL/L (3.5-5.1); SODIUM LEVEL 140 MMOL/L (136-145)
[2023-08-30] MEDS ORDERED: lisinopriL 5 MG TAB PO SCH (09:00)
[2023-08-30 09:54] VITALS: BP 139/74
[2023-08-30] MEDS: MAGNESIUM OXIDE 400MG TAB (MAG-OX) PO SCH (09:54)
[2023-08-30] MEDS: LISINOPRIL *2.5 MG* TAB PO SCH (09:54)
[2023-08-30] MEDS ORDERED: PILL CUTTER 1 EACH XX ONE (09:56)
[2023-08-30] MEDS ORDERED: MAGN400T2 PO (10:08)
[2023-08-30] MEDS ORDERED: CLIN150C17 PO (10:08)
[2023-08-30] MEDS ORDERED: GLUCMIS7 SC (13:20)
[2023-08-31] MEDS ORDERED: LANC1COM MC ×2 (13:38→15:43)
[2023-08-31] MEDS ORDERED: FORA1KIT XX ×2 (13:38→15:43)
[2023-08-31 14:10] LABS: CARCINOEMBRYONIC ANTIGEN < 2.0 NG/ML (<2.5)
[2023-08-31 14:25] LABS: CA19-9 TUMOR MARKER,CARBOHYDRA 71.9 U/ML (<35.0)
[2023-08-31] MEDS ORDERED: OXYC-1 PO (15:47)
== END 2023-08-30 14:45 | disposition home health service (06) | DRG 623 ==
LOC: M ED 13:57 → M ED INP 22:04 → M MSPAV 23:44 → OBSVTOIN 08-28 13:50
PROVIDERS: ADMIT Internal Medicine; ATTEND Preventive Medicine Undersea and Hyperbaric Medicine
PROC: 0JBQ0ZZ Excision of Right Foot Subcutaneous Tissue and Fascia, Open Approach (ICD-10-PCS; principal; 2023-08-28)
DX: E11.621 Type 2 diabetes mellitus with foot ulcer (principal); L03.115 Cellulitis of right lower limb; F20.9 Schizophrenia, unspecified; E11.42 Type 2 diabetes mellitus with diabetic polyneuropathy; I10 Essential (primary) hypertension; E78.5 Hyperlipidemia, unspecified; G47.33 Obstructive sleep apnea (adult) (pediatric); Z85.038 Personal history of other malignant neoplasm of large intestine; Z79.899 Other long term (current) drug therapy; Z89.422 Acquired absence of other left toe(s); F17.200 Nicotine dependence, unspecified, uncomplicated; R11.2 Nausea with vomiting, unspecified; R10.9 Unspecified abdominal pain; L97.519 Non-pressure chronic ulcer of other part of right foot with unspecified severity

== ENCOUNTER → 2023-09-03 | Outpatient (CLI) | payer MEDICARE, MEDICAID ==
[~2023-09-03] MED LIST changes: +CLIN150C17 PO; +FORA1KIT XX; +GASTROGRAFIN SOLUTION 30ML As Ordered ONE; +GLUCMIS7 SC; +ISOVUE-370 76% 100ML VIAL As Ordered ONE; +LANC1COM MC; +MAGN400T2 PO
== END ==
LOC: M RAD 08:14
PROVIDERS: ATTEND Internal Medicine Hematology & Oncology
DX: C18.9 Malignant neoplasm of colon, unspecified (principal); R91.1 Solitary pulmonary nodule
CPT/HCPCS: 71260; 74177; Q9963; Q9967

== ENCOUNTER → 2023-09-14 | Outpatient (CLI) | payer MEDICARE, MEDICAID ==
[~2023-09-14] MED LIST changes: -GASTROGRAFIN SOLUTION 30ML As Ordered ONE; -ISOVUE-370 76% 100ML VIAL As Ordered ONE
[2023-09-14 10:47] LABS: BASO # 0.1 10^3/uL (0.0-0.2); BASO % 0.7 % (0.0-1.0); EOS # 0.3 10^3/uL (0.0-0.5); EOS % 2.8 % (0.0-3.0); HEMATOCRIT 39.3 % (42.0-52.0); HEMOGLOBIN 12.9 g/dl (13.5-17.5); LYMPH # 2.9 10^3/uL (1.5-5.0); LYMPH % 26.1 % (24.0-44.0); MEAN CORPUSCULAR HEMOGLOBIN 31.2 pg (27.0-33.0); MEAN CORPUSCULAR HGB CONC 32.8 g/dl (32.0-36.5); MEAN CORPUSCULAR VOLUME 94.9 fl (80.0-96.0); MONO # 0.9 10^3/uL (0.0-0.8); MONO % 8.1 % (2.0-8.0); NEUTROPHILS # 6.9 10^3/uL (1.5-8.5); NEUTROPHILS % 61.6 % (36.0-66.0); PLATELET COUNT, AUTOMATED 275 10^3/uL (150-450); RED BLOOD COUNT 4.14 10^6/uL (4.30-6.10); WHITE BLOOD COUNT 11.2 10^3/uL (4.0-10.0)
[2023-09-14 10:55] LABS: ERYTHROCYTE SEDIMENTATION RATE 31 mm/hr (0-20)
[2023-09-14 11:00] LABS: HEMOGLOBIN A1c 5.5 % (4.0-6.0)
== END ==
LOC: M PLALAB 08:05
PROVIDERS: ATTEND Physician Assistant Medical
DX: L03.115 Cellulitis of right lower limb (principal); E11.621 Type 2 diabetes mellitus with foot ulcer

== ENCOUNTER → 2023-10-22 | Outpatient (CLI) | payer MEDICARE, MEDICAID ==
[~2023-10-22] VITALS: Ht 175.3 cm; Wt 71.1 kg
[2023-10-22 08:46] VITALS: BP 114/67; O2SAT 100
== END ==
LOC: M PAL 08:31
PROVIDERS: ATTEND Nurse Practitioner Adult Health
DX: C18.2 Malignant neoplasm of ascending colon (principal); G89.29 Other chronic pain; M47.26 Other spondylosis with radiculopathy, lumbar region; J44.9 Chronic obstructive pulmonary disease, unspecified; E11.9 Type 2 diabetes mellitus without complications; G47.00 Insomnia, unspecified; G62.9 Polyneuropathy, unspecified; F41.9 Anxiety disorder, unspecified; F20.9 Schizophrenia, unspecified; R06.09 Other forms of dyspnea; R53.83 Other fatigue; F17.210 Nicotine dependence, cigarettes, uncomplicated; Z51.5 Encounter for palliative care; Z79.51 Long term (current) use of inhaled steroids; Z79.84 Long term (current) use of oral hypoglycemic drugs; Z79.891 Long term (current) use of opiate analgesic; Z79.899 Other long term (current) drug therapy; Z86.73 Personal history of transient ischemic attack (TIA), and cerebral infarction without residual deficits; Z89.422 Acquired absence of other left toe(s); Z90.49 Acquired absence of other specified parts of digestive tract; Z92.21 Personal history of antineoplastic chemotherapy

== ENCOUNTER → 2024-01-07 | Outpatient (CLI) | payer MEDICARE, MEDICAID ==
[~2024-01-07] MED LIST changes: +GABA-1490 PO; -GABA600T4 PO; +OXYC20TA2 PO
[2024-01-07 11:35] LABS: FREE T4 0.83 NG/DL (0.89-1.76)
[2024-01-07 11:36] LABS: THYROID STIMULATING HORMONE 3.41 uIU/ML (0.55-4.78)
== END ==
LOC: M PLALAB 09:49
PROVIDERS: ATTEND Physician Assistant Medical
DX: E05.90 Thyrotoxicosis, unspecified without thyrotoxic crisis or storm (principal)

== ENCOUNTER → 2024-01-26 | Outpatient (CLI) | payer MEDICARE, MEDICAID ==
[~2024-01-26] VITALS: Ht 175.3 cm; Wt 71.3 kg
[2024-01-26 07:43] VITALS: BP 83/61; O2SAT 100
[2024-01-26 07:45] VITALS: BP 82/60
== END ==
LOC: M PAL 07:19
PROVIDERS: ATTEND Nurse Practitioner Adult Health
DX: C18.2 Malignant neoplasm of ascending colon (principal); E05.90 Thyrotoxicosis, unspecified without thyrotoxic crisis or storm; G89.29 Other chronic pain; M47.26 Other spondylosis with radiculopathy, lumbar region; J44.9 Chronic obstructive pulmonary disease, unspecified; R06.09 Other forms of dyspnea; G47.00 Insomnia, unspecified; E11.9 Type 2 diabetes mellitus without complications; G62.9 Polyneuropathy, unspecified; F17.210 Nicotine dependence, cigarettes, uncomplicated; R29.6 Repeated falls; Z51.5 Encounter for palliative care; Z55.0 Illiteracy and low-level literacy; Z79.51 Long term (current) use of inhaled steroids; Z79.891 Long term (current) use of opiate analgesic; Z79.899 Other long term (current) drug therapy; Z86.73 Personal history of transient ischemic attack (TIA), and cerebral infarction without residual deficits; Z89.422 Acquired absence of other left toe(s); Z90.49 Acquired absence of other specified parts of digestive tract; Z92.21 Personal history of antineoplastic chemotherapy; Z98.890 Other specified postprocedural states
CPT/HCPCS: 78014; A9516; G0463

== ENCOUNTER → 2024-01-26 | Outpatient (CLI) | payer MEDICARE, MEDICAID | LOC: M RAD 08:27 | PROVIDERS: ATTEND Physician Assistant Medical | DX: E05.90 Thyrotoxicosis, unspecified without thyrotoxic crisis or storm (principal) ==

== ENCOUNTER → 2024-03-17 | Outpatient (CLI) | payer MEDICARE, MEDICAID ==
[~2024-03-17] MED LIST changes: +ISOVUE-370 76% 100ML VIAL As Ordered ONE; +METH-1386 PO; -METH25TAB PO
== END ==
LOC: M RAD 08:38
PROVIDERS: ATTEND Internal Medicine Hematology & Oncology
DX: C18.9 Malignant neoplasm of colon, unspecified (principal); M47.817 Spondylosis without myelopathy or radiculopathy, lumbosacral region
CPT/HCPCS: 74177; Q9967

== ENCOUNTER → 2024-04-27 | Outpatient (CLI) | payer MEDICARE, MEDICAID ==
[~2024-04-27] VITALS: Ht 177.8 cm; Wt 71.3 kg
[~2024-04-27] MED LIST changes: -ISOVUE-370 76% 100ML VIAL As Ordered ONE
[2024-04-27 14:06] VITALS: BP 85/56
== END ==
LOC: M PAL 13:21
PROVIDERS: ATTEND Family Medicine
DX: Z51.5 Encounter for palliative care (principal); C18.9 Malignant neoplasm of colon, unspecified; R52 Pain, unspecified; Z98.890 Other specified postprocedural states; Z79.891 Long term (current) use of opiate analgesic; Z79.51 Long term (current) use of inhaled steroids; Z79.899 Other long term (current) drug therapy

== ENCOUNTER → 2024-05-11 | Outpatient (CLI) | payer MEDICARE, MEDICAID ==
[2024-05-11 13:28] LABS: BASO # 0.1 10^3/uL (0.0-0.2); BASO % 0.9 % (0.0-1.0); EOS # 0.2 10^3/uL (0.0-0.5); HEMATOCRIT 45.2 % (42.0-52.0); LYMPH # 2.4 10^3/uL (1.5-5.0); LYMPH % 20.4 % (24.0-44.0); MEAN CORPUSCULAR HEMOGLOBIN 30.7 pg (27.0-33.0); MEAN CORPUSCULAR HGB CONC 33.2 g/dl (32.0-36.5); MEAN CORPUSCULAR VOLUME 92.6 fl (80.0-96.0); MONO % 8.2 % (2.0-8.0); NEUTROPHILS # 7.9 10^3/uL (1.5-8.5); NEUTROPHILS % 68.2 % (36.0-66.0); PLATELET COUNT, AUTOMATED 204 10^3/uL (150-450); RED BLOOD COUNT 4.88 10^6/uL (4.30-6.10); WHITE BLOOD COUNT 11.6 10^3/uL (4.0-10.0)
[2024-05-11 13:41] LABS: HEMOGLOBIN A1c 5.5 % (4.0-6.0)
[2024-05-11 13:51] LABS: ALBUMIN 4.1 G/DL (3.2-5.2); BILIRUBIN,TOTAL 0.6 MG/DL (0.3-1.2); CALCIUM LEVEL 9.5 MG/DL (8.3-10.6); CHOLESTEROL RISK RATIO 3.49 (<5); CREATININE FOR GFR 1.45 MG/DL (0.70-1.30); GLOMERULAR FILTRATION RATE 52.2 (>49); HDL CHOLESTEROL 34.3 MG/DL (>40); LDL CHOLESTEROL 63.7 MG/DL (<100); NON-HDL-C 85.7 MG/DL; POTASSIUM SERUM 4.8 MMOL/L (3.5-5.1); TOTAL PROTEIN 7.4 G/DL (5.7-8.2)
[2024-05-11 13:54] LABS: FREE T4 1.08 NG/DL (0.89-1.76)
[2024-05-11 13:55] LABS: FERRITIN 154.3 NG/ML (10.5-307.3); THYROID STIMULATING HORMONE 0.573 uIU/ML (0.55-4.78)
== END ==
LOC: M PLALAB 09:04
PROVIDERS: ATTEND Physician Assistant Medical
DX: D50.8 Other iron deficiency anemias (principal); E11.621 Type 2 diabetes mellitus with foot ulcer; E78.2 Mixed hyperlipidemia

== ENCOUNTER → 2024-05-18 | Outpatient (REF) | payer MEDICARE, MEDICAID | LOC: M SFHCPLAZ 10:28 | PROVIDERS: ATTEND Physician Assistant Medical | DX: R10.13 Epigastric pain (principal) ==

== ENCOUNTER → 2024-07-21 | Outpatient (CLI) | payer MEDICARE, MEDICAID ==
[~2024-07-21] MED LIST changes: +GABA-1171 PO; +LANC-66; +ONETTES13
[2024-07-21 14:01] LABS: BASO # 0.1 10^3/uL (0.0-0.2); BASO % 0.7 % (0.0-1.0); EOS # 0.3 10^3/uL (0.0-0.5); EOS % 3.2 % (0.0-3.0); HEMATOCRIT 41.9 % (42.0-52.0); HEMOGLOBIN 13.7 g/dl (13.5-17.5); LYMPH # 2.6 10^3/uL (1.5-5.0); MEAN CORPUSCULAR HEMOGLOBIN 30.9 pg (27.0-33.0); MEAN CORPUSCULAR HGB CONC 32.7 g/dl (32.0-36.5); MEAN CORPUSCULAR VOLUME 94.4 fl (80.0-96.0); MONO # 0.8 10^3/uL (0.0-0.8); MONO % 8.5 % (2.0-8.0); NEUTROPHILS # 5.8 10^3/uL (1.5-8.5); NEUTROPHILS % 60.1 % (36.0-66.0); PLATELET COUNT, AUTOMATED 185 10^3/uL (150-450); RED BLOOD COUNT 4.44 10^6/uL (4.30-6.10); WHITE BLOOD COUNT 9.7 10^3/uL (4.0-10.0)
[2024-07-21 14:36] LABS: FREE T4 0.91 NG/DL (0.89-1.76); THYROID STIMULATING HORMONE 0.805 uIU/ML (0.55-4.78)
== END ==
LOC: M PLALAB 09:17
PROVIDERS: ATTEND Physician Assistant Medical
DX: E05.90 Thyrotoxicosis, unspecified without thyrotoxic crisis or storm (principal)

== ENCOUNTER → 2024-07-27 | Outpatient (CLI) | payer MEDICARE, MEDICAID ==
[~2024-07-27] VITALS: Ht 180.3 cm; Wt 70.5 kg
[2024-07-27 13:01] VITALS: BP 95/60; O2SAT 100
== END ==
LOC: M PAL 12:18
PROVIDERS: ATTEND Physician Assistant
DX: Z51.5 Encounter for palliative care (principal); C18.9 Malignant neoplasm of colon, unspecified; R52 Pain, unspecified; Z98.890 Other specified postprocedural states; Z79.891 Long term (current) use of opiate analgesic; Z79.84 Long term (current) use of oral hypoglycemic drugs; Z79.51 Long term (current) use of inhaled steroids; Z79.899 Other long term (current) drug therapy

== ENCOUNTER 2024-07-28 09:10 | Day surgery (SDC) | payer MEDICARE, MEDICAID ==
[~2024-07-28] VITALS: Ht 177.8 cm; Wt 68.5 kg
[2024-07-28] MEDS: ALBUTEROL SULFATE 2.5MG/0.5ML INH CONCENTRATE NEB SOLN NEB ONE (11:20)
[2024-07-28] MEDS ORDERED: ALBUTEROL SULFATE 2.5MG/0.5ML INH CONCENTRATE NEB SOLN As Ordered ONE (11:27)
[2024-07-28] MEDS ORDERED: fentaNYL 100 MCG/2 ML INJECTION As Ordered ONE (12:06)
[2024-07-28] MEDS ORDERED: propofoL 200 MG/20 ML VIAL As Ordered ONE (12:12)
[2024-07-28] MEDS ORDERED: LIDOCAINE 2% 100MG/5ML SDV (FOR ANES.) As Ordered ONE (12:12)
[2024-07-28] MEDS ORDERED: ePHEDrine SULFATE 25 MG/5 ML(5MG/ML) SYRINGE As Ordered ONE (12:32)
[2024-07-28 12:37] VITALS: TEMP 97.4
[2024-07-28 12:55] VITALS: BP 122/56; O2SAT 100
== END 2024-07-28 13:10 | disposition home or self-care (01) ==
LOC: M OPP 09:10
PROVIDERS: ATTEND Surgery
DX: D12.8 Benign neoplasm of rectum (principal); Z98.0 Intestinal bypass and anastomosis status; Z85.038 Personal history of other malignant neoplasm of large intestine; K21.00 Gastro-esophageal reflux disease with esophagitis, without bleeding; K31.89 Other diseases of stomach and duodenum; D50.9 Iron deficiency anemia, unspecified; G47.30 Sleep apnea, unspecified; Z79.84 Long term (current) use of oral hypoglycemic drugs; Z79.891 Long term (current) use of opiate analgesic; Z79.899 Other long term (current) drug therapy; J44.9 Chronic obstructive pulmonary disease, unspecified; F17.210 Nicotine dependence, cigarettes, uncomplicated
CPT/HCPCS: 43239; 45380; 88305; J3010

== ENCOUNTER → 2024-10-28 | Outpatient (CLI) | payer MEDICARE, MEDICAID ==
[~2024-10-28] VITALS: Ht 177.8 cm; Wt 69.9 kg
[~2024-10-28] MED LIST changes: +ANOR1AER
[2024-10-28 13:10] VITALS: BP 112/65; O2SAT 100
== END ==
LOC: M PAL 12:51
PROVIDERS: ATTEND Physician Assistant
DX: Z51.5 Encounter for palliative care (principal); C18.9 Malignant neoplasm of colon, unspecified; R52 Pain, unspecified; Z98.890 Other specified postprocedural states; Z79.891 Long term (current) use of opiate analgesic; Z79.51 Long term (current) use of inhaled steroids; Z79.84 Long term (current) use of oral hypoglycemic drugs; Z79.899 Other long term (current) drug therapy

== ENCOUNTER → 2024-12-13 | Outpatient (CLI) | payer MEDICARE, MEDICAID ==
[2024-12-13 10:42] LABS: BASO # 0.1 10^3/uL (0.0-0.2); BASO % 1.0 % (0.0-1.0); EOS # 0.3 10^3/uL (0.0-0.5); EOS % 3.3 % (0.0-3.0); LYMPH # 2.6 10^3/uL (1.5-5.0); LYMPH % 28.5 % (24.0-44.0); MONO # 0.8 10^3/uL (0.0-0.8); MONO % 8.5 % (2.0-8.0); NEUTROPHILS # 5.4 10^3/uL (1.5-8.5); NEUTROPHILS % 58.4 % (36.0-66.0); PLATELET COUNT, AUTOMATED 175 10^3/uL (150-450)
[2024-12-13 10:52] LABS: PSA SCREENING 0.76 NG/ML (< 4.00)
[2024-12-13 10:54] LABS: ALT/SGPT 18.0 U/L (7.0-40); AST/SGOT 22.0 U/L (<34); CALCIUM LEVEL 9.8 MG/DL (8.3-10.6); CARBON DIOXIDE LEVEL 27.0 MMOL/L (20-31); CHLORIDE LEVEL 109.0 MMOL/L (98-107); CREATININE FOR GFR 1.43 MG/DL (0.70-1.30); GLOMERULAR FILTRATION RATE 54.7 (>49); IRON (FE) 87.0 UG/DL (65-175); POTASSIUM SERUM 4.9 MMOL/L (3.5-5.1); SODIUM LEVEL 145.0 MMOL/L (136-145)
[2024-12-13 10:55] LABS: FREE T4 0.97 NG/DL (0.89-1.76)
[2024-12-13 11:03] LABS: ESTIMATED AVERAGE GLUCOSE 128.0 MG/DL (60-110)
== END ==
LOC: M PLALAB 07:59
PROVIDERS: ATTEND Physician Assistant Medical
DX: E78.2 Mixed hyperlipidemia (principal); Z12.5 Encounter for screening for malignant neoplasm of prostate; E05.90 Thyrotoxicosis, unspecified without thyrotoxic crisis or storm; E11.621 Type 2 diabetes mellitus with foot ulcer; D50.8 Other iron deficiency anemias; L97.512 Non-pressure chronic ulcer of other part of right foot with fat layer exposed
CPT/HCPCS: 36415; 80053; 82728; 83036; 83540; 84439; 84443; 85025; G0103